=== PATIENT | female | born 1980 | race Caucasian/White ===

== ENCOUNTER 2024-05-25 14:54 | Outpatient (CLI) | payer OTHER, SELFPAY ==
--- NOTE | ~2024-05-25 | MM_ITS ---
EXAMINATION: MM screening kervin BI w batsheva HISTORY: Screening TECHNIQUE: Craniocaudal and mediolateral oblique 3-D tomosynthesis images were obtained and synthetic 2-D images were generated. CAD analysis was submitted and interpreted. COMPARISON: No prior mammogram is available for comparison at this institution. BREAST PARENCHYMAL COMPOSITION: Not dense: There are scattered areas of fibroglandular density. FINDINGS: There are small low-density masses in both breasts which are obscured by fibroglandular tis jay. There are no suspicious calcifications or architectural distortion. IMPRESSION: 1. Small bilateral low-density masses. 2. Additional mammographic views and possible breast ultrasound are recommended. BI-RADS Category 0: Incomplete: Needs additional imaging evaluation. Reviewed, dictated and finalized at location [] IMPRESSION: 1. Small bilateral low-density masses. 2. Additional mammographic views and possible breast ultrasound are recommended . BI-RADS Category 0: Incomplete: Needs additional imaging evaluation.
--- OUTSIDE RECORDS SUMMARY | 2024-05-25 15:01 | XMS_ITS | Encounter Summary ---
Author Organization [facility] Address [address] [place] [address] Care Team Providers Care Local Company Flatbed Truck Driver Name Role Phone Corinna Arroyo MD Primary Care Provider [phone] Reason for Visit * Reason Comments Medication Refill Encounter Details Date Type Department Care Team (Late st Contact Info) Description 11/03/2017 Refill [facility] Endocrinology [address] [place] [address] Leonor Mora MD [address] [place] [address] Social History Tobacco Use Types Packs/Day Years Used Date Smoking Tobacco: Former Cigarettes Q uit: 03/16/2007 Smokeless Tobacco: Never Alcohol Use Standard Drinks/Week Comments No 0 (1 standard drink = 0.6 oz pur e alcohol) Comments No Sex and Gender Information Value Date Recorded Sex Assigned at Not on file Legal Sex Female 5:35 AM INTEGRITY SPECIALIST Gender Identity Not on file Sexual Orientation Not on file documented as of this encounter Miscellaneous Notes * Telephone Encounter - Maral Shah - 11/03/2017 12:58 PM CDT Nov 02/21/18 [place] 08/19/17 documented in this encounter Plan of Treatment Not on file documented as of this encounter Visit Diagnoses Not on filedocumented in this encounter Care Teams Local Company Flatbed Truck Driver Relationship Specialty Start Date End Date Corinna Arroyo MD [address] [place] [address] PCP - General 08/31/07 documented as of this encounter
--- OUTSIDE RECORDS SUMMARY | 2024-05-25 15:02 | XMS_ITS | Encounter Summary ---
Author Organization [facility] Address [address] [place] [address] Care Team Providers Care Helicopter Dispatcher Name Role Phone Corinna Arroyo MD Primary Care Provider [phone] Encounter Details Date Type Department Care Team (Late st Contact Info) Description 06/27/2017 Lab Requisition [facility] Laboratory Services [facility] [address] [place] [phone] [place] [address] [facility] [address] [place] [address] Contact with and (suspected) exposure to potentially hazardous body fluids (CODE) Social History Tobacco Use Types Packs/Day Years Used Date Smoking Tobacco: Former Cigarettes Q uit: 03/16/2007 Smokeless Tobacco: Never Alcohol Use Standard Drinks/Week Comments No 0 (1 standard drink = 0.6 oz pur e alcohol) Comments No Sex and Gender Information Value Date Recorded Sex Assigned at Not on file Legal Sex Female 5:35 AM AIR BRUSH ARTIST Gender Identity Not on file Sexual Orientation Not on file documented as of this encounter Plan of Treatment Not on file documented as of this encounter Procedures Procedure Name Priority Date/Time Associated Diagnosis Comments HEPATITIS C RNA PCR, QUANTITATIVE Routine 06/27/2017 3:50 PM CDT Contact with and (suspected) exposure to potentially hazardous body fluids (CODE) documented in this encounter Results * HEPATITIS C RNA PCR, QUANTITATIVE (06/27/2017 3:50 PM CDT) HEPATITIS C RNA PCR, QUANT Undetected Undetected IU/mL 06/28/2017 8:18 PM CDT [facility] Comment: Result in log IU/mL is Undetected. ADDITIONAL INFORMATION The quantification range of this assay is 15 to 100,000,000 IU/mL (1.18 log to 8.00 log IU/mL). Testing was performed using the chris HCV test ([employer] with the chris HealthyChic0 System. Test Performed by: [facility] [address] [place] [address] Blood Collection / Unknown 06/27/2017 3:50 PM CDT 06/27/2017 3:51 PM CDT Ryan Mccall MD CHEMISTRY ORDERABLES Final R esult [facility] documented in this encounter Visit Diagnoses Diagnosis Contact with and (suspected) exposure to potentially hazardous body fluids (CODE) documented in this encounter Care Teams Helicopter Dispatcher Relationship Specialty Start Date End Date Corinna Arroyo MD [address] [place] [address] PCP - General 08/31/07 documented as of this encounter
--- OUTSIDE RECORDS SUMMARY | 2024-05-25 15:02 | XMS_ITS | Encounter Summary ---
Author Organization [facility] Address [address] [place] [address] Care Team Providers Care Senior Outside Sales Representative Name Role Phone Corinna Arroyo MD Primary Care Provider [phone] Encounter Details Date Type Department Care Team (Late st Contact Info) Description 01/26/2008 Outpatient Historical [facility] [place] [id number] [place] [address] Cholelithiasis NOS Social History Tobacco Use Types Packs/Day Years Used Date Smoking Tobacco: Former Cigarettes Q uit: 03/16/2007 Comments No Sex and Gender Information Value Date Recorded Sex Assigned at Not on file Legal Sex Female 5:35 AM CLIENT DELIVERY MANAGER Gender Identity Not on file Sexual Orientation Not on file documented as of this encounter Plan of Treatment Not on file documented as of this encounter Procedures Procedure Name Priority Date/Time Associated Diagnosis Comments PATHOLOGY Routine 02/02/2008 10:18 AM CLIENT DELIVERY MANAGER documented in this encounter Results * PATHOLOGY (02/02/2008 10:18 AM CLIENT DELIVERY MANAGER) FINAL REPORT [facility] [address] [place], [place] [address] Patient: MARY GREGORIO : 1980 Procedure Date: 02/02/2008 Accession Date: 02/02/2008 Case No: [id number] Ordering Dr: ANABELLA OHARA Case types AW, BW, FW, NW and SH are performed by [facility] [place], [place] SURGICAL PATHOLOGY & NON-GYNECOLOGIC CYTOPATHOLOGY REPORT DIAGNOSIS GALLBLADDER, LAPAROSCOPIC CHOLECYSTECTOMY: - CHRONIC CHOLECYSTITIS, CHOLESTEROLOSIS, AND CHOLELITHIASIS. Specimen Description: Gallbladder. Operative Procedure: Laparoscopic cholecystectomy. Patient Information/Histor y/Diagnosis: Biliary colic. Gross: Received in one container labeled Mary Gregorio., gallbladder is a 7.8 x 2.6 x 1.3-cm intact gallbladder. The serosa is pink-ray and glistening. The mucosa is red with scattered yellow speckling. The cystic duct is patent. Eleven easily crushed yellow, multifaceted stones are identified within the lumen of the gallbladder. The stones range from 0.2 cm to 0.4 cm. The average wall thickness is 0.2 cm. The cystic duct margin and automotive sales representative sections of gallbladder are submitted in block A1. [facility]/SK 02.02.2008 05:11 pm Microscopic: The slide is labeled [id number] and Mary Gregorio. Histologic sections of the gallbladder mucosa reveal chronic inflammation. There are collections of foamy macrophages present in the glandular villi, consistent with cholesterolosis. There is no evidence of malignancy. GL/GDH 02.05.2008 02:45 pm Staging Form: No. ELECTRONIC SIGNATURE FOR ALONZO CAMPOS M.D.- 02/05/08 04:23 pm INTERFACE SYSTEM 02/02/2008 10:1 8 AM CLIENT DELIVERY MANAGER Anabella Ohara MD PATHOLOGY/CYTOLOGY ORDERABLES Final Result INTERFACE SYSTEM Refer to clinic/hospital department documented in this encounter Visit Diagnoses Diagnosis Calculus of gallbladder without mention of cholecystitis or obstruction documented in this encounter Care Teams Senior Outside Sales Representative Relationship Specialty Start Date End Date Corinna Arroyo MD [address] [place] [address] PCP - General 08/31/07 documented as of this encounter
--- OUTSIDE RECORDS SUMMARY | 2024-05-25 15:02 | XMS_ITS | Encounter Summary ---
Author Organization [employer] Address [address] [place] [address] Care Team Providers Care Kosher Dietary Service Manager Name Role Phone Corinna Arroyo MD Primary Care Provider [phone] Encounter Details Date Type Department Care Team (Latest Contact Info) Description 09/02/2008 Outpatient Historical [facility] Tasneem Marshall MD [address] [place] [address] Other Specified Noninflammatory Disorder of Vagina Social History Tobacco Use Types Packs/Day Years Used Date Smoking Tobacco: Former Cigarettes Q uit: 03/16/2007 Comments No Sex and Gender Information Value Date Recorded Sex Assigned at Not on file Legal Sex Female 5:35 AM VIDEO GAME MAKER Gender Identity Not on file Sexual Orientation Not on file documented as of this encounter Plan of Treatment Not on file documented as of this encounter Visit Diagnoses Diagnosis Other specified noninflammatory disorder of vagina documented in this encounter Care Teams Kosher Dietary Service Manager Relationship Specialty Start Date End Date Corinna Arroyo MD [address] [place] [address] PCP - General 08/31/07 documented as of this encounter
--- OUTSIDE RECORDS SUMMARY | 2024-05-25 15:03 | XMS_ITS | Clinical Summary ---
Author Organization [facility] Address [address] [place] [address] Care Team Providers Care Relationship Executive Name Role Phone Corinna Arroyo MD Primary Care Provider [phone] Allergies Active Allergy Reactions Criticality Noted Date Comments Mushroom Combination No.1 Fever Low 09/15/2012 Medications Cholecalciferol , Vitamin D3, 2,000 unit Capsule Take 4,000 Units by mouth daily. 08/04/2015 Active NEXPLANON 68 mg Implant 01/13/2018 Active montelukast (SINGULAIR) 10 mg tablet TAKE 1 TABLET BY MOUTH ONCE DAILY 30 Tablet 06/06/2018 Active LEVOTHYROXINE 150 mcg tablet TAKE 1 TABLET BY MOUTH EVERY MORNING 90 Tablet 03/06/2019 Active Active Problems Problem Noted Date Diagnosed Date Prediabetes 09/04/2018 Morbid obesity with BMI of 50.0-59.9, adult 07/13 PCOS (polycystic ovarian syndrome) 05/20/2016 Primary hypothyroidism 08/01/2015 Hyperandrogenemia 08/01/2015 Female hirsutism 05/03/2014 Vitamin D deficiency 03/05/2010 Asthma, exercise induced 03/05/2010 Resolved Problems Problem Noted Date Diagnosed Date Resolved Date , GDMA2; Girl 06/25/2017 09/04/2018 Normal labor 06/24/2017 06/25/2017 Gestational diabetes mellitus, class A2 06/24/2017 06/25/2017 uterine contractions in third trimester, antepartum 05/23/2017 11/28/2017 Supervision of high risk pre gnancy in third trimester 01/24/2017 11/28/2017 GDM (gestational diabetes mellitus) 12/29/2016 09/04/2018 Insulin resistance 08/01/2015 9 Elevated fasting glucose 07/23/2013 Dyslipidemia (high LDL; low HDL) 04/24/2013 08/01/2015 Irregular menstrual cycle 11/30/2012 Hypothyroidism 09/15/2012 08/01/2015 Hypothyroidism 09/06/2012 09/15/2012 Depressive disorder 01/29/2010 08/19/19 13 Morbid obesity 01/29/2010 08/02/2016 Immunizations Immunization Administration Dates Next Due (ADACEL/BOOSTRIX)(10 YR UP) TDAP VACCINE, 0.5ML, IM 04/05/2017 INFLUENZA VACCINE QUADRIVALENT 3 YR UP PF IM 05/2013 Influenza Seasonal Unspecified Formulation IM ,12/24/2015 Family History Medical History Relation Name Comments Heart Disease Father Hypertension Father Breast Cancer Maternal Grandmother 70s Colon Cancer Maternal Grandmother Hypertension Mother Ovarian Cancer Neg Hx Relation Name Status Comments Father Alive Maternal Grandfather Alive Maternal Grandmother Mother Alive Paternal Grandfather Paternal Grandmother Social History Tobacco Use Types Packs/Day Years Used Date Smoking Tobacco: Former Cigarettes Q uit: 03/16/2007 Smokeless Tobacco: Never Alcohol Use Standard Drinks/Week Comments No 0 (1 standard drink = 0.6 oz pur e alcohol) Comments No Sex and Gender Information Value Date Recorded Sex Assigned at Not on file Legal Sex Female 5:35 AM DENTISTRY PROFESSOR Gender Identity Not on file Sexual Orientation Not on file Last Filed Vital Signs Vital Sign Reading Time Taken Comments Blood Pressure 117/82 03/24/2021 9:25 AM DENTISTRY PROFESSOR Pulse 80 10/02/2018 10:05 AM CDT Temperature 36.7 C (98 F) 06/27/2017 8:30 AM CDT Respiratory Rate 18 06/27/2017 8:30 AM CDT Oxygen Saturation 98% 06/26/2017 9:30 PM CDT Inhaled Oxygen Concentration - - Weight 133.8 kg (295 lb) 03/24/2021 9:25 AM DENTISTRY PROFESSOR Height 162.6 cm (5' 4 ) 03/24/2021 9:25 AM DENTISTRY PROFESSOR Body Mass Index 50.64 03/24/2021 9:25 AM DENTISTRY PROFESSOR Plan of Treatment Health Maintenance Due Date Last Done Comments PNEUMOCOCCAL VACCINE 0-49 YEARS (1 of 2 - PCV) 1988 HEPATITIS B VACCINES (1 of 3 - 19+ 3-dose series) 2001 CERVICAL CANCER SCREENING 05/23/20192018, 05/20/2016, 05/20/2016, Additional history exists Pre-Diabetes and Diabetes Screening 10/07/2021 10/07/2018, 03/11/2018, 12/27/2016, Additional history exists BREAST CANCER SCREENING 2022 INFLUENZA VACCINE (#1) 2023 8, 12/15/2016, 12/24/2015, Additional history exists Preventative Visit- Commercial 03/14/2024 09/04/2018, 05/22/2018, 05/20/2016, Additional history exists DTAP/TDAP/TD VACCINES (2 - Td or Tdap) 04/05/2027 04/05/2017 HPV VACCINES Aged Out No longer eligi ble based on patient's age to complete this topic Procedures Procedure Name Priority Date/Time Associated Diagnosis Comments HEMOGLOBIN A1C Routine 10/07/2018 11:06 AM CDT Preventative health care CERV/VAG CYTO AGE BASED SCREEN PAP Routine 05/22/2018 9:05 AM CDT Cervical smear, as part of routine gynecological examination from Last 3 Months or Most Recently Relevant to Health Maintenance Results * (ABNORMAL) HEMOGLOBIN A1C (10/07/2018 11:06 AM CDT) HEMOGLOBIN A1C 5.7(H) <5.7 % 10/07/2018 4:45 PM CDT [facility] EST. AVG GLUCOSE, A1C 117 mg/dL 10/07/2018 4:45 PM T [facility] Blood Venipuncture / Unknown 10/07/2018 11:06 AM CDT 10/07/2018 11:06 AM CDT Narrative [facility] - 10/07/2018 4:45 PM CDT HGB A1C INTERPRETATION NORMAL: <5.7% PRE-DIABETES: 5.7 - 6.4% DIABETES: 6.5% OR GREATER Corinna Arroyo MD CHEMISTRY ORDERABLES Final R esult [facility]# [id number] [address] [place] [address] * CERV/VAG CYTO AGE BASED SCREEN PAP (05/22/2018 9:05 AM CDT) COMMENT (PAP): SEE COMMENT 9 7:50 AM CDT [facility] Comment: This order for age-based cervical cancer and STI screening follows ACOG guidelines(PB 168, 140, BPC863). See individual assays for performing site location. CLINICAL INFORMATION Information not provided 05/29/2018 7:50 AM CDT [facility] LAST MENSTRUAL PERIOD 05/10/18 05/29/2018 7:50 AM CDT [facility] PREV PAP: 05/20/16 05/29/2018 7:50 AM CDT [facility] PREV BX: INFORMATION NOT PROVIDED 05/29/2018 7:50 AM CDT [facility] SOURCE Endocervix 05/29/2018 7:50 AM CDT [facility] ADEQUACY: SEE COMMENT 05/29/2018 7:50 AM CDT [facility] Comment: Satisfactory for evaluation. Endocervical/transformation zone component present. PAP INTERP Negative for intraepithelial lesion or malignancy. 05/29/2018 7:50 AM CDT [facility] CYTOLOGY INFECTION Shift in vaginal carroll suggestive of bacterial vaginosis. 05/29/2018 7:50 AM CDT [facility] COMMENT This Pap test has been evaluated with computer assisted technology. 05/29/2018 7:50 AM CDT [facility] ROD MACHINE OPERATOR: SEE COMMENT 2018 7:50 AM CDT [facility] Comment: MXL, CT(ASCP) CT screening location: [place] [address] [address] [place] REVIEW ROD MACHINE OPERATOR: SEE COMMENT 05/29/2018 7:50 AM CDT [facility] Comment: AMW, CT(ASCP) CT screening location: [place] [address] [address] Rhodes EXPLANATORY NOTE SEE COMMENT 019 7:50 AM CDT [facility] Comment: EXPLANATORY NOTE: The Pap is a screening test for cervical cancer. It is not a diagnostic test and is subject to false negative and false positive results. It is most reliable when a satisfactory sample, regularly obtained, is submitted with relevant clinical findings and history, and when the Pap result is evaluated along with historic and current clinical information. HPV E6/E7 Not Detected Not Detected 05/29/2018 7:50 AM CDT [facility] Comment: This test was performed using the APTIMA HPV Assay ([employer] This assay detects E6/E7 viral messenger RNA (mRNA) from 14 high-risk HPV types (16,18,31,33,35,39,45,51,52,56,58,59,66,68). The analytical performance characteristics of this assay have been determined by [employer]. The modifications have not been cleared or approved by the FDA. This assay has been validated pursuant to the CLIA regulations and is used for clinical purposes. Genital SWAB OF ENDOCERVIX / Unknown Collection / Unknown 05/22/2018 9:05 AM CDT 05/22/2018 10:49 AM CDT Narrative [facility] - 05/29/2018 7:50 AM CDT Performing Organization Information: Site ID: [id number] [facility]: [facility] Address: [address] [place] [address] Director: Sanchez Koehler D.O., MPH Site ID: [id number] [facility] Address: [address] [facility] [place] [address] Director: Deangelo Valdivia june Vishal DEWEY PATHOLOGY/CYTOLOGY ORDERABLES Final Result [facility] [phone] from Last 3 Months or Most Recently Relevant to Health Maintenance Insurance ADMINISTRATIVE CONCEPTS LBP Advance Directives For more information, please contact: [phone] * Full Code (Latest Code Status on File) Date Activated Date Inactivated Comments 06/25/2017 6:02 AM 06/27/2017 1:36 PM * Full Code Date Activated Date Inactivated Comments 06/24/2017 10:03 AM 06/25/2017 2:21 AM * Full Code Date Activated Date Inactivated Comments 06/24/2017 9:29 AM 06/24/2017 10:03 AM Care Teams Relationship Executive Relationship Specialty Start Date End Date Corinna Arroyo MD [address] [facility] [address] [place] [address] PCP - General 08/31/07
--- OUTSIDE RECORDS SUMMARY | 2024-05-25 15:03 | XMS_ITS | Encounter Summary ---
Author Organization [facility] Address [address] [place] [address] Care Team Providers Care Compliance Spec Name Role Phone Yady Begum MD Primary Care Provider [phone] Encounter Details Date Type Department Care Team (Late st Contact Info) Description 02/01/2008 Outpatient Historical [facility] [place], Authorized [place] [address] [place] [address] Cholecystitis, Unspecified Social History Tobacco Use Types Packs/Day Years Used Date Smoking Tobacco: Former Cigarettes Q uit: 03/16/2007 Comments No Sex and Gender Information Value Date Recorded Sex Assigned at Not on file Legal Sex Female 5:35 AM FRONT EDGER Gender Identity Not on file Sexual Orientation Not on file documented as of this encounter Plan of Treatment Not on file documented as of this encounter Procedures Procedure Name Priority Date/Time Associated Diagnosis Comments XR CHOLANGIOGRAM OPERATIVE Routine 02/02/2008 9:00 AM FRONT EDGER POC , URINE Routine 02/02/2008 8:00 AM FRONT EDGER CBC WITH DIFFERENTIAL Stat 02/01/2008 10:25 PM FRONT EDGER LIPASE Stat 02/01/2008 10:25 PM FRONT EDGER AMYLASE Stat 02/01/2008 10:25 PM FRONT EDGER COMPREHENSIVE METABOLIC PANEL Stat 02/01/2008 10:25 PM FRONT EDGER documented in this encounter Results * XR CHOLANGIOGRAM OPERATIVE (02/02/2008 9:00 AM FRONT EDGER) Anatomical Region Laterality Modality Abdomen Other 02/02/2008 9:00 AM FRONT EDGER Narrative 02/05/2008 10:44 AM FRONT EDGER [facility] [address] [place], [place] [address] Admit Date: 02/02/2008 GABINO GREGORIO Sex: F Admit Prov: RAEGAN OHARA Date: 1980 [facility] CMRN: [id number] Room: [place] [address] SSN: [id number] IMAGING SERVICES Ordering Prov: N/A Accession Number: [id number] Interpretation OPERATIVE CHOLANGIOGRAM 02/02/2008 Clinical history: Cholecystitis, operative cholangiogram Fluoroscopy of the abdominal right upper quadrant was utilized in the OR during performance of an operative cholangiogram. Two fluoroscopic spot radiographs were obtained following contrast instillation of the common duct which appears normal in caliber, smooth in outline and without evidence of retained stone or other filling defect. There is unobstructed drainage into the second portion of the duodenum. Impression: Negative operative cholangiogram. . Dictated by: MANNIE CAMPBELL 02/05/2008 08:43 Electronically signed by: MANNIE CAMPBELL 02/05/2008 10:43 Transcribed: 02/05/2008 10:31 AMK Procedure Note Mannie Campbell MD - 02/05/2008 [facility] [address] [place], [place] [address] Admit Date: 02/02/2008 GABINO GREGORIO Sex: F Admit Prov: RAEGAN OHARA Date: 1980 Primary Care Prov: YADY BEGUM CMRN: [id number] Room: [place] [address] SSN: [id number] IMAGING SERVICES Ordering Prov: N/A Interpretation OPERATIVE CHOLANGIOGRAM 02/02/2008 Clinical history: Cholecystitis, operative cholangiogram Fluoroscopy of the abdominal right upper quadrant was utilized in theOR during performance of an operative cholangiogram. Two fluoroscopicspot radiographs were obtained following contrast instillation of thecommon duct which appears normal in caliber, smooth in outline and without evidence of retained stone or other filling defect. There isunobstructed drainage into the second portion of the duodenum. Impression: Negative operative cholangiogram. . Dictated by: MANNIE CAMPBELL 02/05/2008 08:43 Electronically signed by: MANNIE CAMPBELL 02/05/2008 10:43 Transcribed: 02/05/2008 10:31 AMK us Raegan Ohara MD DIAGNOSTIC IMAGING ORDERABLES Final Result * POC , URINE (02/02/2008 8:00 AM FRONT EDGER) , URINE POC Negative Negative [facility] Urine specimen (specimen) 02/02/2008 8:00 AM FRONT EDGER 02/02/2008 8:00 AM FRONT EDGER us Raegan Ohara MD POINT OF CARE TESTING Final Re sult Performing Organization Address [facility] de Phone Number INTERFACE SYSTEM Refer to clinic/hospital department [facility] CLIA# [id number] [address] [place] [address] * LIPASE (02/01/2008 10:25 PM FRONT EDGER) LIPASE 32 13 - 60 U/L [facility] Blood specimen (specimen) 02/01/2008 10:25 PM FRONT EDGER 02/01/2008 11:35 PM FRONT EDGER Parag Greenberg MD CHEMISTRY ORDERABLES Final Resul t Performing Organization Address City/[facility] de Phone Number INTERFACE SYSTEM Refer to clinic/hospital department [facility] CLIA# [id number] [address] [place] [address] * (ABNORMAL) COMPREHENSIVE METABOLIC PANEL (02/01/2008 10:25 PM FRONT EDGER) CREATININE 0.90 0.51 - 0.95 mg/dL [facility] SODIUM 140 135 - 145 mmol/L [facility] ALT 93(H) 0 - 31 U/L [facility] ALKALINE PHOSPHATASE 52 35 - 104 U/L [facility] BILIRUBIN TOTAL 0.6 0.2 - 1.0 mg/dL [facility] CO2 26 22 - 30 mmol/L [facility] TOTAL PROTEIN 8.0 6.3 - 8.6 g/dL [facility] POTASSIUM 3.8 3.5 - 4.9 mmol/L [facility] GLUCOSE 115(H) 65 - 99 mg/dL [facility] AST 91(H) 12 - 32 U/L [facility] BUN 13 6 - 20 mg/dL [facility] CALCIUM 9.1 8.6 - 10.2 mg/dL [facility] CHLORIDE 102 96 - 108 mmol/L [facility] ALBUMIN 5.0(H) 3.4 - 4.8 g/dL [facility] GFR, >60 >=60 mL/min/1. 7 sq meter [facility] GFR >60 >=60 mL/min/1. 7 sq meter [facility] Comment: Modification of Diet in Renal Disease (MDRD) study formula. Estimated GFR rate interpretative information for both Americans and non- Americans is available on the [facility] Intranet at: [email or web address] Select: Lab Policies and Procedures Select: Reference Ranges - GFR Blood specimen (specimen) 02/01/2008 10:25 PM FRONT EDGER 02/01/2008 11:35 PM FRONT EDGER us Parag Greenberg MD CHEMISTRY ORDERABLES Edited INTERFACE SYSTEM Refer to clinic/hospital department [facility] CLIA# [id number] [address] [place], [place] [address] * CBC WITH DIFFERENTIAL (02/01/2008 10:25 PM FRONT EDGER) HEMATOCRIT 41.2 35.5 - 44.0 % [facility] RDW-STDEV 42.4 37.1 - 48.7 fL [facility] RBC 4.56 3.90 - 4.90 M/uL [facility] MCHC 33.5 31.5 - 35.5 % [facility] MCV 90.4 82.0 - 99.0 fL [facility] PLATELETS 253 140 - 350 K/uL [facility] HEMOGLOBIN 13.8 11.8 - 14.8 g/dL [facility] RDW 13.0 11.5 - 14.5 % [facility] WBC 9.3 4.0 - 9.8 K/uL [facility] MCH 30.3 27.2 - 32.6 pg [facility] MPV 11.4 9.3 - 12.4 fL [facility] BASOPHILS 0 0 - 2 % [facility] BASOPHILS ABSOLUTE 0.02 0.00 - 0.20 K/uL [facility] MONOCYTES 7 3 - 13 % [facility] MONOCYTE ABSOLUTE 0.68 0.10 - 1.30 K/uL [facility] NEUTROPHILS 66 45 - 70 % [facility] NEUTROPHIL ABSOLUTE 6.20 1.90 - 7.00 K/uL [facility] EOSINOPHILS 2 0 - 7 % [facility] EOSINOPHIL ABSOLUTE 0.19 0.00 - 0.70 K/uL [facility] LYMPHOCYTES 24 16 - 45 % [facility] LYMPHOCYTE ABSOLUTE 2.25 0.70 - 4.50 K/uL [facility] Blood specimen (specimen) 02/01/2008 10:25 PM FRONT EDGER 02/01/2008 11:35 PM FRONT EDGER Parag Greenberg MD HEMATOLOGY ORDERABLES Edited Performing Organization Address [facility] de Phone Number INTERFACE SYSTEM Refer to clinic/hospital department [facility] CLIA# [id number] [address] [place] [address] * (ABNORMAL) AMYLASE (02/01/2008 10:25 PM FRONT EDGER) AMYLASE 258(H) 28 - 100 U/L [facility] Blood specimen (specimen) 02/01/2008 10:25 PM FRONT EDGER 02/01/2008 11:35 PM FRONT EDGER Parag Greenberg MD CHEMISTRY ORDERABLES Final Resul t Performing Organization Address [facility] Phone Number INTERFACE SYSTEM Refer to clinic/hospital department [facility] CLIA# [id number] [address] [place] [address] documented in this encounter Visit Diagnoses Diagnosis Cholecystitis, unspecified documented in this encounter Care Teams Compliance Spec Relationship Specialty Start Date End Date Yady Begum MD [address] [place] [address] PCP - General 08/31/07 documented as of this encounter
--- OUTSIDE RECORDS SUMMARY | 2024-05-25 15:03 | XMS_ITS | Encounter Summary ---
Author Organization [employer] Address [address] [place] [address] Care Team Providers Care Quality Technician Fiberglass Name Role Phone Corinna Arroyo MD Primary Care Provider [phone] Encounter Details Date Type Department Care Team (Latest Contact Info) Description 10/03/2007 Outpatient Historical [facility], [address] Tasneem Marshall MD [address] [facility] [address] [place] [id number] Routine Gynecological Examination Social History Tobacco Use Types Packs/Day Years Used Date Smoking Tobacco: Never Assessed Comments No Sex and Gender Information Value Date Recorded Sex Assigned at Not on file Legal 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 Gender Identity Not on file Sexual Orientation Not on file documented as of this encounter Plan of Treatment Not on file documented as of this encounter Procedures Procedure Name Priority Date/Time Associated Diagnosis Comments CERV/VAG CYTOPATH, SUREPATH W/RFLX HPV Routine 10/02/2007 11:34 AM CDT documented in this encounter Results * CERV/VAG CYTOPATH, SUREPATH W/RFLX HPV (10/02/2007 11:34 AM CDT) SOURCE Cervix, Endocervix S [facility] LAST MENSTRUAL PERIOD 07-13-07 [facility] CYTOTECHNOLOGI ST: SEUN CASE(ASCP) [facility] Comment: Lab test performed by: [employer] [facility] [address] [place] [address] BEV SRIVASTAVA MD REPORT STATUS FINAL [facility] ADEQUACY: Satisfactory for evaluation. Endocervical/trans formation zone component present. [facility] CLINICAL INFORMATION Information not provided [facility] PAP INTERP Negative for intraepithelial lesion or malignancy. [facility] PREV BX: Information not provided [facility] Steerer Pap Comment Based on the cytology result, reflex High Risk HPV DNA testing was not performed. [facility] PREV PAP: Information not provided [facility] Specimen from uterine cervix (specimen) 10/02/2007 11:34 AM CDT 10/03/2007 12:09 PM CDT Tasneem Marshall MD PATHOLOGY/CYTOLOGY ORDERA BLES Final Result [facility] CLIA# [id number] [address] [place] [address] documented in this encounter Visit Diagnoses Diagnosis Routine gynecological examination documented in this encounter Care Teams Quality Technician Fiberglass Relationship Specialty Start Date End Date Corinna Arroyo MD [address] [place] [address] PCP - General 08/31/07 documented as of this encounter
--- OUTSIDE RECORDS SUMMARY | 2024-05-25 15:03 | XMS_ITS | Encounter Summary ---
Author Organization [employer] Address [address] [place] [address] Care Team Providers Care Grinding Supervisor Name Role Phone Corinna Arroyo MD Primary Care Provider [phone] Encounter Details Date Type Department Care Team (Latest Contact Info) Description 08/19/2008 Outpatient Historical [facility], [address] Tasneem Marshall MD [address] [facility] [address] [place] [address] Routine Gynecological Examination Social History Tobacco Use Types Packs/Day Years Used Date Smoking Tobacco: Former Cigarettes Q uit: 03/16/2007 Comments No Sex and Gender Information Value Date Recorded Sex Assigned at Not on file Legal 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
--- OUTSIDE RECORDS SUMMARY | 2024-05-25 15:03 | XMS_ITS | Encounter Summary ---
Author Organization [facility] Address [address] [place] [address] Care Team Providers Care Station Installer And Repairer Name Role Phone Yady Begum MD Primary Care Provider [phone] Encounter Details Date Type Department Care Team (Late st Contact Info) Description 01/24/2008 Outpatient Historical [facility] Yady Begum MD [address] [facility] [address] [place] [address] Abdominal Pain, Unspecified Site Social History Tobacco Use Types Packs/Day Years Used Date Smoking Tobacco: Former Cigarettes Q uit: 03/16/2007 Comments No Sex and Gender Information Value Date Recorded Sex Assigned at Not on file 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 Gender Identity Not on file Sexual Orientation Not on file documented as of this encounter Plan of Treatment Not on file documented as of this encounter Procedures Procedure Name Priority Date/Time Associated Diagnosis Comments US ABDOMEN LIMITED Timed Study 01/24/2008 7: 27 AM BEAMING MACHINE OPERATOR documented in this encounter Results * US ABDOMEN LIMITED (01/24/2008 7:27 AM BEAMING MACHINE OPERATOR) Anatomical Region Laterality Modality Abdomen Other 01/24/2008 7:27 AM BEAMING MACHINE OPERATOR Narrative 01/24/2008 9:56 AM BEAMING MACHINE OPERATOR [address] [address] Admit Date: 01/24/2008 MARY GREGORIO Sex: F Admit Prov: YADY BEGUM Date: 1980 Primary Care Prov: MARIOLA AHUMADA CMRN: [id number] [id number] Ordering Prov: N/A Accession Number: [id number] Interpretation ULTRASOUND OF THE ABDOMEN, LIMITED, 01/24/2008 History: Abdominal pain. Findings: Multiple transverse, longitudinal and oblique images of the right upper quadrant were obtained. The patient had been fasting. The gallbladder was contracted and there is shadowing in the fundus of the gallbladder, representing stones. The common bile duct has a normal caliber. Opinion: Gallbladder contracted around shadowing stones. . Dictated by: JANIE BAR 01/24/2008 08:14 Electronically signed by: JANIE BAR 01/24/2008 09:54 Transcribed: 01/24/2008 09:27 DKT Procedure Note Janie Bar MD - 01/24/2008 [facility] [address] [place], [place] [address] Admit Date: 01/24/2008 MARY GREGORIO Sex: F Admit Prov: YADY BEGUM Date: 1980 Primary Care Prov: MARIOLA AHUMADA CMRN: [id number] [id number] [facility] Ordering Prov: N/A Interpretation ULTRASOUND OF THE ABDOMEN, LIMITED, 01/24/2008 History: Abdominal pain. Findings: Multiple transverse, longitudinal and oblique images of theright upper quadrant were obtained. The patient had been fasting. Thegallbladder was contracted and there is shadowing in the fundus of thegallbladder, representing stones. The common bile duct has a normal caliber. Opinion: Gallbladder contracted around shadowing stones. . Dictated by: JANIE BAR 01/24/2008 08:14 Electronically signed by: JANIE BAR 01/24/2008 09:54 Transcribed: 01/24/2008 09:27 DKT Yady Begum MD ORDERABLES Final Result documented in this encounter Visit Diagnoses Diagnosis Abdominal pain, unspecified site documented in this encounter Care Teams Station Installer And Repairer Relationship Specialty Start Date End Date Yady Begum MD [address] [facility] [address] [place] [address] PCP - General 08/31/07 documented as of this encounter
== END 2024-05-25 14:55 | disposition home or self-care (01) ==
PROVIDERS: PCP Family Medicine; Visit Provider Nurse Practitioner Family
DX: Z12.31 Encounter for screening mammogram for malignant neoplasm of breast (principal); R92.8 Other abnormal and inconclusive findings on diagnostic imaging of breast
CPT/HCPCS: 77063; 77067

== ENCOUNTER 2024-07-09 08:21 | Outpatient (CLI) | payer OTHER, SELFPAY ==
--- NOTE | ~2024-07-09 | MMUS_ITS ---
EXAMINATION: MM diagnostic kervin BI w batsheva, US breast BI limited HISTORY: 43-year-old woman with small bilateral low density masses seen on screening baseline mammo graphy presents for diagnostic evaluation. TECHNIQUE: Additional 3-D tomosynthesis images of the bilateral breasts were performed and synthetic 2-D images were generated. CAD analysis was submitted and interpreted. High resolution limited bilateral breast ultrasound was performed. COMPARISON: Baseline mammography dated 05/25/2024 BREAST PARENCHYMAL COMPOSITION: Not Dense. There are scattered areas of fibroglandular density. FINDINGS: MAMMOGRAPHIC FINDINGS: The asymmetry within the upper right breast and at the upper outer left breast faintly persisted with spot compression for which focused ultrasound was then performed ULTRASOUND: At the 2:00 position of the right breast approximately 7 cm from the nipple is a well-circumscribed, avascular, oval focus of decreased echogenicity, corresponding to the abnormality seen on mammography . No posterior shadowing or increased through transmission is present. Sonographic evaluation of the upper outer left breast, and remainder of the right breast demonstrated benign fibroglandular elements without a cystic or solid lesion of concern. 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 Findings within the upper outer left breast for which a summation artifact is suspected (overlapping fibroglandular tissues). Recommend 6 month ultrasound of the right breast, as follow-up in order to obtain 2 years of sonograp hic stability BI-RADS category 3, probably benign findings. Reviewed, dictated and finalized at location A. IMPRESSION: Findings within the upper inner right breast, likely representing a small fibr oadenoma morphologically for which 2 years of stability is recommended. Findings within the upper outer left breast for which a summation artifact is s uspected (overlapping fibroglandular tissues). Recommend 6 month ultrasound of the right breast, as follow-up in order to obta in 2 years of sonographic stability BI-RADS category 3, probably benign findings.
--- OUTSIDE RECORDS SUMMARY | 2024-07-09 08:38 | XMS_ITS | Continuity of Care Document ---
Author Organization [facility] Address [address] [place] [address] Phone Care Team Providers Care Surfacing Technician Name Role Phone Albert Borrego MD Unavailable Unavailable Allergies, Adverse Reactions, Alerts Substance Reaction Status Criticality No Known Allergies Active No Inform ation Medications Medication Instructions Dosage Effective Dates (start - stop) Status Comments levothyroxine 88 mcg tablet - Active SINGULAIR (unknown strength) Not Available - Active Mononessa (28) 0.25 mg-35 mcg tablet - Active FISH OIL (unknown strength) Not Available - Active CINNAMON (unknown strength) Not Available - Active Vitamin D2 50,000 unit capsule - Active VITAMIN B-12 (unknown strength) Not Available - Active MELOXICAM (unknown strength) Not Available - Active Procedures Procedure Date OFFICE/OUTPATIENT VISIT [facility] Advance Directives Directive Yes / No Effective Date File Name No Information Encounters Encounter Description Practice Location Reason(s) For Visit Diagnoses Date Provider Providers Copied on Encounter OFFICE/OUTPA TIENT VISIT [facility], [address] [place], [place] [address], [place], [address], [phone] [facility] Follow Up of l knee pain (chief complaint) Patellar malalignment syndromeChondro malacia of patella [address] Salima Price. [address] [place] [address], [id number] . tel: [phone] Referring Provider: Ciarra Gu[address], [place], [address]. tel:[phone] Family History Family Member Type Diagnosis Age At Onset No Information Payers Payer name Insurance type Covered alliance party ID Authoriza tion(s) No Information Social History Type Description Quantity Date Captured Comments Alcohol Use Details Unknown Caffeine Use Details Unknown Tobacco Use Status Ex-cigarette smoker 014 Smoking Status Former smoker Non-Smoking Tobacco Use Details : No Details Available : No Details Available Sex Female Vital Signs Date / Time: Height Weight BMI Pulse Rate Blood Pressure Temperature Respiratory Rate Body Surface Area Head Circumference Head Circ. Percentile Wt./Feroz. Percentile BMI percentile Pulse Ox Inhaled Ox 9:06 AM 64.00 in 124.738 kg (275.00 lbs) 47.2 0 kg/m eter (2) 118/81 mm[Hg] Chief Complaint And Reason For Visit From encounter dated '01/30/2014 08:40'. Follow Up of l knee pain (chief complaint) Reason For Referral Reason For Referral No Information Plan Of Treatment Date Type Action Status Referral Ordered: RADEX KNE 3 VIEWS LT ordered History Of Present Illness Encounter Date Complaint History Of Prese nt Illness Follow Up of l knee pain Functional Status Date Functional Assessmen t No Information Instructions Date Instruction Additional Infor mation activity as tolerated Related to Chondromalacia of patella apply heating pad or ice as tolerated Related to Chondromalacia of patella Assessments Type Assessment Date assessment Patellar malalignment syndrome N assessment Chondromalacia of patella Patient Care Teams Name Effective Dates (start - stop) Status Members No Information
--- OUTSIDE RECORDS SUMMARY | 2024-07-09 08:38 | XMS_ITS | Encounter Summary ---
Author Organization [facility] Address 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 Gender Identity Not on file Sexual Orientation Not on file documented as of this encounter Plan of Treatment Not on file documented as of this encounter Procedures Procedure Name Priority Date/Time Associated Diagnosis Comments PATHOLOGY Routine 02/02/2008 10:18 AM SCHOOL COUNSELOR documented in this encounter Results * PATHOLOGY (02/02/2008 10:18 AM SCHOOL COUNSELOR) FINAL REPORT [facility] [address] [place], [place] [address] Patient: MARY GREGORIO : 1980 Procedure Date: 02/02/2008 Accession Date: 02/02/2008 Case No: [id number] Ordering Dr: ANABELLA OHARA Case types AW, BW, FW, NW and SH are performed by [facility], [place], [place] SURGICAL PATHOLOGY & NON-GYNECOLOGIC CYTOPATHOLOGY REPORT [...] 0.2 cm. The cystic duct margin and access representative sections of gallbladder are submitted in block A1. [facility]/SK 02.02.2008 05:11 pm Microscopic: The slide is labeled [id number] and Mary Gregorio. Histologic sections of the gallbladder mucosa reveal chronic inflammation. There are collections of foamy macrophages present in the glandular villi, consistent with cholesterolosis. There is no evidence of malignancy. GL/GDH 02.05.2008 02:45 pm Staging Form: No. ELECTRONIC SIGNATURE FOR ALONZO CAMPOS M.D.- 02/05/08 04:23 pm INTERFACE SYSTEM 02/02/2008 10:1 8 AM SCHOOL COUNSELOR Anabella Ohara MD PATHOLOGY/CYTOLOGY ORDERABLES Final Result INTERFACE SYSTEM Refer to clinic/hospital department documented in this encounter Visit Diagnoses Diagnosis Calculus of gallbladder without mention of cholecystitis or obstruction documented in this encounter Care Teams Greaser Operator Relationship Specialty Start Date End Date Corinna Arroyo MD [address] [place] [address] PCP - General 08/31/07 documented as of this encounter
--- OUTSIDE RECORDS SUMMARY | 2024-07-09 08:38 | XMS_ITS | Encounter Summary ---
Author Organization [employer] Address [address] [place] [address] Care Team Providers Care Auto Care Center Manager Name Role Phone Corinna Arroyo MD Primary Care Provider [phone] Encounter Details Date Type Department Care Team (Latest Contact Info) Description 09/02/2008 Outpatient Historical [facility] Tasneem Marshall MD [address] [place] [address] Other Specified Noninflammatory Disorder of Vagina Social History Tobacco Use Types Packs/Day Years Used Date Smoking Tobacco: Former Cigarettes Q uit: 03/16/2007 Comments No Sex and Gender Information Value Date Recorded Sex Assigned at Not on file Legal Sex Female 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
--- OUTSIDE RECORDS SUMMARY | 2024-07-09 08:38 | XMS_ITS | Encounter Summary ---
Author Organization [facility] Address [address] [place] [address] Care Team Providers Care Strategic Solutions Consultant Name Role Phone Corinna Arroyo MD Primary Care Provider [phone] Reason for Visit * Reason Comments Medication Refill Encounter Details Date Type Department Care Team (Late st Contact Info) Description 11/03/2017 Refill [facility] Endocrinology [address] [place] [address] Leonor Mora MD [address] [place] [address] Social History Tobacco Use Types Packs/Day Years Used Date Smoking Tobacco: Former Cigarettes Q uit: 03/16/2007 Smokeless Tobacco: Never Alcohol Use Standard Drinks/Week Comments No 0 (1 standard drink = 0.6 oz pur e alcohol) Comments No Sex and Gender Information Value Date Recorded Sex Assigned at Not on file Legal 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
--- OUTSIDE RECORDS SUMMARY | 2024-07-09 08:38 | XMS_ITS | Encounter Summary ---
Author Organization [employer] Address [address] [place] [address] Care Team Providers Care Freight Conductor Name Role Phone Corinna Arroyo MD Primary Care Provider [phone] Encounter Details Date Type Department Care Team (Latest Contact Info) Description 10/03/2007 Outpatient Historical [facility], [address] Tasneem Marshall MD [address] [facility] [address] [place] [address] Routine Gynecological Examination Social History Tobacco Use Types Packs/Day Years Used Date Smoking Tobacco: Never Assessed Comments No Sex and Gender Information Value Date Recorded Sex Assigned at Not on file Legal Sex Female 5:35 AM MEAT PASSER Gender Identity Not on file Sexual Orientation Not on file documented as of this encounter Plan of Treatment Not on file documented as of this encounter Procedures Procedure Name Priority Date/Time Associated Diagnosis Comments CERV/VAG CYTOPATH, SUREPATH W/RFLX HPV Routine 10/02/2007 11:34 AM CDT documented in this encounter Results * CERV/VAG CYTOPATH, SUREPATH W/RFLX HPV (10/02/2007 11:34 AM CDT) SOURCE Cervix, Endocervix S [facility] LAST MENSTRUAL PERIOD 07-13-07 [facility] CYTOTECHNOLOGI ST: SEUN CASE(ASCP) [facility] Comment: Lab test performed by: [email or web address] [facility] [address] [place] [address] BEV SRIVASTAVA MD REPORT STATUS [facility] ADEQUACY: Satisfactory for evaluation. Endocervical/trans formation zone component present. [facility] CLINICAL INFORMATION Information not provided [facility] PAP INTERP Negative for intraepithelial lesion or malignancy. [facility] PREV BX: Information not provided [facility] Home Care Chaplain Pap Comment Based on the cytology result, reflex High Risk HPV DNA testing was not performed. [facility] PREV PAP: Information not provided [facility] Specimen from uterine cervix (specimen) 10/02/2007 11:34 AM CDT 10/03/2007 12:09 PM CDT Tasneem Marshall MD PATHOLOGY/CYTOLOGY ORDERA BLES Final Result [facility] CLIA# [id number] [address] [place] [address] documented in this encounter Visit Diagnoses Diagnosis Routine gynecological examination documented in this encounter Care Teams Freight Conductor Relationship Specialty Start Date End Date Corinna Arroyo MD [address] [place] [address] PCP - General 08/31/07 documented as of this encounter
--- OUTSIDE RECORDS SUMMARY | 2024-07-09 08:38 | XMS_ITS | Encounter Summary ---
Author Organization [employer] Address [address] [place] [address] Care Team Providers Care Bleach Machine Operator Name Role Phone Corinna Arroyo MD Primary Care Provider [phone] Encounter Details Date Type Department Care Team (Latest Contact Info) Description 08/19/2008 Outpatient Historical [facility], [address] Tasneem Marshall MD [address] [place] [address] Routine Gynecological Examination Social History Tobacco Use Types Packs/Day Years Used Date Smoking Tobacco: Former Cigarettes Q uit: 03/16/2007 Comments No Sex and Gender Information Value Date Recorded Sex Assigned at Not on file Legal Sex Female 5:35 AM SENIOR TAX SPECIALIST Gender Identity Not on file Sexual Orientation Not on file documented as of this encounter Plan of Treatment Not on file documented as of this encounter Visit Diagnoses Diagnosis Routine gynecological examination documented in this encounter Care Teams Bleach Machine Operator Relationship Specialty Start Date End Date Corinna Arroyo MD [address] [place] [address] PCP - General 08/31/07 documented as of this encounter
--- OUTSIDE RECORDS SUMMARY | 2024-07-09 08:38 | XMS_ITS | Clinical Summary ---
Author Organization [facility] Address [address] [place] [address] Care Team Providers Care Residential Child Care Counselor Name Role Phone Corinna Arroyo MD Primary Care Provider [phone] Allergies Active Allergy Reactions Criticality Noted Date [...] on file Legal Sex Female 5:35 AM GLASS ENGRAVER Gender Identity Not on file Sexual Orientation Not on file Last Filed Vital Signs Vital Sign Reading Time Taken Comments Blood Pressure 117/82 03/24/2021 9:25 AM GLASS ENGRAVER Pulse 80 10/02/2018 10:05 AM CDT Temperature 36.7 C (98 F) 06/27/2017 8:30 AM CDT Respiratory Rate 18 06/27/2017 8:30 AM CDT Oxygen Saturation 98% 06/26/2017 9:30 PM CDT Inhaled Oxygen Concentration - - Weight 133.8 kg (295 lb) 03/24/2021 9:25 AM GLASS ENGRAVER Height 162.6 cm (5' 4 ) 03/24/2021 9:25 AM GLASS ENGRAVER Body Mass Index 50.64 03/24/2021 9:25 AM GLASS ENGRAVER Plan of Treatment Health Maintenance Due Date Last Done Comments HEPATITIS B VACCINES (1 of 3 - 19+ 3-dose series) 2001 CERVICAL CANCER SCREENING 05/23/2019 PAP SMEAR 05/23/2019 05/22/2018, 11/2016, 05/20/2016, Additional history exists Pre-Diabetes and Diabetes Screening 10/07/2021 10/07/2018, 03/11/2018, 12/27/2016, Additional history exists BREAST CANCER SCREENING 2022 HPV/Cotest (21-29) 05/23/2023 05/22/2018, 0 05/20/2016, 12/06/2013, Additional history exists HPV/Cotest (30-65) 05/23/2023 05/22/2018, 0 05/20/2016, 12/06/2013, Additional history exists INFLUENZA VACCINE (#1) 2023 8, 12/15/2016, 12/24/2015, [...] 5.7(H) <5.7 % 10/07/2018 4:45 PM CDT [facility] EST. AVG GLUCOSE, A1C 117 mg/dL 10/07/2018 4:45 PM T [facility] Blood Venipuncture / Unknown 10/07/2018 11:06 AM CDT 10/07/2018 11:06 AM CDT Narrative [facility] - 10/07/2018 4:45 PM CDT HGB A1C INTERPRETATION NORMAL: <5.7% PRE-DIABETES: 5.7 - 6.4% DIABETES: 6.5% OR GREATER Corinna Arroyo MD CHEMISTRY ORDERABLES Final R esult [facility] CLIA# [id number] [address] [place] [address] * CERV/VAG CYTO AGE BASED SCREEN PAP (05/22/2018 9:05 AM CDT) COMMENT (PAP): SEE COMMENT 7:50 AM CDT [facility] Comment: This order for age-based cervical cancer and STI screening follows ACOG guidelines(PB 168, 140, ZLZ358). See individual assays for performing site location. [...] 05/29/2018 7:50 AM CDT [facility] SERICULTURIST: SEE COMMENT 2018 7:50 AM CDT [facility] Comment: MXL, CT(ASCP) CT screening location: [employer] [place] [address] [address] [place] [address] REVIEW SERICULTURIST: SEE COMMENT 05/29/2018 7:50 AM CDT [facility] Comment: AMW, CT(ASCP) CT screening location: [place] [address] [address] [address] EXPLANATORY NOTE SEE COMMENT 019 7:50 AM [...] was performed using the APTIMA HPV Assay ([employer] This assay detects E6/E7 viral messenger RNA (mRNA) from 14 high-risk HPV types (16,18,31,33,35,39,45,51,52,56,58,59,66,68). The analytical performance characteristics of this assay have been determined by [facility]. The modifications have not been cleared or approved by the FDA. This assay has been validated pursuant to the CLIA regulations and is used for clinical purposes. Genital SWAB OF ENDOCERVIX / Unknown Collection / Unknown 05/22/2018 9:05 AM CDT 05/22/2018 10:49 AM CDT Narrative [facility] - 05/29/2018 7:50 AM CDT Performing Organization Information: Site ID: [id number] Name: [facility] Address: [address] [place] [address] [place] [address] Director: Sanchez Koehler D.O., MPH Site ID: [id number] [facility]: [facility] Address: [address] [address] [place] [address] Director: Deangelo Valdivia june Vishal DEWEY PATHOLOGY/CYTOLOGY ORDERABLES Final Result [facility] [phone] from Last 3 Months or Most Recently Relevant to Health Maintenance Insurance ADMINISTRATIVE CONCEPTS LBP Advance Directives For more information, please contact: [phone] * Full Code (Latest Code Status on File) Date Activated Date Inactivated Comments 06/25/2017 6:02 AM 06/27/2017 1:36 PM * Full Code Date Activated Date Inactivated Comments 06/24/2017 10:03 AM 06/25/2017 2:21 AM * Full Code Date Activated Date Inactivated Comments 06/24/2017 9:29 AM 06/24/2017 10:03 AM Care Teams Residential Child Care Counselor Relationship Specialty Start Date End Date Corinna Arroyo MD [address] [place] [address] PCP - General 08/31/07
--- OUTSIDE RECORDS SUMMARY | 2024-07-09 08:38 | XMS_ITS | Encounter Summary ---
Author Organization [facility] Address 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 ADDITIONAL INFORMATION The quantification range of this assay is 15 to 100,000,000 IU/mL (1.18 log to 8.00 log IU/mL). Testing was performed using the chris HCV test ([employer] with the chris ClrTouch0 System. Test Performed by: [facility] [address] [place] [address] Blood Collection / Unknown 06/27/2017 3:50 PM CDT 06/27/2017 3:51 PM CDT Ryan Mccall MD CHEMISTRY ORDERABLES Final R esult [facility] documented in this encounter Visit Diagnoses Diagnosis Contact with and (suspected) exposure to potentially hazardous body fluids (CODE) documented in this encounter Care Teams Dedicated Regional Driver Relationship Specialty Start Date End Date Corinna Arroyo MD [address] [place] [address] PCP - General 08/31/07 documented as of this encounter
--- OUTSIDE RECORDS SUMMARY | 2024-07-09 08:38 | XMS_ITS | Encounter Summary ---
Author Organization [facility] Address [address] [place] [address] Care Team Providers Care Heat Regulator Name Role Phone Yady Begum MD Primary Care Provider [phone] Encounter Details Date Type Department Care Team (Late st Contact Info) Description 01/24/2008 Outpatient Historical [facility] Yady Begum MD [address] [facility] [address] [place] [address] Abdominal Pain, Unspecified Site Social History Tobacco Use Types Packs/Day Years Used Date Smoking Tobacco: Former Cigarettes Q uit: 03/16/2007 Comments No Sex and Gender Information Value Date Recorded Sex Assigned at Not on file Legal Sex Female 5:35 AM CORROSION TECHNICIAN Gender Identity Not on file Sexual Orientation Not on file documented as of this encounter Plan of Treatment Not on file documented as of this encounter Procedures Procedure Name Priority Date/Time Associated Diagnosis Comments US ABDOMEN LIMITED Timed Study 01/24/2008 7: 27 AM CORROSION TECHNICIAN documented in this encounter Results * US ABDOMEN LIMITED (01/24/2008 7:27 AM CORROSION TECHNICIAN) Anatomical Region Laterality Modality Abdomen Other 01/24/2008 7:27 AM CORROSION TECHNICIAN Narrative 01/24/2008 9:56 AM CORROSION TECHNICIAN [address] [address] Admit Date: 01/24/2008 MARY GREGORIO Sex: F Admit Prov: YADY BEGUM Date: 1980 Primary Care Prov: MARIOLA AHUMADA CMRN: [id number] [id number] Ordering Prov: N/A Accession Number: [id number] Interpretation ULTRASOUND OF THE ABDOMEN, LIMITED, 01/24/2008 [...] Procedure Note Janie Bar MD - 01/24/2008 [facility] [address] [place], [place] [address] Admit Date: 01/24/2008 MARY GREGORIO Sex: F Admit Prov: YADY BEGUM Date: 1980 Primary Care Prov: MARIOLA AHUMADA CMRN: [id number] [id number] IM[facility]ING SERVICES Ordering Prov: N/A Interpretation ULTRASOUND [...] site documented in this encounter Care Teams Heat Regulator Relationship Specialty Start Date End Date Yady Begum MD [address] [facility] [address] [place] [address] PCP - General 08/31/07 documented as of this encounter
--- OUTSIDE RECORDS SUMMARY | 2024-07-09 08:38 | XMS_ITS | Encounter Summary ---
Author Organization [employer] Address [address] [place] [address] Care Team Providers Care Tire And Lube Technician Name Role Phone Yady Begum MD Primary Care Provider [phone] Encounter Details Date Type Department Care Team (Late st Contact Info) Description 02/01/2008 Outpatient Historical [facility]Y [facility] Er, Authorized [place] [address] [place] [address] Cholecystitis, Unspecified Social History Tobacco Use Types Packs/Day Years Used Date Smoking Tobacco: Former Cigarettes Q uit: 03/16/2007 Comments No Sex and Gender Information Value Date Recorded Sex Assigned at Not on file Legal Sex Female 5:35 AM UNDERCOAT SPRAYER Gender Identity Not on file Sexual Orientation Not on file documented as of this encounter Plan of Treatment Not on file documented as of this encounter Procedures Procedure Name Priority Date/Time Associated Diagnosis Comments XR CHOLANGIOGRAM OPERATIVE Routine 02/02/2008 9:00 AM UNDERCOAT SPRAYER POC , URINE Routine 02/02/2008 8:00 AM UNDERCOAT SPRAYER CBC WITH DIFFERENTIAL Stat 02/01/2008 10:25 PM UNDERCOAT SPRAYER LIPASE Stat 02/01/2008 10:25 PM UNDERCOAT SPRAYER AMYLASE Stat 02/01/2008 10:25 PM UNDERCOAT SPRAYER COMPREHENSIVE METABOLIC PANEL Stat 02/01/2008 10:25 PM UNDERCOAT SPRAYER documented in this encounter Results * XR CHOLANGIOGRAM OPERATIVE (02/02/2008 9:00 AM UNDERCOAT SPRAYER) Anatomical Region Laterality Modality Abdomen Other 02/02/2008 9:00 AM UNDERCOAT SPRAYER Narrative 02/05/2008 10:44 AM UNDERCOAT SPRAYER [facility] [address] [place], [place] [address] Admit Date: 02/02/2008 GABINO GREGORIO Sex: F Admit Prov: RAEGAN OHARA Date: 1980 [facility] CMRN: [id number] Room: [place] [address] SSN: [id number] IMAGING SERVICES Ordering Prov: N/A Accession Number: [id number] Interpretation OPERATIVE CHOLANGIOGRAM 02/02/2008 Clinical history: Cholecystitis, [...] Procedure Note Mannie Campbell MD - 02/05/2008 [facility] [address] [place], [place] [address] Admit Date: 02/02/2008 GABINO GREGORIO Sex: F Admit Prov: RAEGAN OHARA Date: 1980 Primary Care Prov: YADY BEGUM CMRN: [id number] Room: [place] [address] SSN: [id number] IMAGING SERVICES Ordering Prov: N/A Interpretation OPERATIVE [...] * POC , URINE (02/02/2008 8:00 AM UNDERCOAT SPRAYER) , URINE POC Negative Negative [facility] Urine specimen (specimen) 02/02/2008 8:00 AM UNDERCOAT SPRAYER 02/02/2008 8:00 AM UNDERCOAT SPRAYER us Raegan Ohara MD POINT OF CARE TESTING Final Re sult Performing Organization Address [facility] de Phone Number INTERFACE SYSTEM Refer to clinic/hospital department [facility] CLIA# [id number] [address] [place] [address] * LIPASE (02/01/2008 10:25 PM UNDERCOAT SPRAYER) LIPASE 32 13 - 60 U/L [facility] Blood specimen (specimen) 02/01/2008 10:25 PM UNDERCOAT SPRAYER 02/01/2008 11:35 PM UNDERCOAT SPRAYER Parag Greenberg MD CHEMISTRY ORDERABLES Final Resul t Performing Organization Address City/[facility] de Phone Number INTERFACE SYSTEM Refer to clinic/hospital department [facility] CLIA# [id number] [address] [place] [address] * (ABNORMAL) COMPREHENSIVE METABOLIC PANEL (02/01/2008 10:25 PM UNDERCOAT SPRAYER) CREATININE 0.90 0.51 - 0.95 mg/dL [facility] SODIUM 140 135 - 145 mmol/L [facility] ALT 93(H) 0 - 31 U/L [facility] ALKALINE PHOSPHATASE 52 35 - 104 U/L [facility] BILIRUBIN TOTAL 0.6 0.2 - 1.0 mg/dL [facility] CO2 26 22 - 30 mmol/L [facility] TOTAL PROTEIN 8.0 6.3 - 8.6 g/dL [facility] POTASSIUM 3.8 3.5 - 4.9 mmol/L [facility] GLUCOSE 115(H) 65 - 99 mg/dL [facility] AST 91(H) 12 - 32 U/L [facility] BUN 13 6 - 20 mg/dL [facility] CALCIUM 9.1 8.6 - 10.2 mg/dL [facility] CHLORIDE 102 96 - 108 mmol/L [facility] ALBUMIN 5.0(H) 3.4 - 4.8 g/dL [facility] GFR, >60 >=60 mL/min/1. 7 sq meter [facility] GFR >60 >=60 mL/min/1. 7 sq meter [facility] Comment: Modification of Diet in Renal Disease (MDRD) study formula. Estimated GFR rate interpretative information for both Americans and non- Americans is available on the [facility] Intranet at: [email or web address] Select: Lab Policies and Procedures Select: Reference Ranges - GFR Blood specimen (specimen) 02/01/2008 10:25 PM UNDERCOAT SPRAYER 02/01/2008 11:35 PM UNDERCOAT SPRAYER us Parag Greenberg MD CHEMISTRY ORDERABLES Edited INTERFACE SYSTEM Refer to clinic/hospital department [facility] CLIA# [id number] [address] [place], [place] [address] * CBC WITH DIFFERENTIAL (02/01/2008 10:25 PM UNDERCOAT SPRAYER) HEMATOCRIT 41.2 35.5 - 44.0 % [facility] RDW-STDEV 42.4 37.1 - 48.7 fL [facility] RBC 4.56 3.90 - 4.90 M/uL [facility] MCHC 33.5 31.5 - 35.5 % [facility] MCV 90.4 82.0 - 99.0 fL [facility] PLATELETS 253 140 - 350 K/uL [facility] HEMOGLOBIN 13.8 11.8 - 14.8 g/dL [facility] RDW 13.0 11.5 - 14.5 % [facility] WBC 9.3 4.0 - 9.8 K/uL [facility] MCH 30.3 27.2 - 32.6 pg [facility] MPV 11.4 9.3 - 12.4 fL [facility] BASOPHILS 0 0 - 2 % [facility] BASOPHILS ABSOLUTE 0.02 0.00 - 0.20 K/uL [facility] MONOCYTES 7 3 - 13 % [facility] MONOCYTE ABSOLUTE 0.68 0.10 - 1.30 K/uL [facility] NEUTROPHILS 66 45 - 70 % [facility] NEUTROPHIL ABSOLUTE 6.20 1.90 - 7.00 K/uL [facility] EOSINOPHILS 2 0 - 7 % [facility] EOSINOPHIL ABSOLUTE 0.19 0.00 - 0.70 K/uL [facility] LYMPHOCYTES 24 16 - 45 % [facility] LYMPHOCYTE ABSOLUTE 2.25 0.70 - 4.50 K/uL [facility] Blood specimen (specimen) 02/01/2008 10:25 PM UNDERCOAT SPRAYER 02/01/2008 11:35 PM UNDERCOAT SPRAYER Parag Greenberg MD HEMATOLOGY ORDERABLES Edited Performing Organization Address [facility] de Phone Number INTERFACE SYSTEM Refer to clinic/hospital department [facility] CLIA# [id number] [address] [place] [address] * (ABNORMAL) AMYLASE (02/01/2008 10:25 PM UNDERCOAT SPRAYER) AMYLASE 258(H) 28 - 100 U/L [facility] Blood specimen (specimen) 02/01/2008 10:25 PM UNDERCOAT SPRAYER 02/01/2008 11:35 PM UNDERCOAT SPRAYER Parag Greenberg MD CHEMISTRY ORDERABLES Final Resul t Performing Organization Address [facility] Phone Number INTERFACE SYSTEM Refer to clinic/hospital department [facility] CLIA# [id number] [address] [place] [address] documented in this encounter Visit Diagnoses Diagnosis Cholecystitis, unspecified documented in this encounter Care Teams Tire And Lube Technician Relationship Specialty Start Date End Date Yady Begum MD [address] [place] [address] PCP - General 08/31/07 documented as of this encounter
== END 2024-07-09 08:22 | disposition home or self-care (01) ==
LOC: CHSIMG 08:24
PROVIDERS: PCP Nurse Practitioner Family; Visit Provider Nurse Practitioner Family
DX: R92.8 Other abnormal and inconclusive findings on diagnostic imaging of breast (principal)
CPT/HCPCS: 76642; 77062; 77066; G0279

== ENCOUNTER 2024-07-27 08:35 | Outpatient (CLI) | payer OTHER, SELFPAY ==
--- OUTSIDE RECORDS SUMMARY | 2024-07-27 08:43 | XMS_ITS | Encounter Summary ---
Author Organization [facility] Address [address] [place] [address] Care Team Providers [facility] Owner Name Role Phone Corinna Arroyo MD Primary Care Provider [phone] Encounter Details Date Type Department Care Team (Latest Contact Info) Description 09/02/2008 Outpatient Historical [id number] Tasneem Marshall MD [address] [place] [id number] Other Specified Noninflammatory Disorder of Vagina Social History Tobacco Use Types Packs/Day Years Used Date Smoking Tobacco: Former Cigarettes Q uit: 03/16/2007 Comments No Sex and Gender Information Value Date Recorded Sex Assigned at Not on file Legal Sex Female 5:35 AM [employer]PER[employer] Gender Identity Not on file Sexual Orientation Not on file documented as of this encounter Plan of Treatment Not on file documented as of this encounter Visit Diagnoses Diagnosis Other specified noninflammatory disorder of vagina documented in this encounter Care Teams [facility] Owner Relationship Specialty Start Date End Date Corinna Arroyo MD [address] [place] [address] PCP - General 08/31/07 documented as of this encounter
--- OUTSIDE RECORDS SUMMARY | 2024-07-27 08:43 | XMS_ITS | Encounter Summary ---
Author Organization [facility] Address [address] [place] [address] Care Team Providers Care Core Java Engineer Name Role Phone Corinna Arroyo MD Primary Care Provider [phone] Encounter Details Date Type Department Care Team (Latest Contact Info) Description 08/19/2008 Outpatient Historical [facility], [address] Tasneem Marshall MD [address] [place] [address] Routine Gynecological Examination Social History Tobacco Use Types Packs/Day Years Used Date Smoking Tobacco: Former Cigarettes Q uit: 03/16/2007 Comments No Sex and Gender Information Value Date Recorded Sex Assigned at Not on file Legal Sex Female 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
--- OUTSIDE RECORDS SUMMARY | 2024-07-27 08:43 | XMS_ITS | Data Portability ---
Author Organization [facility] Address [address] [place] [address] Care Team Providers Care Instrumental Teacher Name Role Phone YOVANY BECERRA Primary Care Provider Assessment No assessment recorded. Plan of Treatment Reminders Order Date Submit Date Provider Last Modified By Organization Details Last Modified Time Details Appointments ANY 15 2024 09:00A Radha Becerra NP-Shad Not available Not available Not available Lab lipid panel, serum 2024 025 [facility], [address], [address], [place], [address], 05/10/2024 21:40:04 CBC w/ auto diff 2024 025 [facility], [address], [address], [place], [address], 05/10/2024 20:47:58 HbA1c (hemogl obin A1c), blood 2024 025 [facility], [address] [facility] [address], [place], [address], 05/17/2024 00:31:28 CMP, serum or plasma 2024 025 [facility], [address] [facility] [address], [place], [address], 05/10/2024 21:40:02 TSH + free T4, serum 2024 025 [facility], [address], [address], [place], [address], 05/24/2024 09:34:34 Referral sleep medicin e referra l - snoring , daytime fatigue - please eval and treat for NAGA [address] [facility], [address] [place], [address], 07/24/2024 14:38:[address] referra l - chronic otitis right ear, please eval and treat 2024 025 [facility], [place], operated by [facility] Otolaryngology (Ent), [address] [place] [address], [place] [address], [place], [address], 07/26/2024 12:11:15 Procedures None recorde d. Surgeries None recorde d. Imaging MAMMO, screeni ng, digital , bilater al 2024 025 [facility], [address] [place], [address], 06/19/2024 14:44:30 Medication Orders amlodip ine 5 mg tablet [address] [facility]/Pharmacy #[id number], [address], [place], [address], 07/09/2024 16:55:25 lisinop ril 10 mg tablet [address] [facility]/Pharmacy #[id number], [address], [place], [address], 07/09/2024 16:55:26 lisinop ril 10 mg tablet 2024 025 [email or web address] [facility]/Pharmacy #[id number], [address], [place], [address], 06/29/2024 13:50:28 amlodip ine 5 mg tablet 2024 025 [id number], [address], [place], [address], 06/07/2024 12:08:51 levothy roxine 150 mcg tablet 2024 025 [id number], [address] [place], [address], 06/07/2024 12:02:06 amlodip ine 5 mg tablet 2024 025 [id number], [address] [place], [address], 06/01/2024 11:38:57 levothy roxine 150 mcg tablet 2024 025 [id number], [address] [place], [address], 06/01/2024 10:37:07 Patient TargetsNo targets recorded. Patient Instructions Encounter Date Encounter Id Patient Instructions Last Modified By Organization Details Last Modified Time 05/10/2024 [id number] A healthy lifestyle: care instructions [facility] Not available 05/10/2024 13:49:25 Reason for Referral Patient Services Coordinator Referral fo r Chronic otitis media chronic otitis right ear, please eval and treat Referring Physician: Yovany Becerra, Director Education, Encounter Date: 06/07/2024 Sleep Medicine Referral for Snoring snoring, daytime fatigue- please eval and treat for NAGA Referring Physician: Yovany Becerra Director Education, Encounter Date: 06/07/2024 Results Created Date Observation Date Name Description Value Unit Range Abnormal Flag Note LastModifiedBy Organization Detail LastModifiedTime 05/10/1905/10/2024 COMPL ETE BLOOD COUNT AUTO DIFF white blood count 6.0 x10e3 /uL 3.4-10 .8 normal Not Available [facility] (Lab) [address] [facility], [place], [address], 05/10/2024 20:47:58 05/10/19 25 05/10/2024 COMPL ETE BLOOD COUNT AUTO DIFF red blood count 4.42 x10e6 /uL 3.77-5 .28 normal Not Available [facility] (Lab) [address], [place], [address], 05/10/2024 20:47:58 05/10/19 25 05/10/2024 COMPL ETE BLOOD COUNT AUTO DIFF hemoglobin 13.8 g/dL 11.1-1 5.9 normal Not Available [facility] (Lab) [address], [place], [address], 05/10/2024 20:47:58 05/10/19 25 05/10/2024 COMPL ETE BLOOD COUNT AUTO DIFF hematocrit 41.1 % 34.0-4 6.6 normal Not Available [facility] (Lab) [address], [place], [address], 05/10/2024 20:47:58 05/10/19 25 05/10/2024 COMPL ETE BLOOD COUNT AUTO DIFF mean corpuscular volume 93 fL 79-97 normal Not Available [facility] ([facility]) [address], [place], [address], 05/10/2024 20:47:58 05/10/19 25 05/10/2024 COMPL ETE BLOOD COUNT AUTO DIFF mean corpuscular hemoglobin 31.2 pg 26.6-3 3.0 normal Not Available [facility] (Lab) [address] [place], [address], 05/10/2024 20:47:58 05/10/19 25 05/10/2024 COMPL ETE BLOOD COUNT AUTO DIFF mean corpuscular HGB conc 33.6 g/dL 31.5-3 5.7 normal Not Available [facility] (Lab) [address] [place], [address], 05/10/2024 20:47:58 02/27/20 25 05/10/2024 COMPL ETE BLOOD COUNT AUTO DIFF red cell distribution width 12.4 % 11.5-1 4.5 normal Not Available [facility] (Lab) [address] [facility], [place], [address], 05/10/2024 20:47:58 05/10/19 25 05/10/2024 COMPL ETE BLOOD COUNT AUTO DIFF platelet count 255 x10e3 /uL 150-45 0 normal Not Available [facility] (Lab) [address] [facility], [place], [address], 05/10/2024 20:47:58 05/10/19 25 05/10/2024 COMPL ETE BLOOD COUNT AUTO DIFF mean platelet volume 10.6 fL 8.9-12 .7 normal Not Available [facility] (Lab) [address] [facility], [place], [address], 05/10/2024 20:47:58 05/10/19 25 05/10/2024 COMPL ETE BLOOD COUNT AUTO DIFF immature granulocytes pct auto 0.2 % not estb. Not Available [facility] (Lab) [address] [place], [address], 05/10/2024 20:47:58 05/10/19 25 05/10/2024 COMPL ETE BLOOD COUNT AUTO DIFF neutrophils percent auto 62 % not estb. Not Available [facility] (Lab) [address] [facility], [place], [address], 05/10/2024 20:47:58 05/10/19 25 05/10/2024 COMPL ETE BLOOD COUNT AUTO DIFF lymphocytes percent auto 29 % not estb. Not Available [facility] (Lab) [address] [facility], [place], [address], 05/10/2024 20:47:58 05/10/19 25 05/10/2024 COMPL ETE BLOOD COUNT AUTO DIFF monocytes percent auto 7 % not estb. Not Available [facility] (Lab) [address] [place], [address], 05/10/2024 20:47:58 05/10/19 25 05/10/2024 COMPL ETE BLOOD COUNT AUTO DIFF eosinophils percent auto 2 % not estb. Not Available [facility] (Lab) [address] [place], [address], 05/10/2024 20:47:58 05/10/19 25 05/10/2024 COMPL ETE BLOOD COUNT AUTO DIFF basophils percent auto 1 % not estb. Not Available [facility] (Lab) [address] [place], [address], 05/10/2024 20:47:58 05/10/19 25 05/10/2024 COMPL ETE BLOOD COUNT AUTO DIFF neutrophils absolute auto 3.8 x10e3 /uL 1.4-7. 0 normal Not Available [facility] (Lab) [address] [facility], [place], [address], 05/10/2024 20:47:58 05/10/19 25 05/10/2024 COMPL ETE BLOOD COUNT AUTO DIFF immature granulocytes abs auto 0.0 x10e3 /uL 0.0-0. 1 normal Not Available [facility] (Lab) [address] [place], [address], 05/10/2024 20:47:58 05/10/19 25 05/10/2024 COMPL ETE BLOOD COUNT AUTO DIFF lymphocytes absolute auto 1.8 x10e3 /uL 0.7-3. 1 normal Not Available [facility] (Lab) [address] [place], [address], 05/10/2024 20:47:58 05/10/19 25 05/10/2024 COMPL ETE BLOOD COUNT AUTO DIFF monocytes absolute auto 0.4 x10e3 /uL 0.1-0. 9 normal Not Available [facility] (Lab) [address] [place], [address], 05/10/2024 20:47:58 05/10/19 25 05/10/2024 COMPL ETE BLOOD COUNT AUTO DIFF eosinophils absolute auto 0.1 x10e3 /uL 0.0-0. 4 normal Not Available [facility] (Lab) [address] [place], [address], 05/10/2024 20:47:58 05/10/19 25 05/10/2024 COMPL ETE BLOOD COUNT AUTO DIFF basophils absolute auto 0.0 x10e3 /uL 0.0-0. 2 normal Not Available [facility] (Lab) [address] [place], [address], 05/10/2024 20:47:58 05/10/19 25 05/10/2024 COMPL ETE BLOOD COUNT AUTO DIFF nucleated red blood cells auto 0 % 0-0 normal Not Available [facility] (Lab) [address] [place], [address], 05/10/2024 20:47:58 05/10/19 25 05/10/2024 THYRO ID STIMU LATIN G HORMO NE thyroid stimulating hormone 8.880 uIU/m L 0.450- 4.500 high Not Available [facility] (Lab) [address] [place], [address], 05/10/2024 21:08:58 05/10/19 25 05/10/2024 COMPR EHENS VALENCIA METAB OLIC PANEL sodium 141 mmol/ L 134-14 4 normal Not Available [facility] (Lab) [address] [place], [address], 05/10/2024 21:40:02 05/10/19 25 05/10/2024 COMPR EHENS VALENCIA METAB OLIC PANEL potassium 4.2 mmol/ L 3.5-5. 2 normal Not Available [facility] (Lab) [address] [place], [address], 05/10/2024 21:40:02 05/10/19 25 05/10/2024 COMPR EHENS VALENCIA METAB OLIC PANEL chloride 105 mmol/ L 96-106 normal Not Available [facility] (Lab) [address] [place], [address], 05/10/2024 21:40:02 05/10/19 25 05/10/2024 COMPR EHENS VALENCIA METAB OLIC PANEL carbon dioxide 26 mmol/ L 20-29 normal Not Available [facility] (Lab) [address] [place], [address], 05/10/2024 21:40:02 05/10/19 25 05/10/2024 COMPR EHENS VALENCIA METAB OLIC PANEL anion gap 14.0 mmol/ L Not Available [facility] (Lab) [address] [place], [address], 05/10/2024 21:40:02 05/10/19 25 05/10/2024 COMPR EHENS VALENCIA METAB OLIC PANEL blood urea nitrogen 11 mg/dL 6-24 normal Not Available [facility] ([facility]) [address] [place], [address], 05/10/2024 21:40:02 05/10/19 25 05/10/2024 COMPR EHENS VALENCIA METAB OLIC PANEL creatinine 0.98 mg/dL 0.76-1 .27 normal Not Available [facility] (Lab) [address] [place], [address], 05/10/2024 21:40:02 05/10/19 25 05/10/2024 COMPR EHENS VALENCIA METAB OLIC PANEL glomerular filtration rate 74 mL/mi n/1 Not Available [facility] (Lab) [address] [place], [address], 05/10/2024 21:40:02 05/10/19 25 05/10/2024 COMPR EHENS VALENCIA METAB OLIC PANEL BUN creatinine ratio 12 9-23 normal Not Available [facility] (Lab) [address] [place], [address], 05/10/2024 21:40:02 05/10/19 25 05/10/2024 COMPR EHENS VALENCIA METAB OLIC PANEL glucose 98 mg/dL 70-99 normal Not Available [facility] (Lab) [address] [place], [address], 05/10/2024 21:40:02 05/10/19 25 05/10/2024 COMPR EHENS VALENCIA METAB OLIC PANEL osmolality calculated 281 275-29 5 normal Not Available [facility] (Lab) [address] [place], [address], 05/10/2024 21:40:02 05/10/19 25 05/10/2024 COMPR EHENS VALENCIA METAB OLIC PANEL calcium 9.0 mg/dL 8.7-10 .2 normal Not Available [facility] (Lab) [address] [place], [address], 05/10/2024 21:40:02 05/10/19 25 05/10/2024 COMPR EHENS VALENCIA METAB OLIC PANEL bilirubin total 0.4 mg/dL 0.0-1. 2 normal Not Available [facility] (Lab) [address] [place], [address], 05/10/2024 21:40:02 05/10/19 25 05/10/2024 COMPR EHENS VALENCIA METAB OLIC PANEL AST aspartate aminotransfe rase 17 IU/L 0-40 normal Not Available [facility] (Lab) [address], [place], [address], 05/10/2024 21:40:02 05/10/19 25 05/10/2024 COMPR EHENS VALENCIA METAB OLIC PANEL ALT (alanine aminotransfe rase) 25 IU/L 0-32 normal Not Available [facility] (Lab) [address] [place], [address], 05/10/2024 21:40:02 05/10/19 25 05/10/2024 COMPR EHENS VALENCIA METAB OLIC PANEL total protein 7.0 g/dL 6.0-8. 5 normal Not Available [facility] (Lab) [address] [place], [address], 05/10/2024 21:40:02 05/10/19 25 05/10/2024 COMPR EHENS VALENCIA METAB OLIC PANEL albumin level 4.6 g/dL 3.9-4. 9 normal Not Available [facility] (Lab) [address] [place], [address], 05/10/2024 21:40:02 05/10/19 25 05/10/2024 COMPR EHENS VALENCIA METAB OLIC PANEL globulin 2.4 g/dL 1.5-4. 5 normal Not Available [facility] (Lab) [address], [place], [address], 05/10/2024 21:40:02 05/10/19 25 05/10/2024 COMPR EHENS VALENCIA METAB OLIC PANEL albumin globulin ratio 2.0 1.2-2. 2 normal Not Available [facility] (Lab) [address], [place], [address], 05/10/2024 21:40:02 05/10/19 25 05/10/2024 COMPR EHENS VALENCIA METAB OLIC PANEL alkaline phosphatase 59 IU/L 44-121 normal Not Available [facility] (Lab) [address] [place], [address], 05/10/2024 21:40:02 05/10/19 25 05/10/2024 LIPID PANEL triglyceride s 123 mg/dL 0-149 normal Not Available [facility] ([facility]) [address] [place], [address], 05/10/2024 21:40:04 05/10/19 25 05/10/2024 LIPID PANEL cholesterol 158 mg/dL 100-19 9 normal Not Available [facility] (Lab) [address] [place], [address], 05/10/2024 21:40:04 05/10/19 25 05/10/2024 LIPID PANEL LDL cholesterol 100 mg/dL 0-99 high Not Available [facility]Lab[facility] [address] [place], [address], 05/10/2024 21:40:04 05/10/19 25 05/10/2024 LIPID PANEL VLDL cholesterol (calc) 25 mg/dL 5-40 normal Not Available [facility] (Lab) [address] [place], [address], 05/10/2024 21:40:04 05/10/19 25 05/10/2024 LIPID PANEL HDL cholesterol 39 mg/dL 40-999 low Not Available [facility] (Lab) [address] [place], [address], 05/10/2024 21:40:04 05/10/19 25 05/10/2024 LIPID PANEL LDL HDL ratio 2.6 0-3.2 normal Not Available [facility] (Lab) [address] [place], [address], 05/10/2024 21:40:04 05/10/19 25 05/10/2024 LIPID PANEL chol HDL ratio 4.0 mg/dL 0-4.4 normal Not Available [facility] (Lab) [address] [place], [address], 05/10/2024 21:40:04 05/10/19 25 05/12/2024 HEMOG LOBIN A1C hemoglobin A1C 5.9 % 4.8-5. 6 abnormal Predi abete s: 5.7 - 6.4 Diabe adrianna: >6.4 Glyce josefina contr ol for adult s with diabe adrianna: <7.0 Perfo rmed at: 01 - [facility] [address] [place] [address] Lab Direc tor: Taz boland PhD, Phone : [phone] Not Available [facility] (Lab) [address] [place], [address], 05/12/2024 05:13:03 05/10/19 25 05/12/2024 T4,FR EE(DI RECT) T4,free(dire ct) 0.92 NG/dL 0.82-1 .77 Perfo rmed at: 01 - [facility] [address] [facility], [place] [id number] Lab Direc tor: Taz boland PhD, Phone : [phone] Not Available [facility] (Lab) [address], [place], [address], 05/12/2024 08:12:23 06/20/19 25 05/25/2024 MAMMO , scree azeb, digit al, bilat eral No observ ation record ed. [facility] [address] [place], [address], 06/21/2024 12:23:03 07/11/1907/09/2024 MAMMO , diagn ostic , digit al, bilat eral No observ ation record ed. [facility] [address] [place], [address], 07/17/2024 09:59:18 Result Notes None recorded. Problems Name Problem SNOMED Code Status Onset Date Resolution Date Notes Provider Name and Address Organization Details Recorded Time Polycystic ovary syndrome 547775524 Active 2024 SHY Almonte Attn: Rubens parisi,[address] [place], [address], [facility] 11:30:37 Hypothyroidism 70966756 Active 2024 SHY Almonte Attn: Rubens parisi,[address] [place], [address], [facility] 11:30:52 Asthma 634997725 Active 2024 SHY Almonte Attn: Rubens parisi,[address] [place], [address], [facility] 13:47:42 Migraine 52610263 Active 2024 SHY Almonte Attn: Rubens parisi,[address] [place], [address], [place] [facility] 13:47:49 Essential hypertension 35353433 Active 2024 SHY Almonte Attn: Accountin g,[address] [facility], [place], [address], [place] [facility] 12:08:26 Problem Notes None recorded. Procedures Surgical History Date Name Laterality Status Provider Name and Address Organization Details Recorded Time 03/14/19 08 Cholecystectomy completed SHY Almonte Attn: Accounting, [address] [facility], [place], [address], [place] [facility] 05/10/2024 13:48:07 03/14/19 08 Tonsillectomy completed SHY Almonte Attn: Accounting, [address] [facility], [place], [address], [place] [facility] 05/10/2024 13:48:16 03/14/18 98 Arthroscopic Surgery completed SHY Almonte Attn: Accounting, [address] [facility], [place], [address], [place] [facility] 05/10/2024 13:48:26 Imaging Results Imaging Date Name Status LastModified by Organiz ation Details LastModified Time 05/25/2024 MAMMO, screening, digital, bilateral completed [facility] [address] [place], [address], 06/21/2024 12:23:03 07/09/2024 MAMMO, diagnostic, digital, bilateral completed [facility] [address] [place], [address], 07/17/2024 09:59:18 Procedure Notes None recorded. Medical Equipment None Reported. Allergies No known drug allergies Medications Name Sig Start Date Stop Date Status Note LastModified by Organization Details LastModified Time prednisone 10 mg tablet 10 MG ORALLY EVERY MORNING active Not Available Not Available No t Available amlodipine 5 mg tablet Take 1 tablet every day by oral route. 04/28/ 2025 active Not Available Not Available Not Avai lable amoxicillin 875 mg tablet 875 MG ORALLY EVERY 12 HOURS active Not Available Not Available No t Available lisinopril 10 mg tablet Take 1 tablet every day by oral route. 2024 active Not Available Not Available Not Avai lable levothyroxi ne 150 mcg tablet TAKE 1 TABLET BY MOUTH EVERY DAY active Not Available Not Available No t Available ondansetron 4 mg disintegrat ing tablet DISSOLVE 1 TABLET ON TONGUE EVERY 6 TO 8 HOURS NEEDED active Not Available Not Available No t Available amoxicillin 875 mg-potassiu m clavulanate 125 mg tablet TAKE 1 TABLET BY MOUTH TWICE A DAY FOR 7 DAYS 06/07 completed Not Available Not Available Not Available neomycin-po lymyxin-hyd rocort 3.5 mg-10,000 unit/mL-1 % ear drops,susp INSTILL 2 DROPS INTO AFFECTED EAR 4 TIMES A DAY 06/07 completed Not Available Not Available Not Available Nexplanon 68 mg subdermal implant Inject by subcutane ous route. active Not Available Not Available No t Available Vitals Date Recorded Body height Body mass index (BMI) Body weight Body temperature Heart rate Systolic blood pressure Diastolic blood pressure Provider Name and Address Organization Details Last Updated DateTime 5 162.56 cm 53.7 kg/m2 662406. 41 g 97.4 [degF] 72 /min 158 mm[Hg] 113 mm[Hg] Neha Leavitt MA [facility] 5 11:25:46 Date Recorded Body height Body mass index (BMI) Body weight Body temperature Heart rate Systolic blood pressure Diastolic blood pressure Provider Name and Address Organization Details Last Updated DateTime 5 162.56 cm 54.8 kg/m2 383984. 97 g 97.6 [degF] 77 /min 159 mm[Hg] 98 mm[Hg] Neha Leavitt [place] - [facility] 5 11:34:01 Date Recorded Body height Body mass index (BMI) Body weight Body temperature Heart rate Oxygen saturation Oxygen saturation in Arterial blood by Pulse oximetry Systolic blood pressure Diastolic blood pressure Provider Name and Address Organization Details Last Updated DateTime 5 162.56 cm 54.1 kg/m2 275149. 6 g 97.8 [degF] 85 /min 96 % 96 % 125 mm[Hg] 88 mm[Hg] Cherie Fernandez [place] [facility] [place] 16:38:03 Social History Question Answer Notes LastModified by Organizat ion Details LastModified Time Tobacco Smoking Status Former Smoker Neha MOOSE Leavitt null, [place] [facility] [place] 05/10/2024 11:23:49 What Was The Date Of Your Most Recent Tobacco Screening? 05/10/2024 Information not available 05/10/2024 Sex: Unknown Functional Status Question Answer Note LastModified by Organization D etails LastModified Time Do you or have you ever used any other forms of tobacco or nicotine? No Information not available 05/10/2024 Mental Status None recorded. Family History Relationship Description Onset Age of this Age Resolved Age Notes LastModified by Organization Details LastModified Time Maternal Grandmother Family history of breast cancer [email or web address] Not available 05/10 13:47:03 Maternal Aunt [email or web address] Not available 05/10 13:47:03 Mother Asthma [email or web address] Not available 05/10/2024 13:48:37 Mother Hypertensive disorder [email or web address] Not available 05/10 13:48:57 Father Hypertensive disorder [email or web address] Not available 05/10 13:48:57 Father Hypercholest erolemia [email or web address] Not available 05/10 13:49:05 Father Kidney disease [email or web address] Not available 05/10 13:49:15 Medical History No medical history recorded. Gynecological HistoryNo gynecological history recorded. Obstetrics History GPAL:G 0 P 0 0 0 0 Immunizations Vaccine Type Date Status Note Provider Nam e and Address Organization Details Recorded Time Influenza, split virus, trivalent, PF 01/05/2015 completed SHY Almonte Attn: Accounting,[address] [facility], [place], [address], [facility] 06/07/2024 12:01:09 Past Encounters Encounter ID Performer Location Encounter Start Date Encounter Closed Date Diagnosis/Indication Diagnosis SNOMED-CT Code Diagnosis ICD10 Code Diagnosis Note [id number] MD Jose Madera (S[facility] 104) [address] [place] [address] 05/10/2024 11:15:44 05/11/2024 12:30:16 Hypothyroidism 69073115 E03.9 -restart levothyrox ine at previous dose-take med on empty stomach in AM, wait 30 min before any other food/drink Diabetes m ellitus screening 409253837 Z13.1 -elevated BMI-hx of gest DM Hyperlipid emia screening 214242790 Z13.220 Essential hypertension 75522821 I10 BP Goal: {{Less than 140/90* Le ss than 150/90}}BP Controlled : {{yes no*} } initiate amlodipine , check labsHealth y Weight: {{4'10= 91-118 lbs 4'11= 94-123 lbs 5'= 97-127 lbs 5'1= 100-131 lbs 5'2= 104-135 5' 3= 107-140 lbs 5'4= 110-144 lbs* 5'5= 115-149 lbs 5'6= 118-154 lbs 5'7= 121-158 lbs 5'8= 125-163 lbs 5'9= 128-168 lbs 5'10= 132-173 lbs 5'11= 136-178 lbs 6'= 140-183 lbs 6'1= 144-188 lbs 6'2= 148-193 lbs 6'3= 152-199 lbs 6'4= 156-204 lbs}}Discu ssed: Low sodium balanced diet, moderate exercise at least 3-4 times per week for an average of 40 minutes, limiting alcohol to 1 drink per day (F) or 2 drinks per day (M), and smoking cessation if currently smoking.Ne xt Visit: {{1* 2 3 4 5 6 7 8 9 10 11 12} }{{week(s) month(s)* }} Screening mammography 24 675050 Z12.31 + family hxover 40, highly recommend starting screening Morbid obesity 307689160 E66.01 BMI 53.7 Acute righ t otitis media 649999627 H66.91 -if not getting better can refer to ENT-will consider omnicef if no relief with augmentin [id number] MD Jose Madera ([facility] 104) [address] [place] [address] 06/07/2024 11:27:16 06/22/2024 12:23:06 Hypothyroidism 83520183 E03.9 -restart levothyrox ine at previous dose-take med on empty stomach in AM, wait 30 min before any other food/drink Chronic otitis media 211 49192 H65.21 -refer to ENT with perforated TM Snoring 49918257 R06.83 -needs sleep med referral for sleep study to r/o NAGA Essential hypertension 37600285 I10 BP Goal: {{Less than 140/90* Le ss than 150/90}}BP Controlled : {{yes no*} } start lisinopril Healthy Weight: {{4'10= 91-118 lbs 4'11= 94-123 lbs 5'= 97-127 lbs 5'1= 100-131 lbs 5'2= 104-135 5' 3= 107-140 lbs 5'4= 110-144 lbs* 5'5= 115-149 lbs 5'6= 118-154 lbs 5'7= 121-158 lbs 5'8= 125-163 lbs 5'9= 128-168 lbs 5'10= 132-173 lbs 5'11= 136-178 lbs 6'= 140-183 lbs 6'1= 144-188 lbs 6'2= 148-193 lbs 6'3= 152-199 lbs 6'4= 156-204 lbs}}Discu ssed: Low sodium balanced diet, moderate exercise at least 3-4 times per week for an average of 40 minutes, limiting alcohol to 1 drink per day (F) or 2 drinks per day (M), and smoking cessation if currently smoking.Ne Visit: {{1* 2 3 4 5 6 7 8 9 10 11 12} }{{week(s) month(s)* }} [id number] MD Inocencia Madera FP (SER[address]) [address] [place] [address] 07/09/2024 16:25:40 07/20/2024 11:05:11 Essential hypertension [id number] BP Goal: {{Less than 140/90* Le ss than 150/90}}BP Controlled : {{yes* no} }on contracept ionHealthy Weight: {{4'10= 91-118 lbs 4'11= 94-123 lbs 5'= 97-127 lbs 5'1= 100-131 lbs 5'2= 104-135 5' 3= 107-140 lbs 5'4= 110-144 lbs* 5'5= 115-149 lbs 5'6= 118-154 lbs 5'7= 121-158 lbs 5'8= 125-163 lbs 5'9= 128-168 lbs 5'10= 132-173 lbs 5'11= 136-178 lbs 6'= 140-183 lbs 6'1= 144-188 lbs 6'2= 148-193 lbs 6'3= 152-199 lbs 6'4= 156-204 lbs}}Discu ssed: Low sodium balanced diet, moderate exercise at least 3-4 times per week for an average of 40 minutes, limiting alcohol to 1 drink per day (F) or 2 drinks per day (M), and smoking cessation if currently smoking.Ne xt Visit: {{1 2 3* 4 5 6 7 8 9 10 11 12} }{{week(s) month(s)* }} Health Concerns Section Related Observation LastModified by Organization Detai ls LastModified Time None Recorded Concern Status LastModified by Organization Details LastModified Time None Recorded Advance Directives Directive None Recorded Payers Encounter Date Sequence Insurance Name Policy Number Policy Ortega Covered Member ID Ortega Member ID Guarantor Name 05/10/2024 1 [facility] [id number] Mary Solitario [id number] Mary Solitario 06/07/2024 1 [facility] [id number] Mary Solitario [id number] Mary Solitario 07/09/2024 1 [facility] [id number] Mary Solitario [id number] Mary Solitario Notes Date Note Type Note Provider Name and Address Organization Details Recorded Time 05/10/2024 text/html Mary is here t [place] to [facility] care She was recently seen in for right ear pain. She is taking Augmentin and using drops. She feels like the ear is clogged. Has intermittent dizziness. Does feel like it drains when she blows her nose but then clogs again. She has a hx of PCOS. She was treated in the past with metformin but did not see much change. 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 Current has a nexplanon but plans to convert to oral contraception. She had gestational diabetes but sugars returned to normal . Reports elevated blood pressure recently, as high as 180 systolic. She denies any headaches, chest pain or shortness of breath. Also has a hx of hypothyroidism but has been off meds due to loss of insurance. Yovany Becerra, ALFONSO-C [id number]|2024-07-27 08:43:00|2024-07-27 08:42:00|XMS_ITS|BKG DAEMON|External Medical Summaries|[id number]|" Encounter Summary Created on: July 27, 2024 Mary Solitario : 1980 Sex: Female Author Organization [facility] Address [address] [place] [address] Care Team Providers Care Instrumental Teacher Name Role Phone Corinna Arroyo MD Primary Care Provider [phone] Reason for Visit * Reason Comments Medication Refill Encounter Details Date Type Department Care Team (Late st Contact Info) Description 11/03/2017 Refill [facility] Endocrinology [address] [place] [address] Leonor Mora MD [address] [place] [address] Social History Tobacco Use Types Packs/Day Years Used Date Smoking Tobacco: Former Cigarettes Q uit: 03/16/2007 Smokeless Tobacco: Never Alcohol Use Standard Drinks/Week Comments No 0 (1 standard drink = 0.6 oz pur e alcohol) Comments No Sex and Gender Information Value Date Recorded Sex Assigned at Not on file 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 [address] [place] [address] PCP - General 08/31/07 documented as of this encounter "
--- OUTSIDE RECORDS SUMMARY | 2024-07-27 08:43 | XMS_ITS | Encounter Summary ---
Author Organization [facility] Address 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 ADDITIONAL INFORMATION The quantification range of this assay is 15 to 100,000,000 IU/mL (1.18 log to 8.00 log IU/mL). Testing was performed using the chris HCV test ([employer] with the chris [employer] System. Test Performed by: [facility] [address] [place] [address] Blood Collection / Unknown 06/27/2017 3:50 PM CDT 06/27/2017 3:51 PM CDT Ryan Mccall MD CHEMISTRY ORDERABLES Final R esult [facility] documented in this encounter Visit Diagnoses Diagnosis Contact with and (suspected) exposure to potentially hazardous body fluids (CODE) documented in this encounter Care Teams Sales & Service Associate Relationship Specialty Start Date End Date Corinna Arroyo MD [address] [place] [address] PCP - General 08/31/07 documented as of this encounter
--- OUTSIDE RECORDS SUMMARY | 2024-07-27 08:43 | XMS_ITS | Encounter Summary ---
Author Organization [facility] Address [address] [place] [address] Care Team Providers Care Program Clinician Name Role Phone Corinna Arroyo MD Primary Care Provider [phone] Encounter Details Date Type Department Care Team (Latest Contact Info) Description 10/03/2007 Outpatient Historical [facility], [address] Tasneem Marshall MD [address] [facility] [address] [place] [address] Routine Gynecological Examination Social History Tobacco Use Types Packs/Day Years Used Date Smoking Tobacco: Never Assessed Comments No Sex and Gender Information Value Date Recorded Sex Assigned at Not on file Legal 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 Gender Identity Not on file Sexual Orientation Not on file documented as of this encounter Plan of Treatment Not on file documented as of this encounter Procedures Procedure Name Priority Date/Time Associated Diagnosis Comments CERV/VAG CYTOPATH, SUREPATH W/RFLX HPV Routine 10/02/2007 11:34 AM CDT documented in this encounter Results * CERV/VAG CYTOPATH, SUREPATH W/RFLX HPV (10/02/2007 11:34 AM CDT) SOURCE Cervix, Endocervix S [facility] LAST MENSTRUAL PERIOD 07-13-07 [facility] CYTOTECHNOLOGI ST: SEUN CASE(ASCP) [facility] Comment: Lab test performed by: [facility] [address] [place] [address] BEV SRIVASTAVA MD REPORT STATUS FINAL [facility] ADEQUACY: Satisfactory for evaluation. Endocervical/trans formation zone component present. [facility] CLINICAL INFORMATION Information not provided [facility] PAP INTERP Negative for intraepithelial lesion or malignancy. [facility] PREV BX: Information not provided [facility] Senior Policy Advisor Pap Comment Based on the cytology result, reflex High Risk HPV DNA testing was not performed. [facility] PREV PAP: Information not provided [facility] Specimen from uterine cervix (specimen) 10/02/2007 11:34 AM CDT 10/03/2007 12:09 PM CDT Tasneem Marshall MD PATHOLOGY/CYTOLOGY ORDERA BLES Final Result [facility] CLIA# [id number] [address] [place] [address] documented in this encounter Visit Diagnoses Diagnosis Routine gynecological examination documented in this encounter Care Teams Program Clinician Relationship Specialty Start Date End Date Corinna Arroyo MD [address] [place] [address] PCP - General 08/31/07 documented as of this encounter
--- OUTSIDE RECORDS SUMMARY | 2024-07-27 08:43 | XMS_ITS | Encounter Summary ---
Author Organization [facility] Address [address] [place] [address] Care Team Providers Care Senior Investigator Name Role Phone Yady Begum MD Primary Care Provider [phone] Encounter Details Date Type Department Care Team (Late st Contact Info) Description 01/24/2008 Outpatient Historical [facility] Yady Begum MD [address] [address] [place] [address] Abdominal Pain, Unspecified Site Social History Tobacco Use Types Packs/Day Years Used Date Smoking Tobacco: Former Cigarettes Q uit: 03/16/2007 Comments No Sex and Gender Information Value Date Recorded Sex Assigned at Not on file Legal Sex Female 5:35 AM HAND SPINNER Gender Identity Not on file Sexual Orientation Not on file documented as of this encounter Plan of Treatment Not on file documented as of this encounter Procedures Procedure Name Priority Date/Time Associated Diagnosis Comments US ABDOMEN LIMITED Timed Study 01/24/2008 7: 27 AM HAND SPINNER documented in this encounter Results * US ABDOMEN LIMITED (01/24/2008 7:27 AM HAND SPINNER) Anatomical Region Laterality Modality Abdomen Other 01/24/2008 7:27 AM HAND SPINNER Narrative 01/24/2008 9:56 AM HAND SPINNER [address] [address] Admit Date: 01/24/2008 MARY GREGORIO Sex: F Admit Prov: YADY BEGUM Date: 1980 Primary Care Prov: MRAIOLA AHUMADA CMRN: [id number] [id number] [facility] Ordering Prov: N/A Accession Number: [id number] Interpretation ULTRASOUND OF THE ABDOMEN, LIMITED, 01/24/2008 [...] Procedure Note Janie Bar MD - 01/24/2008 [facility] [address] [place], [place] [address] Admit Date: 01/24/2008 MARY GREGORIO Sex: F Admit Prov: YADY BEGUM Date: 1980 Primary Care Prov: MARIOLA AHUMADA CMRN: [id number] [id number] IMAGING SERVICES Ordering Prov: N/A Interpretation ULTRASOUND [...] site documented in this encounter Care Teams Senior Investigator Relationship Specialty Start Date End Date Yady Begum MD [address] [address] [place] [address] PCP - General 08/31/07 documented as of this encounter
--- OUTSIDE RECORDS SUMMARY | 2024-07-27 08:43 | XMS_ITS | Encounter Summary ---
Author Organization [email or web address] Address [address] [place] [address] Care Team Providers Care Outside Parts Sales Name Role Phone Yady Begum MD Primary Care Provider [phone] Encounter Details Date Type Department Care Team (Late st Contact Info) Description 02/01/2008 Outpatient Historical [facility] [place], Authorized [place] [id number] [place] [address] Cholecystitis, Unspecified Social History Tobacco Use Types Packs/Day Years Used Date Smoking Tobacco: Former Cigarettes Q uit: 03/16/2007 Comments No Sex and Gender Information Value Date Recorded Sex Assigned at Not on file Legal Sex Female 5:35 AM JAVASCRIPT DEVELOPER Gender Identity Not on file Sexual Orientation Not on file documented as of this encounter Plan of Treatment Not on file documented as of this encounter Procedures Procedure Name Priority Date/Time Associated Diagnosis Comments XR CHOLANGIOGRAM OPERATIVE Routine 02/02/2008 9:00 AM JAVASCRIPT DEVELOPER POC , URINE Routine 02/02/2008 8:00 AM JAVASCRIPT DEVELOPER CBC WITH DIFFERENTIAL Stat 02/01/2008 10:25 PM JAVASCRIPT DEVELOPER LIPASE Stat 02/01/2008 10:25 PM JAVASCRIPT DEVELOPER AMYLASE Stat 02/01/2008 10:25 PM JAVASCRIPT DEVELOPER COMPREHENSIVE METABOLIC PANEL Stat 02/01/2008 10:25 PM JAVASCRIPT DEVELOPER documented in this encounter Results * XR CHOLANGIOGRAM OPERATIVE (02/02/2008 9:00 AM JAVASCRIPT DEVELOPER) Anatomical Region Laterality Modality Abdomen Other 02/02/2008 9:00 AM JAVASCRIPT DEVELOPER Narrative 02/05/2008 10:44 AM JAVASCRIPT DEVELOPER [facility] [address] [place], [place] [address] Admit Date: 02/02/2008 GABINO GREGORIO Sex: F Admit Prov: RAEGAN OHARA Date: 1980 Primary [facility] CMRN: [id number] Room: [place] [address] SSN: [id number] IMAGING SERVICES Ordering Prov: N/A Accession Number: [id number] Interpretation OPERATIVE CHOLANGIOGRAM 02/02/2008 Clinical history: Cholecystitis, [...] Procedure Note Mannie Campbell MD - 02/05/2008 [facility] [address] [place], [place] [address] Admit Date: 02/02/2008 GABINO GREGORIO Sex: F Admit Prov: RAEGAN OHARA Date: 1980 Primary Care Prov: YADY BEGUM CMRN: [id number] Room: [place] [address] SSN: [id number] IMAGING SERVICES Ordering Prov: N/A Interpretation OPERATIVE [...] * POC , URINE (02/02/2008 8:00 AM JAVASCRIPT DEVELOPER) , URINE POC Negative Negative [facility] Urine specimen (specimen) 02/02/2008 8:00 AM JAVASCRIPT DEVELOPER 02/02/2008 8:00 AM JAVASCRIPT DEVELOPER us Raegan Ohara MD POINT OF CARE TESTING Final Re sult Performing Organization Address [facility] de Phone Number INTERFACE SYSTEM Refer to clinic/hospital department [facility] CLIA# [id number] [address] [place] [address] * LIPASE (02/01/2008 10:25 PM JAVASCRIPT DEVELOPER) LIPASE 32 13 - 60 U/L [facility] Blood specimen (specimen) 02/01/2008 10:25 PM JAVASCRIPT DEVELOPER 02/01/2008 11:35 PM JAVASCRIPT DEVELOPER Parag Greenberg MD CHEMISTRY ORDERABLES Final Resul t Performing Organization Address [facility] de Phone Number INTERFACE SYSTEM Refer to clinic/hospital department [facility] CLIA# [id number] [address] [place] [address] * (ABNORMAL) COMPREHENSIVE METABOLIC PANEL (02/01/2008 10:25 PM JAVASCRIPT DEVELOPER) CREATININE 0.90 0.51 - 0.95 mg/dL [facility] SODIUM 140 135 - 145 mmol/L [facility] ALT 93(H) 0 - 31 U/L [facility] ALKALINE PHOSPHATASE 52 35 - 104 U/L [facility] BILIRUBIN TOTAL 0.6 0.2 - 1.0 mg/dL [facility] CO2 26 22 - 30 mmol/L [facility] TOTAL PROTEIN 8.0 6.3 - 8.6 g/dL [facility] POTASSIUM 3.8 3.5 - 4.9 mmol/L [facility] GLUCOSE 115(H) 65 - 99 mg/dL [facility] AST 91(H) 12 - 32 U/L [facility] BUN 13 6 - 20 mg/dL [facility] CALCIUM 9.1 8.6 - 10.2 mg/dL [facility] CHLORIDE 102 96 - 108 mmol/L [facility] ALBUMIN 5.0(H) 3.4 - 4.8 g/dL [facility] GFR, >60 >=60 mL/min/1. 7 sq meter [facility] GFR >60 >=60 mL/min/1. 7 sq meter [facility] Comment: Modification of Diet in Renal Disease (MDRD) study formula. Estimated GFR rate interpretative information for both Americans and non- Americans is available on the [facility] Intranet at: [email or web address] Select: Lab Policies and Procedures Select: Reference Ranges - GFR Blood specimen (specimen) 02/01/2008 10:25 PM JAVASCRIPT DEVELOPER 02/01/2008 11:35 PM JAVASCRIPT DEVELOPER us Parag Greenberg MD CHEMISTRY ORDERABLES Edited INTERFACE SYSTEM Refer to clinic/hospital department [facility] CLIA# [id number] [address] [place], [place] [address] * CBC WITH DIFFERENTIAL (02/01/2008 10:25 PM JAVASCRIPT DEVELOPER) HEMATOCRIT 41.2 35.5 - 44.0 % [facility] RDW-STDEV 42.4 37.1 - 48.7 fL [facility] RBC 4.56 3.90 - 4.90 M/uL [facility] MCHC 33.5 31.5 - 35.5 % [facility] MCV 90.4 82.0 - 99.0 fL [facility] PLATELETS 253 140 - 350 K/uL [facility] HEMOGLOBIN 13.8 11.8 - 14.8 g/dL [facility] RDW 13.0 11.5 - 14.5 % [facility] WBC 9.3 4.0 - 9.8 K/uL [facility] MCH 30.3 27.2 - 32.6 pg [facility] MPV 11.4 9.3 - 12.4 fL [facility] BASOPHILS 0 0 - 2 % [facility] BASOPHILS ABSOLUTE 0.02 0.00 - 0.20 K/uL [facility] MONOCYTES 7 3 - 13 % [facility] MONOCYTE ABSOLUTE 0.68 0.10 - 1.30 K/uL [facility] NEUTROPHILS 66 45 - 70 % [facility] NEUTROPHIL ABSOLUTE 6.20 1.90 - 7.00 K/uL [facility] EOSINOPHILS 2 0 - 7 % [facility] EOSINOPHIL ABSOLUTE 0.19 0.00 - 0.70 K/uL [facility] LYMPHOCYTES 24 16 - 45 % [facility] LYMPHOCYTE ABSOLUTE 2.25 0.70 - 4.50 K/uL [facility] Blood specimen (specimen) 02/01/2008 10:25 PM JAVASCRIPT DEVELOPER 02/01/2008 11:35 PM JAVASCRIPT DEVELOPER Parag Greenberg MD HEMATOLOGY ORDERABLES Edited Performing Organization Address [facility] de Phone Number INTERFACE SYSTEM Refer to clinic/hospital department [facility] CLIA# [id number] [address] [place] [address] * (ABNORMAL) AMYLASE (02/01/2008 10:25 PM JAVASCRIPT DEVELOPER) AMYLASE 258(H) 28 - 100 U/L [facility] Blood specimen (specimen) 02/01/2008 10:25 PM JAVASCRIPT DEVELOPER 02/01/2008 11:35 PM JAVASCRIPT DEVELOPER Parag Greenberg MD CHEMISTRY ORDERABLES Final Resul t Performing Organization Address [facility] Phone Number INTERFACE SYSTEM Refer to clinic/hospital department [facility] CLIA# [id number] [address] [place] [address] documented in this encounter Visit Diagnoses Diagnosis Cholecystitis, unspecified documented in this encounter Care Teams Outside Parts Sales Relationship Specialty Start Date End Date Yady Begum MD [address] [place] [address] PCP - General 08/31/07 documented as of this encounter
--- OUTSIDE RECORDS SUMMARY | 2024-07-27 08:43 | XMS_ITS | Continuity of Care Document ---
Author Organization [facility] Address [address] [place] [address] Phone Care Team Providers Care Costume Draper Name Role Phone Albert Borrego MD Unavailable Unavailable Allergies, Adverse Reactions, Alerts Substance Reaction Status Criticality No Known Allergies Active No Inform ation Medications Medication Instructions Dosage Effective Dates (start - stop) Status Comments MELOXICAM (unknown strength) Not Available - Active VITAMIN B-12 (unknown strength) Not Available - Active Mononessa (28) 0.25 mg-35 mcg tablet - Active SINGULAIR (unknown strength) Not Available - Active levothyroxine 88 mcg tablet - Active Vitamin D2 50,000 unit capsule - Active CINNAMON (unknown strength) Not Available - Active FISH OIL (unknown strength) Not Available - Active Procedures Procedure Date OFFICE/OUTPATIENT VISIT [facility] Advance Directives Directive Yes / No Effective Date File Name No Information Encounters Encounter Description Practice Location Reason(s) For Visit Diagnoses Date Provider Providers Copied on Encounter OFFICE/OUTPA TIENT VISIT [facility], [address] [place], [place] [address], [place], [address], [phone] [facility] Follow Up of l knee pain (chief complaint) Patellar malalignment syndromeChondro malacia of patella 4 Salima Price. [address] [place] [address], [id number] . tel: [phone] Referring Provider: Ciar[address] Gu[address], [place], [address]. tel:[phone] Family History Family Member Type Diagnosis Age At Onset No Information Payers Payer name Insurance type Covered green party ID Authoriza tion(s) No Information Social [...]
--- OUTSIDE RECORDS SUMMARY | 2024-07-27 08:43 | XMS_ITS | Clinical Summary ---
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 Gender Identity Not on file Sexual Orientation Not on file Last Filed Vital Signs Vital Sign Reading Time Taken Comments Blood Pressure 117/82 03/24/2021 9:25 AM ICE CREAM SERVER Pulse 80 10/02/2018 10:05 AM CDT Temperature 36.7 C (98 F) 06/27/2017 8:30 AM CDT Respiratory Rate 18 06/27/2017 8:30 AM CDT Oxygen Saturation 98% 06/26/2017 9:30 PM CDT Inhaled Oxygen Concentration - - Weight 133.8 kg (295 lb) 03/24/2021 9:25 AM ICE CREAM SERVER Height 162.6 cm (5' 4 ) 03/24/2021 9:25 AM ICE CREAM SERVER Body Mass Index 50.64 03/24/2021 9:25 AM ICE CREAM SERVER Plan of Treatment Health Maintenance Due Date [...] 5.7(H) <5.7 % 10/07/2018 4:[address] [facility] EST. AVG GLUCOSE, A1C 117 mg/dL 10/07/2018 4:[address] [facility] Blood Venipuncture / Unknown 10/07/2018 11:06 AM CDT 10/07/2018 11:[address] [facility] [employer] [facility] - 10/07/2018 4:45 PM CDT HGB A1C INTERPRETATION NORMAL: <5.7% PRE-DIABETES: 5.7 - 6.4% DIABETES: 6.5% OR GREATER Corinna Arroyo MD CHEMISTRY ORDERABLES Final R esult [facility] [employer] [facility] CLIA# [id number] [address] [place] [address] * CERV/VAG CYTO AGE BASED SCREEN PAP (05/22/2018 9:05 AM CDT) COMMENT (PAP): SEE COMMENT 7:50 AM CDT [facility] Comment: This order for age-based cervical cancer and STI screening follows ACOG guidelines(PB 168, 140, YFD552). See individual assays for performing site location. [...] 05/29/2018 7:50 AM CDT [facility] DIRECTOR WEIGHTS AND MEASURES: SEE COMMENT 2018 7:50 AM CDT [facility] Comment: MXL, CT(ASCP) CT screening location: [place] [address] [address] [place] [place] [address] REVIEW DIRECTOR WEIGHTS AND MEASURES: SEE COMMENT 05/29/2018 7:50 AM CDT [facility] Comment: AMW, CT(ASCP) CT screening location: [place] [address] [address] [place] [address] EXPLANATORY NOTE SEE COMMENT 019 7:50 AM [...] was performed using the APTIMA HPV Assay ([employer] This assay detects E6/E7 viral messenger RNA (mRNA) from 14 high-risk HPV types (16,18,31,33,35,39,45,51,52,56,58,59,66,68). The analytical performance characteristics of this assay have been determined by [employer]. The modifications have not been cleared or approved by the FDA. This assay has been validated pursuant to the CLIA regulations and is used for clinical purposes. Genital SWAB OF ENDOCERVIX / Unknown Collection / Unknown 05/22/2018 9:05 AM CDT 05/22/2018 10:49 AM CDT Narrative [facility] - 05/29/2018 7:50 AM CDT Performing Organization Information: Site ID: [place] Name: [facility] Address: [address] [place] [address] [place] [address] Director: Sanchez Koehler D.O., MPH Site ID: [place] [facility] Address: [address] [address] [place] [address] Director: Deangelo Valdivia june Vishal DEWEY PATHOLOGY/CYTOLOGY ORDERABLES Final Result [facility] [phone] from Last 3 Months or Most Recently Relevant to Health Maintenance Insurance ADMINISTRATIVE CONCEPTS LBP Advance Directives For more information, please contact: [phone] * Full Code (Latest Code Status on File) Date Activated Date Inactivated Comments 06/25/2017 6:02 AM 06/27/2017 1:36 PM * Full Code Date Activated Date Inactivated Comments 06/24/2017 10:03 AM 06/25/2017 2:21 AM * Full Code Date Activated Date Inactivated Comments 06/24/2017 9:29 AM 06/24/2017 10:03 AM Care Teams Prefitter Doors Relationship Specialty Start Date End Date Corinna Arroyo MD [address] [place] [address] PCP - General 08/31/07
--- OUTSIDE RECORDS SUMMARY | 2024-07-27 08:43 | XMS_ITS | Encounter Summary ---
Author Organization [facility] Address [address] [place] [address] Care Team Providers Care Chimney Builder Brick Name Role Phone Corinna Arroyo MD Primary Care Provider [phone] Encounter Details Date Type Department Care Team (Late st Contact Info) Description 01/26/2008 Outpatient Historical [facility] [place] [address] [place] [address] Cholelithiasis NOS Social History Tobacco Use Types Packs/Day Years Used Date Smoking Tobacco: Former Cigarettes Q uit: 03/16/2007 Comments No Sex and Gender Information Value Date Recorded Sex Assigned at Not on file Legal Sex Female 5:35 AM HOLDER PILE DRIVING Gender Identity Not on file Sexual Orientation Not on file documented as of this encounter Plan of Treatment Not on file documented as of this encounter Procedures Procedure Name Priority Date/Time Associated Diagnosis Comments PATHOLOGY Routine 02/02/2008 10:18 AM HOLDER PILE DRIVING documented in this encounter Results * PATHOLOGY (02/02/2008 10:18 AM HOLDER PILE DRIVING) FINAL REPORT [facility] [address] [place], [place] [address] Patient: MARY GREGORIO : 1980 Procedure Date: 02/02/2008 Accession Date: 02/02/2008 Case No: [id number] Ordering Dr: ANABELLA OHARA Case types AW, BW, FW, NW and SH are performed by [facility], [place], [place] SURGICAL PATHOLOGY & NON-GYNECOLOGIC CYTOPATHOLOGY REPORT [...] 0.2 cm. The cystic duct margin and member services representative sections of gallbladder are submitted in block A1. [facility]/SK 02.02.2008 05:11 pm Microscopic: The slide is labeled [id number] and Mary Gregorio. Histologic sections of the gallbladder mucosa reveal chronic inflammation. There are collections of foamy macrophages present in the glandular villi, consistent with cholesterolosis. There is no evidence of malignancy. GL/GDH 02.05.2008 02:45 pm Staging Form: No. ELECTRONIC SIGNATURE FOR ALONZO CAMPOS M.D.- 02/05/08 04:23 pm INTERFACE SYSTEM 02/02/2008 10:1 8 AM HOLDER PILE DRIVING Anabella Ohara MD PATHOLOGY/CYTOLOGY ORDERABLES Final Result INTERFACE SYSTEM Refer to clinic/hospital department documented in this encounter Visit Diagnoses Diagnosis Calculus of gallbladder without mention of cholecystitis or obstruction documented in this encounter Care Teams Chimney Builder Brick Relationship Specialty Start Date End Date Corinna Arroyo MD [address] [place] [address] PCP - General 08/31/07 documented as of this encounter
== END 2024-07-27 08:36 | disposition home or self-care (01) ==
LOC: ANHAUDIO 08:35
PROVIDERS: PCP Nurse Practitioner Family; Visit Provider Otolaryngology
DX: H90.3 Sensorineural hearing loss, bilateral (principal)
CPT/HCPCS: 92557; 92567

== ENCOUNTER 2024-08-11 07:41 | Outpatient (CLI) | payer OTHER, SELFPAY ==
--- NOTE | ~2024-08-11 | MR_ITS ---
MRI of the brain Clinical History: Ear infection, hearing loss Technique: Axial and sagittal T1-weighted images were acquired. These were followed by axial T2-weigh yasmin, diffusion weighted, gradient, and FLAIR images. Coronal and axial thin cut T1-weighted and T2-we ighted images were acquired through the internal auditory canals. Following intravenous administratio n of 20 cc MultiHance gadolinium, T1-weighted fat-sat imaging was performed through the brain in the axial and coronal planes. Thin cut T1-weighted postcontrast imaging was also performed through the in ternal auditory canals and the axial and coronal planes. Findings: There is no abnormal signal in the brain parenchyma. No acute infarct, intracranial hemorrh age or mass lesion seen. Ventricles and subarachnoid spaces are unremarkable. Orbits are unremarkable. Paranasal sinuses are c lear. There are bilateral mastoid effusions. Major intracranial flow voids appear intact. Sagittal midline structures are intact. No abnormal mass lesion appreciated at the internal auditory canals or cerebellopontine angle regions . No abnormal postcontrast enhancement identified. IMPRESSION: Bilateral mastoid effusions, otherwise unremarkable exam. Reviewed, dictated and finalized at location .
--- OUTSIDE RECORDS SUMMARY | 2024-08-11 07:50 | XMS_ITS | Encounter Summary ---
Author Organization [employer] Address [address] [place] [address] Care Team Providers Care Director Hr Communications Name Role Phone Corinna Arroyo MD Primary Care Provider [phone] Encounter Details Date Type Department Care Team (Latest Contact Info) Description 10/03/2007 Outpatient Historical [facility], [address] Tasneem Marshall MD [address] [facility] [address] [place] [address] Routine Gynecological Examination Social History Tobacco Use Types Packs/Day Years Used Date Smoking Tobacco: Never Assessed Comments No Sex and Gender Information Value Date Recorded Sex Assigned at Not on file Legal 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 [address] [place] [address] BEV SRIVASTAVA MD REPORT STATUS FINAL [facility] ADEQUACY: Satisfactory for evaluation. Endocervical/trans formation zone component present. [facility] CLINICAL INFORMATION Information not provided [facility] PAP INTERP Negative for intraepithelial lesion or malignancy. [facility] PREV BX: Information not provided [facility] Lead Portfolio Manager Pap Comment Based on the cytology result, reflex High Risk HPV DNA testing was not performed. [facility] PREV PAP: Information not provided [facility] Specimen from uterine cervix (specimen) 10/02/2007 11:34 AM CDT 10/03/2007 12:09 PM CDT Tasneem Marshall MD PATHOLOGY/CYTOLOGY ORDERA BLES Final Result [facility] CLIA# [id number] [address] [place] [address] documented in this encounter Visit Diagnoses Diagnosis Routine gynecological examination documented in this encounter Care Teams Director Hr Communications Relationship Specialty Start Date End Date Corinna Arroyo MD [address] [place] [address] PCP - General 08/31/07 documented as of this encounter
--- OUTSIDE RECORDS SUMMARY | 2024-08-11 07:50 | XMS_ITS | Encounter Summary ---
Author Organization [employer] Address [address] [place] [address] Care Team Providers Care Social Media Strategist Name Role Phone Yady Begum MD Primary Care Provider [phone] Encounter Details Date Type Department Care Team (Late st Contact Info) Description 02/01/2008 Outpatient Historical [facility] [place], Authorized [place] [address] [address] [place] [address] Cholecystitis, Unspecified Social History Tobacco Use Types Packs/Day Years Used Date Smoking Tobacco: Former Cigarettes Q uit: 03/16/2007 Comments No Sex and Gender Information Value Date Recorded Sex Assigned at Not on file Legal Sex Female 5:35 AM DIABETES NURSE Gender Identity Not on file Sexual Orientation Not on file documented as of this encounter Plan of Treatment Not on file documented as of this encounter Procedures Procedure Name Priority Date/Time Associated Diagnosis Comments XR CHOLANGIOGRAM OPERATIVE Routine 02/02/2008 9:00 AM DIABETES NURSE POC , URINE Routine 02/02/2008 8:00 AM DIABETES NURSE CBC WITH DIFFERENTIAL Stat 02/01/2008 10:25 PM DIABETES NURSE LIPASE Stat 02/01/2008 10:25 PM DIABETES NURSE AMYLASE Stat 02/01/2008 10:25 PM DIABETES NURSE COMPREHENSIVE METABOLIC PANEL Stat 02/01/2008 10:25 PM DIABETES NURSE documented in this encounter Results * XR CHOLANGIOGRAM OPERATIVE (02/02/2008 9:00 AM DIABETES NURSE) Anatomical Region Laterality Modality Abdomen Other 02/02/2008 9:00 AM DIABETES NURSE Narrative 02/05/2008 10:44 AM DIABETES NURSE [facility] [address] [place], [place] [address] Admit Date: 02/02/2008 GABINO GREGORIO Sex: F Admit Prov: RAEGAN OHARA Date: 1980 Primary Care [facility] CMRN: [id number] Room: [place] [address] SSN: [id number] IMAGING SERVICES Ordering Prov: N/A Accession Number: [id number] Interpretation OPERATIVE CHOLANGIOGRAM 02/02/2008 Clinical history: Cholecystitis, [...] Procedure Note Mannie Campbell MD - 02/05/2008 [facility] [address] [place], [place] [address] Admit Date: 02/02/2008 GABINO GREGORIO Sex: F Admit Prov: RAEGAN OHARA Date: 1980 Primary Care Prov: YADY BEGUM CMRN: [id number] Room: [place] [address] SSN: [id number] IMAGING SERVICES Ordering Prov: N/A Interpretation OPERATIVE [...] * POC , URINE (02/02/2008 8:00 AM DIABETES NURSE) , URINE POC Negative Negative [facility] Urine specimen (specimen) 02/02/2008 8:00 AM DIABETES NURSE 02/02/2008 8:00 AM DIABETES NURSE us Raegan Ohara MD POINT OF CARE TESTING Final Re sult Performing Organization Address [facility] de Phone Number INTERFACE SYSTEM Refer to clinic/hospital department [facility] CLIA# [id number] [address] [place] [address] * LIPASE (02/01/2008 10:25 PM DIABETES NURSE) LIPASE 32 13 - 60 U/L [facility] Blood specimen (specimen) 02/01/2008 10:25 PM DIABETES NURSE 02/01/2008 11:35 PM DIABETES NURSE Parag Greenberg MD CHEMISTRY ORDERABLES Final Resul t Performing Organization Address City/[facility] de Phone Number INTERFACE SYSTEM Refer to clinic/hospital department [facility] CLIA# [id number] [address] [place] [address] * (ABNORMAL) COMPREHENSIVE METABOLIC PANEL (02/01/2008 10:25 PM DIABETES NURSE) CREATININE 0.90 0.51 - 0.95 mg/dL [facility] SODIUM 140 135 - 145 mmol/L [facility] ALT 93(H) 0 - 31 U/L [facility] ALKALINE PHOSPHATASE 52 35 - 104 U/L [facility] BILIRUBIN TOTAL 0.6 0.2 - 1.0 mg/dL [facility] CO2 26 22 - 30 mmol/L [facility] TOTAL PROTEIN 8.0 6.3 - 8.6 g/dL [facility] POTASSIUM 3.8 3.5 - 4.9 mmol/L [facility] GLUCOSE 115(H) 65 - 99 mg/dL [facility] AST 91(H) 12 - 32 U/L [facility] BUN 13 6 - 20 mg/dL [facility] CALCIUM 9.1 8.6 - 10.2 mg/dL [facility] CHLORIDE 102 96 - 108 mmol/L [facility] ALBUMIN 5.0(H) 3.4 - 4.8 g/dL [facility] GFR, >60 >=60 mL/min/1. 7 sq meter [facility] GFR >60 >=60 mL/min/1. 7 sq meter [facility] Comment: Modification of Diet in Renal Disease (MDRD) study formula. Estimated GFR rate interpretative information for both Americans and non- Americans is available on the [facility] Intranet at: [email or web address] Select: Lab Policies and Procedures Select: Reference Ranges - GFR Blood specimen (specimen) 02/01/2008 10:25 PM DIABETES NURSE 02/01/2008 11:35 PM DIABETES NURSE us Parag Greenberg MD CHEMISTRY ORDERABLES Edited INTERFACE SYSTEM Refer to clinic/hospital department [facility] CLIA# [id number] [address] [place], [place] [address] * CBC WITH DIFFERENTIAL (02/01/2008 10:25 PM DIABETES NURSE) HEMATOCRIT 41.2 35.5 - 44.0 % [facility] RDW-STDEV 42.4 37.1 - 48.7 fL [facility] RBC 4.56 3.90 - 4.90 M/uL [facility] MCHC 33.5 31.5 - 35.5 % [facility] MCV 90.4 82.0 - 99.0 fL [facility] PLATELETS 253 140 - 350 K/uL [facility] HEMOGLOBIN 13.8 11.8 - 14.8 g/dL [facility] RDW 13.0 11.5 - 14.5 % [facility] WBC 9.3 4.0 - 9.8 K/uL [facility] MCH 30.3 27.2 - 32.6 pg [facility] MPV 11.4 9.3 - 12.4 fL [facility] BASOPHILS 0 0 - 2 % [facility] BASOPHILS ABSOLUTE 0.02 0.00 - 0.20 K/uL [facility] MONOCYTES 7 3 - 13 % [facility] MONOCYTE ABSOLUTE 0.68 0.10 - 1.30 K/uL [facility] NEUTROPHILS 66 45 - 70 % [facility] NEUTROPHIL ABSOLUTE 6.20 1.90 - 7.00 K/uL [facility] EOSINOPHILS 2 0 - 7 % [facility] EOSINOPHIL ABSOLUTE 0.19 0.00 - 0.70 K/uL [facility] LYMPHOCYTES 24 16 - 45 % [facility] LYMPHOCYTE ABSOLUTE 2.25 0.70 - 4.50 K/uL [facility] Blood specimen (specimen) 02/01/2008 10:25 PM DIABETES NURSE 02/01/2008 11:35 PM DIABETES NURSE Parag Greenberg MD HEMATOLOGY ORDERABLES Edited Performing Organization Address [facility] de Phone Number INTERFACE SYSTEM Refer to clinic/hospital department [facility] CLIA# [id number] [address] [place] [address] * (ABNORMAL) AMYLASE (02/01/2008 10:25 PM DIABETES NURSE) AMYLASE 258(H) 28 - 100 U/L [facility] Blood specimen (specimen) 02/01/2008 10:25 PM DIABETES NURSE 02/01/2008 11:35 PM DIABETES NURSE Parag Greenberg MD CHEMISTRY ORDERABLES Final Resul t Performing Organization Address [facility] Phone Number INTERFACE SYSTEM Refer to clinic/hospital department [facility] CLIA# [id number] [address] [place] [address] documented in this encounter Visit Diagnoses Diagnosis Cholecystitis, unspecified documented in this encounter Care Teams Social Media Strategist Relationship Specialty Start Date End Date Yady Begum MD [address] [place] [address] PCP - General 08/31/07 documented as of this encounter
--- OUTSIDE RECORDS SUMMARY | 2024-08-11 07:50 | XMS_ITS | Encounter Summary ---
Author Organization [facility] Address [address] [place] [address] Care Team Providers Care Ice Scraper Name Role Phone Yady Begum MD Primary Care Provider [phone] Encounter Details Date Type Department Care Team (Late st Contact Info) Description 01/24/2008 Outpatient Historical [facility] Yady Begum MD [address] [facility] [address] [place] [address] Abdominal Pain, Unspecified Site Social History Tobacco Use Types Packs/Day Years Used Date Smoking Tobacco: Former Cigarettes Q uit: 03/16/2007 Comments No Sex and Gender Information Value Date Recorded Sex Assigned at Not on file Legal Sex Female 5:35 AM 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 SYSTEMS DEVELOPER Gender Identity Not on file Sexual Orientation Not on file documented as of this encounter Plan of Treatment Not on file documented as of this encounter Procedures Procedure Name Priority Date/Time Associated Diagnosis Comments US ABDOMEN LIMITED Timed Study 01/24/2008 7: 27 AM EMBEDDED SYSTEMS DEVELOPER documented in this encounter Results * US ABDOMEN LIMITED (01/24/2008 7:27 AM EMBEDDED SYSTEMS DEVELOPER) Anatomical Region Laterality Modality Abdomen Other 01/24/2008 7:27 AM EMBEDDED SYSTEMS DEVELOPER Narrative 01/24/2008 9:56 AM EMBEDDED SYSTEMS DEVELOPER [address] [address] Admit Date: 01/24/2008 MARY GREGORIO Sex: F Admit Prov: YADY BEGUM Date: 1980 Primary Care Prov: MARIOLA AHUMADA CMRN: [id number] [id number] Ordering Prov: N/A Accession Number: [id number] Interpretation ULTRASOUND OF THE ABDOMEN, LIMITED, 01/24/2008 [...] Procedure Note Janie Bar MD - 01/24/2008 [facility] [address] [place], [place] [address] Admit Date: 01/24/2008 MARY GREGORIO Sex: F Admit Prov: YADY BEGUM Date: 1980 Primary Care Prov: MARIOLA AHUMADA CMRN: [id number] [facility] [id number] IM[facility]ING SERVICES Ordering Prov: N/A Interpretation ULTRASOUND [...] site documented in this encounter Care Teams Ice Scraper Relationship Specialty Start Date End Date Yady Begum MD [address] [facility] [address] [place] [address] PCP - General 08/31/07 documented as of this encounter
--- OUTSIDE RECORDS SUMMARY | 2024-08-11 07:50 | XMS_ITS | Data Portability ---
Author Organization JUAN Ochoa LOPEZ Address [address] [place] [address] Care Team Providers Care Hall Porter Name Role Phone YOVANY PAIGE Primary Care Provider Assessment No assessment recorded. Plan of Treatment Reminders Order Date Submit Date Provider Last Modified By Organization Details Last Modified Time Details Appointments ANY 15 2024 09:00A Radha Paige NP-Shad Not available Not available Not available Lab lipid panel, serum 2024 025 [facility], [facility], [place], [address], 05/10/2024 21:40:04 CBC w/ auto diff 2024 025 [facility], [address], [place], [address], 05/10/2024 20:47:58 HbA1c (hemogl obin A1c), blood 2024 025 [facility], [address], [place], [address], 05/17/2024 00:31:28 CMP, serum or plasma 2024 025 [facility], [address] [facility], [address], [place], [address], 05/10/2024 21:40:02 TSH + free T4, serum 2024 025 [facility], [address], [address], [place], [address], 05/24/2024 09:34:34 Referral sleep medicin e referra l - snoring , daytime fatigue - please eval and treat for NAGA 2024 025 [facility], [address] [place], [address], 07/24/2024 14:38:[address] referra l - chronic otitis right ear, please eval and treat 2024 025 [facility] (Ent), [address] [place] [address], [place] [address], [place], [address], 07/26/2024 12:11:15 Procedures None recorde d. Surgeries None recorde d. Imaging MAMMO, screeni ng, digital , bilater al 2024 025 [facility], [address] [place], [address], 06/19/2024 14:44:30 Medication Orders amlodip ine 5 mg tablet 2024 025 [facility] #[id number], [address], [place], [address], 07/09/2024 16:55:25 lisinop ril 10 mg tablet 2024 025 [facility]/Ph[facility]acy #[id number], [address], [place], [address], 07/09/2024 16:55:26 lisinop ril 10 mg tablet 2024 025 [id number], [address], [place], [address], 06/29/2024 13:50:28 amlodip ine 5 mg tablet 2024 025 [id number], [address], [place], [address], 06/07/2024 12:08:51 levothy roxine 150 mcg tablet 2024 025 [id number], [address] [place], [address], 06/07/2024 12:02:06 amlodip ine 5 mg tablet 2024 025 [id number], [address] [place], [address], 06/01/2024 11:38:57 levothy roxine 150 mcg tablet 2024 025 [id number], [address] [place], [address], 06/01/2024 10:37:07 Patient TargetsNo targets recorded. Patient Instructions Encounter Date Encounter Id Patient Instructions Last Modified By Organization Details Last Modified Time 05/10/2024 [id number] A healthy lifestyle: care instructions [email or web address] Not available 05/10/2024 13:49:25 Reason for Referral Director Of Product Marketing Referral fo r Chronic otitis media chronic otitis right ear, please eval and treat Referring Physician: Yovany Paige, Director Corporate Communications, Encounter Date: 06/07/2024 Sleep Medicine Referral for Snoring snoring, daytime fatigue- please eval and treat for NAGA Referring Physician: Yovany Paige Director Corporate Communications, Encounter Date: 06/07/2024 Results Created Date Observation Date Name Description Value Unit Range Abnormal Flag Note LastModifiedBy Organization Detail LastModifiedTime 05/10/1905/10/2024 COMPL ETE BLOOD COUNT AUTO DIFF white blood count 6.0 x10e3 /uL 3.4-10 .8 normal Not Available [facility] (Lab) [address] [place], [address], 05/10/2024 20:47:58 05/10/19 25 05/10/2024 COMPL ETE BLOOD COUNT AUTO DIFF red blood count 4.42 x10e6 /uL 3.77-5 .28 normal Not Available [facility] (Lab) [address], [place], [address], 05/10/2024 20:47:58 05/10/19 25 05/10/2024 COMPL ETE BLOOD COUNT AUTO DIFF hemoglobin 13.8 g/dL 11.1-1 5.9 normal Not Available [facility] (Lab) [address], [place], [address], 05/10/2024 20:47:58 05/10/19 25 05/10/2024 COMPL ETE BLOOD COUNT AUTO DIFF hematocrit 41.1 % 34.0-4 6.6 normal Not Available [facility] (Lab) [address], [place], [address], 05/10/2024 20:47:58 05/10/19 25 05/10/2024 COMPL ETE BLOOD COUNT AUTO DIFF mean corpuscular volume 93 fL 79-97 normal Not Available [facility] (Lab) [address], [place], [address], 05/10/2024 20:47:58 05/10/19 25 05/10/2024 COMPL ETE BLOOD COUNT AUTO DIFF mean corpuscular hemoglobin 31.2 pg 26.6-3 3.0 normal Not Available [facility] (Lab) [address] [place], [address], 05/10/2024 20:47:58 05/10/19 25 05/10/2024 COMPL ETE BLOOD COUNT AUTO DIFF mean corpuscular HGB conc 33.6 g/dL 31.5-3 5.7 normal Not Available [facility] (Lab) [address] [place], [address], 05/10/2024 20:47:58 05/10/19 25 05/10/2024 COMPL ETE BLOOD COUNT AUTO DIFF red cell distribution width 12.4 % 11.5-1 4.5 normal Not Available [facility] (Lab) [address] [facility], [place], [address], 05/10/2024 20:47:58 05/10/19 25 05/10/2024 COMPL ETE BLOOD COUNT AUTO DIFF platelet count 255 x10e3 /uL 150-45 0 normal Not Available [facility] (Lab) [address] [facility], [place], [address], 05/10/2024 20:47:58 05/10/19 25 05/10/2024 COMPL ETE BLOOD COUNT AUTO DIFF mean platelet volume 10.6 fL 8.9-12 .7 normal Not Available [facility] (Lab) [address] [facility], [place], [address], 05/10/2024 20:47:58 05/10/19 25 05/10/2024 COMPL ETE BLOOD COUNT AUTO DIFF immature granulocytes pct auto 0.2 % not estb. Not Available [facility] (Lab) [address] [place], [address], 05/10/2024 20:47:58 05/10/19 25 05/10/2024 COMPL ETE BLOOD COUNT AUTO DIFF neutrophils percent auto 62 % not estb. Not Available [facility] (Lab) [address] [facility], [place], [address], 05/10/2024 20:47:58 05/10/19 25 05/10/2024 COMPL ETE BLOOD COUNT AUTO DIFF lymphocytes percent auto 29 % not estb. Not Available [facility] (Lab) [address] [facility], [place], [address], 05/10/2024 20:47:58 05/10/19 25 05/10/2024 COMPL ETE BLOOD COUNT AUTO DIFF monocytes percent auto 7 % not estb. Not Available [facility] (Lab) [address] [facility], [place], [address], 05/10/2024 20:47:58 05/10/19 25 05/10/2024 COMPL ETE BLOOD COUNT AUTO DIFF eosinophils percent auto 2 % not estb. Not Available [facility] (Lab) [address] [place], [address], 05/10/2024 20:47:58 05/10/19 25 05/10/2024 COMPL ETE BLOOD COUNT AUTO DIFF basophils percent auto 1 % not estb. Not Available [facility] (Lab) [address] [place], [address], 05/10/2024 20:47:58 05/10/19 25 05/10/2024 COMPL ETE BLOOD COUNT AUTO DIFF neutrophils absolute auto 3.8 x10e3 /uL 1.4-7. 0 normal Not Available [facility] (Lab) [address] [facility], [place], [address], 05/10/2024 20:47:58 05/10/19 25 05/10/2024 COMPL ETE BLOOD COUNT AUTO DIFF immature granulocytes abs auto 0.0 x10e3 /uL 0.0-0. 1 normal Not Available [facility] (Lab) [address] [place], [address], 05/10/2024 20:47:58 05/10/19 25 05/10/2024 COMPL ETE BLOOD COUNT AUTO DIFF lymphocytes absolute auto 1.8 x10e3 /uL 0.7-3. 1 normal Not Available [facility] (Lab) [address] [place], [address], 05/10/2024 20:47:58 05/10/19 25 05/10/2024 COMPL ETE BLOOD COUNT AUTO DIFF monocytes absolute auto 0.4 x10e3 /uL 0.1-0. 9 normal Not Available [facility] (Lab) [address] [place], [address], 05/10/2024 20:47:58 05/10/19 25 05/10/2024 COMPL ETE BLOOD COUNT AUTO DIFF eosinophils absolute auto 0.1 x10e3 /uL 0.0-0. 4 normal Not Available [facility] (Lab) [address] [place], [address], 05/10/2024 20:47:58 05/10/19 25 05/10/2024 COMPL ETE BLOOD COUNT AUTO DIFF basophils absolute auto 0.0 x10e3 /uL 0.0-0. 2 normal Not Available [facility] (Lab) [address] [place], [address], 05/10/2024 20:47:58 05/10/19 25 05/10/2024 COMPL ETE BLOOD COUNT AUTO DIFF nucleated red blood cells auto 0 % 0-0 normal Not Available [facility] (Lab) [address] [place], [address], 05/10/2024 20:47:58 05/10/19 25 05/10/2024 THYRO ID STIMU LATIN G HORMO NE thyroid stimulating hormone 8.880 uIU/m L 0.450- 4.500 high Not Available [facility] (Lab) [address] [place], [address], 05/10/2024 21:08:58 05/10/19 25 05/10/2024 COMPR EHENS VALENCIA METAB OLIC PANEL sodium 141 mmol/ L 134-14 4 normal Not Available [facility] (Lab) [address] [place], [address], 05/10/2024 21:40:02 05/10/19 25 05/10/2024 COMPR EHENS VALENCIA METAB OLIC PANEL potassium 4.2 mmol/ L 3.5-5. 2 normal Not Available [facility] (Lab) [address] [place], [address], 05/10/2024 21:40:02 05/10/19 25 05/10/2024 COMPR EHENS VALENCIA METAB OLIC PANEL chloride 105 mmol/ L 96-106 normal Not Available [facility] (Lab) [address] [place], [address], 05/10/2024 21:40:02 05/10/19 25 05/10/2024 COMPR EHENS VALENCIA METAB OLIC PANEL carbon dioxide 26 mmol/ L 20-29 normal Not Available [facility] (Lab) [address] [place], [address], 05/10/2024 21:40:02 05/10/19 25 05/10/2024 COMPR EHENS VALENCIA METAB OLIC PANEL anion gap 14.0 mmol/ L Not Available [facility] (Lab) [address] [place], [address], 05/10/2024 21:40:02 05/10/19 25 05/10/2024 COMPR EHENS VALENCIA METAB OLIC PANEL blood urea nitrogen 11 mg/dL 6-24 normal Not Available [facility] [address] [place], [address], 05/10/2024 21:40:02 05/10/19 25 05/10/2024 COMPR EHENS VALENCIA METAB OLIC PANEL creatinine 0.98 mg/dL 0.76-1 .27 normal Not Available [facility] (Lab) [address] [place], [address], 05/10/2024 21:40:02 05/10/19 25 05/10/2024 COMPR EHENS VALENCIA METAB OLIC PANEL glomerular filtration rate 74 mL/mi n/1 Not Available [facility] (Lab) [address] [place], [address], 05/10/2024 21:40:02 05/10/19 25 05/10/2024 COMPR EHENS VALENCIA METAB OLIC PANEL BUN creatinine ratio 12 9-23 normal Not Available [facility] (Lab) [address] [place], [address], 05/10/2024 21:40:02 05/10/19 25 05/10/2024 COMPR EHENS VALENCIA METAB OLIC PANEL glucose 98 mg/dL 70-99 normal Not Available [facility] (Lab) [address] [place], [address], 05/10/2024 21:40:02 05/10/19 25 05/10/2024 COMPR EHENS VALENCIA METAB OLIC PANEL osmolality calculated 281 275-29 5 normal Not Available [facility] (Lab) [address] [place], [address], 05/10/2024 21:40:02 05/10/19 25 05/10/2024 COMPR EHENS VALENCIA METAB OLIC PANEL calcium 9.0 mg/dL 8.7-10 .2 normal Not Available [facility] (Lab) [address] [place], [address], 05/10/2024 21:40:02 05/10/19 25 05/10/2024 COMPR EHENS VALENCIA METAB OLIC PANEL bilirubin total 0.4 mg/dL 0.0-1. 2 normal Not Available [facility] (Lab) [address] [place], [address], 05/10/2024 21:40:02 05/10/19 25 05/10/2024 COMPR EHENS VALENCIA METAB OLIC PANEL AST aspartate aminotransfe rase 17 IU/L 0-40 normal Not Available [facility]) [address], [place], [address], 05/10/2024 21:40:02 05/10/19 25 05/10/2024 COMPR EHENS VALENCIA METAB OLIC PANEL ALT (alanine aminotransfe rase) 25 IU/L 0-32 normal Not Available [facility] ([facility]) [address] [place], [address], 05/10/2024 21:40:02 05/10/19 25 05/10/2024 COMPR EHENS VALENCIA METAB OLIC PANEL total protein 7.0 g/dL 6.0-8. 5 normal Not Available [facility] (Lab) [address] [place], [address], 05/10/2024 21:40:02 05/10/19 25 05/10/2024 COMPR EHENS VALENCIA METAB OLIC PANEL albumin level 4.6 g/dL 3.9-4. 9 normal Not Available [facility] (Lab) [address] [place], [address], 05/10/2024 21:40:02 05/10/19 25 05/10/2024 COMPR EHENS VALENCIA METAB OLIC PANEL globulin 2.4 g/dL 1.5-4. 5 normal Not Available [facility] (Lab) [address], [place], [address], 05/10/2024 21:40:02 05/10/19 25 05/10/2024 COMPR EHENS VALENCIA METAB OLIC PANEL albumin globulin ratio 2.0 1.2-2. 2 normal Not Available [facility] (Lab) [address], [place], [address], 05/10/2024 21:40:02 05/10/19 25 05/10/2024 COMPR EHENS VALENCIA METAB OLIC PANEL alkaline phosphatase 59 IU/L 44-121 normal Not Available [facility] (Lab) [address], [place], [address], 05/10/2024 21:40:02 05/10/19 25 05/10/2024 LIPID PANEL triglyceride s 123 mg/dL 0-149 normal Not Available [facility] ([facility]) [address], [place], [address], 05/10/2024 21:40:04 05/10/19 25 05/10/2024 LIPID PANEL cholesterol 158 mg/dL 100-19 9 normal Not Available [facility] (Lab) [address] [place], [address], 05/10/2024 21:40:04 05/10/19 25 05/10/2024 LIPID PANEL LDL cholesterol 100 mg/dL 0-99 high Not Available [facility] (Lab) [address] [place], [address], 05/10/2024 21:40:04 05/10/19 25 05/10/2024 LIPID PANEL VLDL cholesterol (calc) 25 mg/dL 5-40 normal Not Available [facility] (Lab) [address] [place], [address], 05/10/2024 21:40:04 05/10/19 25 05/10/2024 LIPID PANEL HDL cholesterol 39 mg/dL 40-999 low Not Available [facility] (Lab) [address] [place], [address], 05/10/2024 21:40:04 05/10/19 25 05/10/2024 LIPID PANEL LDL HDL ratio 2.6 0-3.2 normal Not Available [facility] (Lab) [address] [place], [address], 05/10/2024 21:40:04 05/10/19 25 05/10/2024 LIPID PANEL chol HDL ratio 4.0 mg/dL 0-4.4 normal Not Available [facility] (Lab) [address] [place], [address], 05/10/2024 21:40:04 05/10/19 25 05/12/2024 HEMOG LOBIN A1C hemoglobin A1C 5.9 % 4.8-5. 6 abnormal Predi abete s: 5.7 - 6.4 Diabe adrianna: >6.4 Glyce josefina contr ol for adult s with diabe adrianna: <7.0 Perfo rmed at: 01 - [facility] [address] [place] [address] Lab Direc tor: Taz boland PhD, Phone : [phone] Not Available [facility] (Lab) [address] [place], [address], 05/12/2024 05:13:03 05/10/19 25 05/12/2024 T4,FR EE(DI RECT) T4,free(dire ct) 0.92 NG/dL 0.82-1 .77 Perfo rmed at: 01 - [facility] [address] [facility], [place] [address] Lab Direc tor: Taz boland PhD, Phone : [phone] Not Available [facility] (Lab) [address], [place], [address], 05/12/2024 08:12:23 06/20/19 25 05/25/2024 MAMMO , scree azeb, digit al, bilat eral No observ ation record ed. [facility] [address] [place], [address], 06/21/2024 12:23:03 07/11/19 25 07/09/2024 MAMMO , diagn ostic , digit al, bilat eral No observ ation record ed. [facility] [address] [place], [address], 07/17/2024 09:59:18 Result Notes None recorded. Problems Name Problem SNOMED Code Status Onset Date Resolution Date Notes Provider Name and Address Organization Details Recorded Time Polycystic ovary syndrome 983892962 Active 2024 SHY Almonte Attn: Rubens parisi,[address] [place], [address], [facility] 11:30:37 Hypothyroidism 96886320 Active 2024 SHY Almonte Attn: Rubens parisi,[address] [place], [address], [facility] - [facility] 5 11:30:52 Asthma 492397766 Active 2024 SHY Almonte Attn: Rubens pariis,[address] [place], [address], [facility] - [facility] 13:47:42 Migraine 94270073 Active 2024 SHY Almonte Attn: Rubens parisi,[address] [place], [address], [facility] - [facility] 13:47:49 Essential hypertension 39623878 Active 2024 SHY Almonte Attn: Rubens g,[address] [facility], [place], [address], [place] [facility] 12:08:26 Problem Notes None recorded. Procedures Surgical History Date Name Laterality Status Provider Name and Address Organization Details Recorded Time 03/14/19 08 Cholecystectomy completed SHY Almonte Attn: Accounting, [address] [facility], [place], [address], [facility] - [facility] 05/10/2024 13:48:07 03/14/19 08 Tonsillectomy completed SHY Almonte Attn: Accounting, [address] [facility], [place], [address], [facility] - [facility] 05/10/2024 13:48:16 03/14/18 98 Arthroscopic Surgery completed SHY Almonte Attn: Accounting, [address] [facility], [place], [address], [facility] - [facility] 05/10/2024 13:48:26 Imaging Results None recorded. Procedure Notes None recorded. Medical Equipment None [...] Not Available No t Available amoxicillin 875 mg-potbarbarau m clavulanate 125 mg tablet TAKE 1 TABLET BY MOUTH TWICE A DAY FOR 7 DAYS 03/27 /2025 completed Not Available Not Available Not Available [...] Updated DateTime 5 162.56 cm 53.7 kg/m2 246169. 41 g 97.4 [degF] 72 /min 158 mm[Hg] 113 mm[Hg] Neha Leavitt MA [facility] 5 11:25:46 Date Recorded Body height Body mass index (BMI) Body weight Body temperature Heart rate Systolic blood pressure Diastolic blood pressure Provider Name and Address Organization Details Last Updated DateTime 5 162.56 cm 54.8 kg/m2 325949. 97 g 97.6 [degF] 77 /min 159 mm[Hg] 98 mm[Hg] Neha Leavitt MA [facility] 5 11:34:01 Date Recorded Body height Body mass index (BMI) Body weight Body temperature Heart rate Oxygen saturation Oxygen saturation in Arterial blood by Pulse oximetry Systolic blood pressure Diastolic blood pressure Provider Name and Address Organization Details Last Updated DateTime 5 162.56 cm 54.1 kg/m2 166276. 6 g 97.8 [degF] 85 /min 96 % 96 % 125 mm[Hg] 88 mm[Hg] Cherie Fernandez MA [facility] 5 16:38:03 Social History Question Answer Notes LastModified by Organizat ion Details LastModified Time Tobacco Smoking Status Former Smoker Neha Leavitt MA null, [facility] 05/10/2024 11:23:49 What Was The Date Of [...] Maternal Grandmother Family history of breast cancer [place] [address] Not available 05/10 13:47:03 Maternal Aunt Family history of breast cancer [place] [address] Not available 05/10 13:47:03 Mother Asthma [email or web address] Not available 05/10/2024 13:48:37 Mother Hypertensive disorder [email or web address] Not available 05/10 13:48:57 Father Hypertensive disorder [email or web address] Not available 05/10 13:48:57 Father Hypercholest erolemia [email or web address] Not available 05/10 13:49:05 Father Kidney disease [place] [address] Not available 05/10 13:49:15 Medical History No medical history recorded. Gynecological HistoryNo gynecological history recorded. Obstetrics History GPAL:G 0 P 0 0 0 0 Immunizations Vaccine Type Date Status Note Provider Nam e and Address Organization Details Recorded Time Influenza, split virus, trivalent, PF 01/05/2015 completed SHY Almonte Attn: Accounting,[address] [place], [address], [facility] 06/07/2024 12:01:09 Past Encounters Encounter ID Performer Location Encounter Start Date Encounter Closed Date Diagnosis/Indication Diagnosis SNOMED-CT Code Diagnosis ICD10 Code Diagnosis Note [id number] Renetta Guo MD [facility] FP ([facility] [address]) [address] [place] [address] 05/10/2024 11:15:44 05/11/2024 12:30:16 Hypothyroidism 37859096 E03.9 -restart levothyrox ine at previous dose-take med on empty stomach in AM, wait 30 min before any other food/drink Diabetes m ellitus screening 431994709 Z13.1 -elevated BMI-hx of gest DM Hyperlipid emia screening 998275395 Z13.220 Essential hypertension 10888959 I10 BP Goal: Less than 140/90BP Controlled : no initiate amlodipine , check labsHealth y Weight: 5'4= 110-144 lbsDiscuss ed: Low sodium balanced diet, moderate exercise at least 3-4 times per week for an average of 40 minutes, limiting alcohol to 1 drink per day (F) or 2 drinks per day (M), and smoking cessation if currently smoking.Ne xt Visit: 1month(s) Screening mammography 24 964899 Z12.31 + family hxover 40, highly recommend starting screening Morbid obesity 716042274 E66.01 BMI 53.7 Acute righ t otitis media 083454993 H66.91 -if not getting better can refer to ENT-will consider omnicef if no relief with augmentin [id number] Renetta Guo MD [facility] FP ([facility]) [address] [place] [address] 06/07/2024 11:27:16 06/22/2024 12:23:06 Hypothyroidism 78989593 E03.9 -restart levothyrox ine at previous dose-take med on empty stomach in AM, wait 30 min before any other food/drink Chronic otitis media 211 [address] H65.21 -refer to ENT with perforated TM Snoring 56890167 R06.83 -needs sleep med referral for sleep study to r/o NAGA Essential hypertension 25997569 I10 BP Goal: Less than 140/90BP Controlled : no start lisinopril Healthy Weight: 5'4= 110-144 lbsDiscuss ed: Low sodium balanced diet, moderate exercise at least 3-4 times per week for an average of 40 minutes, limiting alcohol to 1 drink per day (F) or 2 drinks per day (M), and smoking cessation if currently smoking.Ne xt Visit: 1month(s) [id number] MD [facility] ([facility] [address]) [address] [place] [address] 07/09/2024 16:25:40 07/20/2024 11:05:11 Essential hypertension 21217217 I10 BP Goal: Less than 140/90BP Controlled : yeson contracept ionHealthy Weight: 5'4= 110-144 lbsDiscuss ed: Low sodium balanced diet, moderate exercise at least 3-4 times per week for an average of 40 minutes, limiting alcohol to 1 drink per day (F) or 2 drinks per day (M), and smoking cessation if currently smoking.Ne xt Visit: 3month(s) Health Concerns Section Related Observation LastModified by Organization Hi ls LastModified Time None Recorded Concern Status LastModified by Organization Details LastModified Time None Recorded Advance Directives Directive None Recorded Payers Encounter Date Sequence Insurance Name Policy Number Policy Ortega Covered Member ID Ortega Member ID Guarantor Name 05/10/2024 1 [facility] [id number] Mary Solitario [id number] Mary Lonalicja 06/07/2024 1 [facility] [id number] Mary Loness [id number] Mary Solitario 07/09/2024 1 [facility] [id number] Mary Solitario [id number] Mary Solitario Notes Date Note Type Note Provider Name and Address Organization Details Recorded Time 05/10/2024 text/html Mary is here t nataliia to est care She was recently seen in for [...] see much change. She will est with [employer] soon and plans for a hysterectomy later [...] off meds due to loss of insurance. SHY Almonte Attn: Accounting[address] [place], [address], [facility] 05/10/2024 13:50:46 06/07/2024 text/html Hypertension F/UReported bypatient.Associated Symptoms:no dizziness; no lightheadedness; no chest pain; no shortness of breath; no palpitations; no edema; no calf pain with exertion Lifestyle:regular exercise; limiting/avoiding salt Medications:taking medications as directed; no side effects from medication Mary is here today for BP f/u. She feels like her ear is somewhat better but still has trouble with her hearing. SHY Almonte Attn: Accounting,[address] [facility], [place], [address], [facility] 06/21/2024 23:32:33 07/09/2024 text/html Hypertension F/UReported bypatient.Associated Symptoms:no dizziness; no lightheadedness; no chest pain; no shortness of breath; no palpitations; no edema; no calf pain with exertion Lifestyle:regular exercise; limiting/avoiding salt Medications:taking medications as directed; no side effects from medication SHY Almonte Attn: Accounting,[address] [facility], [place], [address], [facility] [place] 07/19/2024 21:29:57 OBGyn Episode No OBEpisode recorded.
--- OUTSIDE RECORDS SUMMARY | 2024-08-11 07:50 | XMS_ITS | Encounter Summary ---
Author Organization [facility] Address 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 Gender Identity Not on file Sexual Orientation Not on file documented as of this encounter Plan of Treatment Not on file documented as of this encounter Procedures Procedure Name Priority Date/Time Associated Diagnosis Comments PATHOLOGY Routine 02/02/2008 10:18 AM FORENSIC SOCIAL WORKER documented in this encounter Results * PATHOLOGY (02/02/2008 10:18 AM FORENSIC SOCIAL WORKER) FINAL REPORT [facility] [address] [place], [place] [address] Patient: MARY GREGORIO : 1980 Procedure Date: 02/02/2008 Accession Date: 02/02/2008 Case No: [id number] Ordering Dr: ANABELLA OHARA Case types AW, BW, FW, NW and SH are performed by [facility], [place], [place] SURGICAL PATHOLOGY & NON-GYNECOLOGIC CYTOPATHOLOGY REPORT [...] 0.2 cm. The cystic duct margin and customer contact representative sections of gallbladder are submitted in block A1. [facility]/SK 02.02.2008 05:11 pm Microscopic: The slide is labeled [id number] and Mary Gregorio. Histologic sections of the gallbladder mucosa reveal chronic inflammation. There are collections of foamy macrophages present in the glandular villi, consistent with cholesterolosis. There is no evidence of malignancy. GL/GDH 02.05.2008 02:45 pm Staging Form: No. ELECTRONIC SIGNATURE FOR ALONZO CAMPOS M.D.- 02/05/08 04:23 pm INTERFACE SYSTEM 02/02/2008 10:1 8 AM FORENSIC SOCIAL WORKER Anabella Ohara MD PATHOLOGY/CYTOLOGY ORDERABLES Final Result INTERFACE SYSTEM Refer to clinic/hospital department documented in this encounter Visit Diagnoses Diagnosis Calculus of gallbladder without mention of cholecystitis or obstruction documented in this encounter Care Teams Shirt Ironer Relationship Specialty Start Date End Date Corinna Arroyo MD [address] [place] [address] PCP - General 08/31/07 documented as of this encounter
--- OUTSIDE RECORDS SUMMARY | 2024-08-11 07:50 | XMS_ITS | Encounter Summary ---
Author Organization [facility] Address [address] [place] [address] Care Team Providers Care Grain Sacker Name Role Phone Corinna Arroyo MD Primary Care Provider [phone] Encounter Details Date Type Department Care Team (Latest Contact Info) Description 08/19/2008 Outpatient Historical [facility], [address] Tasneem Marshall MD [address] [place] [address] Routine Gynecological Examination Social History Tobacco Use Types Packs/Day Years Used Date Smoking Tobacco: Former Cigarettes Q uit: 03/16/2007 Comments No Sex and Gender Information Value Date Recorded Sex Assigned at Not on file 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
--- OUTSIDE RECORDS SUMMARY | 2024-08-11 07:50 | XMS_ITS | Encounter Summary ---
Author Organization [facility] Address [address] [place] [address] Care Team Providers Care Huc Name Role Phone Corinna Arroyo MD Primary Care Provider [phone] Reason for Visit * Reason Comments Medication Refill Encounter Details Date Type Department Care Team (Late st Contact Info) Description 11/03/2017 Refill [facility] Endocrinology [address] [place] [address] Leonor Mora MD [address] [place] [address] Social History Tobacco Use Types Packs/Day Years Used Date Smoking Tobacco: Former Cigarettes Q uit: 03/16/2007 Smokeless Tobacco: Never Alcohol Use Standard Drinks/Week Comments No 0 (1 standard drink = 0.6 oz pur e alcohol) Comments No Sex and Gender Information Value Date Recorded Sex Assigned at Not on file 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
--- OUTSIDE RECORDS SUMMARY | 2024-08-11 07:50 | XMS_ITS | Clinical Summary ---
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 Gender Identity Not on file Sexual Orientation Not on file Last Filed Vital Signs Vital Sign Reading Time Taken Comments Blood Pressure 117/82 03/24/2021 9:25 AM PARTICLE BOARD SUPERVISOR Pulse 80 10/02/2018 10:05 AM CDT Temperature 36.7 C (98 F) 06/27/2017 8:30 AM CDT Respiratory Rate 18 06/27/2017 8:30 AM CDT Oxygen Saturation 98% 06/26/2017 9:30 PM CDT Inhaled Oxygen Concentration - - Weight 133.8 kg (295 lb) 03/24/2021 9:25 AM PARTICLE BOARD SUPERVISOR Height 162.6 cm (5' 4) 03/24/2021 9:25 AM PARTICLE BOARD SUPERVISOR Body Mass Index 50.64 03/24/2021 9:25 AM PARTICLE BOARD SUPERVISOR Plan of Treatment Health Maintenance Due Date [...] 5.7(H) <5.7 % 10/07/2018 4:45 PM CDT [facility] LABORATORY SERVICES [facility] EST. AVG GLUCOSE, A1C 117 mg/dL 10/07/2018 4:45 PM T [facility] LABORATORY [facility] Blood Venipuncture / Unknown 10/07/2018 11:06 AM CDT 10/07/2018 11:06 AM CDT Narrative [facility] DB3 Mobile [facility] - 10/07/2018 4:45 PM CDT HGB A1C INTERPRETATION NORMAL: <5.7% PRE-DIABETES: 5.7 - 6.4% DIABETES: 6.5% OR GREATER Corinna Arroyo MD CHEMISTRY ORDERABLES Final R esult [facility] DB[facility] Mobile [facility] CLIA# [id number] [address] [place] [address] * CERV/VAG CYTO AGE BASED SCREEN PAP (05/22/2018 9:05 AM CDT) COMMENT (PAP): SEE COMMENT 7:50 AM CDT [facility] Comment: This order for age-based cervical cancer and STI screening follows ACOG guidelines(PB 168, 140, RAJ736). See individual assays for performing site location. [...] 05/29/2018 7:50 AM CDT [facility] CONTRACTOR GENERAL BUILDING: SEE COMMENT 2018 7:50 AM CDT [facility] Comment: MXL, CT(ASCP) CT screening location: [facility] [place] [address] [address] [place] [id number] REVIEW CONTRACTOR GENERAL BUILDING: SEE COMMENT 05/29/2018 7:50 AM CDT [facility] Comment: AMW, CT(ASCP) CT screening location: [place] [address] [address] [place] [address] EXPLANATORY NOTE SEE COMMENT 019 7:50 AM [...] was performed using the APTIMA HPV Assay ([employer] This assay detects E6/E7 viral messenger RNA (mRNA) from 14 high-risk HPV types (16,18,31,33,35,39,45,51,52,56,58,59,66,68). The analytical performance characteristics of this assay have been determined by [facility]. The modifications have not been cleared or approved by the FDA. This assay has been validated pursuant to the CLIA regulations and is used for clinical purposes. Genital SWAB OF ENDOCERVIX / Unknown Collection / Unknown 05/22/2018 9:05 AM CDT 05/22/2018 10:49 AM CDT Narrative [facility] - 05/29/2018 7:50 AM CDT Performing Organization Information: Site ID: [id number] Name: [facility] Address: [address] [place] [address] [place] [address] Director: Sanchez Koehler D.O., MPH Site ID: [id number] [facility] Address: [address] [address] [place] [phone] Director: Deangelo Valdivia june Vishal DEWEY PATHOLOGY/CYTOLOGY ORDERABLES Final Result [facility] [phone] from Last 3 Months or Most Recently Relevant to Health Maintenance Insurance ADMINISTRATIVE CONCEPTS LBP Advance Directives For more information, please contact: [phone] * Full Code (Latest Code Status on File) Date Activated Date Inactivated Comments 06/25/2017 6:02 AM 06/27/2017 1:36 PM * Full Code Date Activated Date Inactivated Comments 06/24/2017 10:03 AM 06/25/2017 2:21 AM * Full Code Date Activated Date Inactivated Comments 06/24/2017 9:29 AM 06/24/2017 10:03 AM Care Teams Nut Dehydrator Operator Relationship Specialty Start Date End Date Corinna Arroyo MD [address] [place] [address] PCP - General 08/31/07
--- OUTSIDE RECORDS SUMMARY | 2024-08-11 07:50 | XMS_ITS | Encounter Summary ---
Author Organization [facility] Address 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 ADDITIONAL INFORMATION The quantification range of this assay is 15 to 100,000,000 IU/mL (1.18 log to 8.00 log IU/mL). Testing was performed using the chris HCV test ([employer] with the chris LikeIt.com0 System. Test Performed by: [facility] [address] [place] [address] Blood Collection / Unknown 06/27/2017 3:50 PM CDT 06/27/2017 3:51 PM CDT Ryan Mccall MD CHEMISTRY ORDERABLES Final R esult [facility] documented in this encounter Visit Diagnoses Diagnosis Contact with and (suspected) exposure to potentially hazardous body fluids (CODE) documented in this encounter Care Teams Experimental Technician Relationship Specialty Start Date End Date Corinna Arroyo MD [address] [place] [address] PCP - General 08/31/07 documented as of this encounter
--- OUTSIDE RECORDS SUMMARY | 2024-08-11 07:50 | XMS_ITS | Encounter Summary ---
Author Organization [facility] Address [address] [place] [address] Care Team Providers Care Bus Company Manager Name Role Phone Corinna Arroyo MD Primary Care Provider [phone] Encounter Details Date Type Department Care Team (Latest Contact Info) Description 09/02/2008 Outpatient Historical [facility] Tasneme Marshall MD [address] [place] [address] Other Specified Noninflammatory Disorder of Vagina Social History Tobacco Use Types Packs/Day Years Used Date Smoking Tobacco: Former Cigarettes Q uit: 03/16/2007 Comments No Sex and Gender Information Value Date Recorded Sex Assigned at Not on file Legal 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
--- OUTSIDE RECORDS SUMMARY | 2024-08-11 07:50 | XMS_ITS | Continuity of Care Document ---
Author Organization [facility] Address [address] [place] [address] Phone Care Team Providers Care Cake Winder Name Role Phone Albert Borrego MD Unavailable [...] - Active Procedures Procedure Date OFFICE/OUTPATIENT VISIT [facility] Advance Directives Directive Yes / No Effective Date File Name No Information Encounters Encounter Description Practice Location Reason(s) For Visit Diagnoses Date Provider Providers Copied on Encounter OFFICE/OUTPA TIENT VISIT [facility], [address] [place], [place] [address], [place], [address], [phone] [facility] Follow Up of l knee pain (chief complaint) Patellar malalignment syndromeChondro malacia of patella [address] Salima Price. [address] [place] [address], [id number] . tel: [phone] Referring Provider: Ciar[address] Gu[address], [place], [address]. tel:[phone] Family History Family Member Type Diagnosis Age At Onset No Information Payers Payer name Insurance type Covered constitution party ID Authoriza tion(s) No Information Social [...]
== END 2024-08-11 07:42 | disposition home or self-care (01) ==
LOC: CHSIMG 07:47
PROVIDERS: PCP Nurse Practitioner Family; Visit Provider Otolaryngology
DX: H91.20 Sudden idiopathic hearing loss, unspecified ear (principal); H91.91 Unspecified hearing loss, right ear; H74.8X3 Other specified disorders of middle ear and mastoid, bilateral
CPT/HCPCS: 70553; A9577

== ENCOUNTER 2024-08-28 11:55 | Outpatient (CLI) | payer OTHER, SELFPAY ==
--- OUTSIDE RECORDS SUMMARY | 2024-08-28 12:43 | XMS_ITS | Encounter Summary ---
Author Organization [employer] Address [address] [place] [address] Care Team Providers Care Thread Cutter Tender Name Role Phone Corinna Arroyo MD Primary Care Provider [phone] Encounter Details Date Type Department Care Team (Latest Contact Info) Description 08/19/2008 Outpatient Historical [facility], [address] Tasneem Marshall MD [address] [place] [address] Routine Gynecological Examination Social History Tobacco Use Types Packs/Day Years Used Date Smoking Tobacco: Former Cigarettes Q uit: 03/16/2007 Comments No Sex and Gender Information Value Date Recorded Sex Assigned at Not on file 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
--- OUTSIDE RECORDS SUMMARY | 2024-08-28 12:43 | XMS_ITS | Encounter Summary ---
Author Organization [facility] Address [address] [place] [address] Care Team Providers Care Drilling Field Professional Name Role Phone Corinna Arroyo MD Primary Care Provider [phone] Encounter Details Date Type Department Care Team (Late st Contact Info) Description 06/27/2017 Lab Requisition [facility] Laboratory Services S [facility] [address] [place] [address] [place] [address] 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 ADDITIONAL INFORMATION The quantification range of this assay is 15 to 100,000,000 IU/mL (1.18 log to 8.00 log IU/mL). Testing was performed using the chris HCV test ([employer] with the chris [employer] Systems0 System. Test Performed by: [facility] [address] [place] [address] Blood Collection / Unknown 06/27/2017 3:50 PM CDT 06/27/2017 3:51 PM CDT Ryan Mccall MD CHEMISTRY ORDERABLES Final R esult [facility] documented in this encounter Visit Diagnoses Diagnosis Contact with and (suspected) exposure to potentially hazardous body fluids (CODE) documented in this encounter Care Teams Drilling Field Professional Relationship Specialty Start Date End Date Corinna Arroyo MD [address] [place] [address] PCP - General 08/31/07 documented as of this encounter
--- OUTSIDE RECORDS SUMMARY | 2024-08-28 12:43 | XMS_ITS | Clinical Summary ---
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 Gender Identity Not on file Sexual Orientation Not on file Last Filed Vital Signs Vital Sign Reading Time Taken Comments Blood Pressure 117/82 03/24/2021 9:25 AM TURNER SPLITTER MACHINE OPERATOR Pulse 80 10/02/2018 10:05 AM CDT Temperature 36.7 C (98 F) 06/27/2017 8:30 AM CDT Respiratory Rate 18 06/27/2017 8:30 AM CDT Oxygen Saturation 98% 06/26/2017 9:30 PM CDT Inhaled Oxygen Concentration - - Weight 133.8 kg (295 lb) 03/24/2021 9:25 AM TURNER SPLITTER MACHINE OPERATOR Height 162.6 cm (5' 4) 03/24/2021 9:25 AM TURNER SPLITTER MACHINE OPERATOR Body Mass Index 50.64 03/24/2021 9:25 AM TURNER SPLITTER MACHINE OPERATOR Plan of Treatment Health Maintenance Due Date [...] 5.7(H) <5.7 % 10/07/2018 4:45 PM CDT [facility]AT[facility] SERVICES [facility] EST. AVG GLUCOSE, A1C 117 mg/dL 10/07/2018 4:45 PM T [facility] Blood Venipuncture / Unknown 10/07/2018 11:06 AM CDT 10/07/2018 11:06 AM CDT Narrative [facility] - 10/07/2018 4:45 PM CDT HGB A1C INTERPRETATION NORMAL: <5.7% PRE-DIABETES: 5.7 - 6.4% DIABETES: 6.5% OR GREATER Corinna Arroyo MD CHEMISTRY ORDERABLES Final R esult [facility] CLIA# [id number] [address] [place] [address] * CERV/VAG CYTO AGE BASED SCREEN PAP (05/22/2018 9:05 AM CDT) COMMENT (PAP): SEE COMMENT 7:50 AM CDT [facility] Comment: This order for age-based cervical cancer and STI screening follows ACOG guidelines(PB 168, 140, HAU130). See individual assays for performing site location. [...] 05/29/2018 7:50 AM CDT [facility] SHRIMP TRAWLER: SEE COMMENT 2018 7:50 AM CDT [facility] Comment: MXL, CT(ASCP) CT screening location: [facility] [place] [address] [address] [id number] REVIEW SHRIMP TRAWLER: SEE COMMENT 05/29/2018 7:50 AM CDT [facility] Comment: AMW, CT(ASCP) CT screening location: [place] [address] [address] [place] [id number] EXPLANATORY NOTE SEE COMMENT 019 7:50 AM [...] was performed using the APTIMA HPV Assay ([employer] This assay detects E6/E7 viral messenger RNA (mRNA) from 14 high-risk HPV types (16,18,31,33,35,39,45,51,52,56,58,59,66,68). The analytical performance characteristics of this assay have been determined by [employer]. The modifications have not been cleared or approved by the FDA. This assay has been validated pursuant to the CLIA regulations and is used for clinical purposes. Genital SWAB OF ENDOCERVIX / Unknown Collection / Unknown 05/22/2018 9:05 AM CDT 05/22/2018 10:49 AM CDT Narrative [facility] - 05/29/2018 7:50 AM CDT Performing Organization Information: Site ID: [id number] [facility] Address: [address] [place] [address] [place] [address] Director: Sanchez Koehler D.O., MPH Site ID: [id number] Name[facility] Address: [address] [address] [place] [address] Director: Deangelo Valdivia june Vishal DEWEY PATHOLOGY/CYTOLOGY ORDERABLES Final Result [facility] [phone] from Last 3 Months or Most Recently Relevant to Health Maintenance Insurance ADMINISTRATIVE CONCEPTS LBP Advance Directives For more information, please contact: [phone] * Full Code (Latest Code Status on File) Date Activated Date Inactivated Comments 06/25/2017 6:02 AM 06/27/2017 1:36 PM * Full Code Date Activated Date Inactivated Comments 06/24/2017 10:03 AM 06/25/2017 2:21 AM * Full Code Date Activated Date Inactivated Comments 06/24/2017 9:29 AM 06/24/2017 10:03 AM Care Teams Kit Planner Relationship Specialty Start Date End Date Corinna Arroyo MD [address] [place] [address] PCP - General 08/31/07
--- OUTSIDE RECORDS SUMMARY | 2024-08-28 12:43 | XMS_ITS | Encounter Summary ---
Author Organization [facility] Address [address] [place] [address] Care Team Providers Care Key Ringer Name Role Phone Corinna Arroyo MD Primary Care Provider [phone] Reason for Visit * Reason Comments Medication Refill Encounter Details Date Type Department Care Team (Late st Contact Info) Description 11/03/2017 Refill [facility] [place] [facility] [address] [place] [address] Leonor Mora MD [address] [place] [address] Social History Tobacco Use Types Packs/Day Years Used Date Smoking Tobacco: Former Cigarettes Q uit: 03/16/2007 Smokeless Tobacco: Never Alcohol Use Standard Drinks/Week Comments No 0 (1 standard drink = 0.6 oz pur e alcohol) Comments No Sex and Gender Information Value Date Recorded Sex Assigned at Not on file Legal Sex Female 5:35 AM HAND TUFTER Gender Identity Not on file Sexual Orientation Not on file documented as of this encounter Miscellaneous Notes * Telephone Encounter - Maral Shah - 11/03/2017 12:58 PM CDT Nov 02/21/18 [place] 08/19/17 documented in this encounter Plan of Treatment Not on file documented as of this encounter Visit Diagnoses Not on filedocumented in this encounter Care Teams Key Ringer Relationship Specialty Start Date End Date Corinna Arroyo MD [address] [place] [address] PCP - General 08/31/07 documented as of this encounter
--- OUTSIDE RECORDS SUMMARY | 2024-08-28 12:43 | XMS_ITS | Encounter Summary ---
Author Organization [facility] Address [address] [place] [address] Care Team Providers Care Home Assessment Nurse Name Role Phone Corinna Arroyo MD Primary Care Provider [phone] Encounter Details Date Type Department Care Team (Late st Contact Info) Description 01/26/2008 Outpatient Historical [facility] [place] [address] [place] [address] Cholelithiasis NOS Social History Tobacco Use Types Packs/Day Years Used Date Smoking Tobacco: Former Cigarettes Q uit: 03/16/2007 Comments No Sex and Gender Information Value Date Recorded Sex Assigned at Not on file Legal Sex Female 5:35 AM PUMPMAN Gender Identity Not on file Sexual Orientation Not on file documented as of this encounter Plan of Treatment Not on file documented as of this encounter Procedures Procedure Name Priority Date/Time Associated Diagnosis Comments PATHOLOGY Routine 02/02/2008 10:18 AM PUMPMAN documented in this encounter Results * PATHOLOGY (02/02/2008 10:18 AM PUMPMAN) FINAL REPORT [facility] [address] [place], [place] [address] Patient: MARY GREGORIO : 1980 Procedure Date: 02/02/2008 Accession Date: 02/02/2008 Case No: [id number] Ordering Dr: ANABELLA OHARA Case types AW, BW, FW, NW and SH are performed by [facility], [place], [place] SURGICAL PATHOLOGY & NON-GYNECOLOGIC CYTOPATHOLOGY REPORT [...] 0.2 cm. The cystic duct margin and home office representative sections of gallbladder are submitted in block A1. [facility]/SK 02.02.2008 05:11 pm Microscopic: The slide is labeled [id number] and Mary Gregorio. Histologic sections of the gallbladder mucosa reveal chronic inflammation. There are collections of foamy macrophages present in the glandular villi, consistent with cholesterolosis. There is no evidence of malignancy. GL/GDH 02.05.2008 02:45 pm Staging Form: No. ELECTRONIC SIGNATURE FOR ALONZO CAMPOS M.D.- 02/05/08 04:23 pm INTERFACE SYSTEM 02/02/2008 10:1 8 AM PUMPMAN Anabella Ohara MD PATHOLOGY/CYTOLOGY ORDERABLES Final Result INTERFACE SYSTEM Refer to clinic/hospital department documented in this encounter Visit Diagnoses Diagnosis Calculus of gallbladder without mention of cholecystitis or obstruction documented in this encounter Care Teams Home Assessment Nurse Relationship Specialty Start Date End Date Corinna Arroyo MD [address] [place] [address] PCP - General 08/31/07 documented as of this encounter
--- OUTSIDE RECORDS SUMMARY | 2024-08-28 12:43 | XMS_ITS | Encounter Summary ---
Author Organization [employer] Address [address] [place] [address] Care Team Providers Care Boat Loader Name Role Phone Yady Begum MD Primary Care Provider [phone] Encounter Details Date Type Department Care Team (Late st Contact Info) Description 02/01/2008 Outpatient Historical [facility], Authorized [place] [address] [place] [address] Cholecystitis, Unspecified Social History Tobacco Use Types Packs/Day Years Used Date Smoking Tobacco: Former Cigarettes Q uit: 03/16/2007 Comments No Sex and Gender Information Value Date Recorded Sex Assigned at Not on file Legal Sex Female 5:35 AM BASKET GRADER Gender Identity Not on file Sexual Orientation Not on file documented as of this encounter Plan of Treatment Not on file documented as of this encounter Procedures Procedure Name Priority Date/Time Associated Diagnosis Comments XR CHOLANGIOGRAM OPERATIVE Routine 02/02/2008 9:00 AM BASKET GRADER POC , URINE Routine 02/02/2008 8:00 AM BASKET GRADER CBC WITH DIFFERENTIAL Stat 02/01/2008 10:25 PM BASKET GRADER LIPASE Stat 02/01/2008 10:25 PM BASKET GRADER AMYLASE Stat 02/01/2008 10:25 PM BASKET GRADER COMPREHENSIVE METABOLIC PANEL Stat 02/01/2008 10:25 PM BASKET GRADER documented in this encounter Results * XR CHOLANGIOGRAM OPERATIVE (02/02/2008 9:00 AM BASKET GRADER) Anatomical Region Laterality Modality Abdomen Other 02/02/2008 9:00 AM BASKET GRADER Narrative 02/05/2008 10:44 AM BASKET GRADER [facility] [address] [place], [place] [address] Admit Date: 02/02/2008 GABINO GREGORIO Sex: F Admit Prov: RAEGAN OHARA Date: 1980 [facility] CMRN: [id number] Room: [place] [address] SSN: [id number] IMAGING SERVICES Ordering Prov: N/A Accession Number: [id number] Interpretation OPERATIVE CHOLANGIOGRAM 02/02/2008 Clinical history: Cholecystitis, [...] Procedure Note Mannie Campbell MD - 02/05/2008 [facility] [address] [place], [place] [address] Admit Date: 02/02/2008 GABINO GREGORIO Sex: F Admit Prov: RAEGAN OHARA Date: 1980 Primary Care Prov: YADY BEGUM CMRN: [id number] Room: [place] [address] SSN: [id number] IMAGING SERVICES Ordering Prov: N/A Interpretation OPERATIVE [...] * POC , URINE (02/02/2008 8:00 AM BASKET GRADER) , URINE POC Negative Negative [facility] Urine specimen (specimen) 02/02/2008 8:00 AM BASKET GRADER 02/02/2008 8:00 AM BASKET GRADER us Raegan Ohara MD POINT OF CARE TESTING Final Re sult Performing Organization Address [facility] de Phone Number INTERFACE SYSTEM Refer to clinic/hospital department [facility] CLIA# [id number] [address] [place] [address] * LIPASE (02/01/2008 10:25 PM BASKET GRADER) LIPASE 32 13 - 60 U/L [facility] Blood specimen (specimen) 02/01/2008 10:25 PM BASKET GRADER 02/01/2008 11:35 PM BASKET GRADER Parag Greenberg MD CHEMISTRY ORDERABLES Final Resul t Performing Organization Address City/[facility] de Phone Number INTERFACE SYSTEM Refer to clinic/hospital department [facility] CLIA# [id number] [address] [place] [address] * (ABNORMAL) COMPREHENSIVE METABOLIC PANEL (02/01/2008 10:25 PM BASKET GRADER) CREATININE 0.90 0.51 - 0.95 mg/dL [facility] SODIUM 140 135 - 145 mmol/L [facility] ALT 93(H) 0 - 31 U/L [facility] ALKALINE PHOSPHATASE 52 35 - 104 U/L [facility] BILIRUBIN TOTAL 0.6 0.2 - 1.0 mg/dL [facility] CO2 26 22 - 30 mmol/L [facility] TOTAL PROTEIN 8.0 6.3 - 8.6 g/dL [facility] POTASSIUM 3.8 3.5 - 4.9 mmol/L [facility] GLUCOSE 115(H) 65 - 99 mg/dL [facility] AST 91(H) 12 - 32 U/L [facility] BUN 13 6 - 20 mg/dL [facility] CALCIUM 9.1 8.6 - 10.2 mg/dL [facility] CHLORIDE 102 96 - 108 mmol/L [facility] ALBUMIN 5.0(H) 3.4 - 4.8 g/dL [facility] GFR, >60 >=60 mL/min/1. 7 sq meter [facility] GFR >60 >=60 mL/min/1. 7 sq meter [facility] Comment: Modification of Diet in Renal Disease (MDRD) study formula. Estimated GFR rate interpretative information for both Americans and non- Americans is available on the [facility] Intranet at: [email or web address] Select: Lab Policies and Procedures Select: Reference Ranges - GFR Blood specimen (specimen) 02/01/2008 10:25 PM BASKET GRADER 02/01/2008 11:35 PM BASKET GRADER us Parag Greenberg MD CHEMISTRY ORDERABLES Edited INTERFACE SYSTEM Refer to clinic/hospital department [facility] CLIA# [id number] [address] [place] [address] * CBC WITH DIFFERENTIAL (02/01/2008 10:25 PM BASKET GRADER) HEMATOCRIT 41.2 35.5 - 44.0 % [facility] RDW-STDEV 42.4 37.1 - 48.7 fL [facility] RBC 4.56 3.90 - 4.90 M/uL [facility] MCHC 33.5 31.5 - 35.5 % [facility] MCV 90.4 82.0 - 99.0 fL [facility] PLATELETS 253 140 - 350 K/uL [facility] HEMOGLOBIN 13.8 11.8 - 14.8 g/dL [facility] RDW 13.0 11.5 - 14.5 % [facility] WBC 9.3 4.0 - 9.8 K/uL [facility] MCH 30.3 27.2 - 32.6 pg [facility] MPV 11.4 9.3 - 12.4 fL [facility] BASOPHILS 0 0 - 2 % [facility] BASOPHILS ABSOLUTE 0.02 0.00 - 0.20 K/uL [facility] MONOCYTES 7 3 - 13 % [facility] MONOCYTE ABSOLUTE 0.68 0.10 - 1.30 K/uL [facility] NEUTROPHILS 66 45 - 70 % [facility] NEUTROPHIL ABSOLUTE 6.20 1.90 - 7.00 K/uL [facility] EOSINOPHILS 2 0 - 7 % [facility] EOSINOPHIL ABSOLUTE 0.19 0.00 - 0.70 K/uL [facility] LYMPHOCYTES 24 16 - 45 % [facility] LYMPHOCYTE ABSOLUTE 2.25 0.70 - 4.50 K/uL [facility] Blood specimen (specimen) 02/01/2008 10:25 PM BASKET GRADER 02/01/2008 11:35 PM BASKET GRADER Parag Greenberg MD HEMATOLOGY ORDERABLES Edited Performing Organization Address [facility] de Phone Number INTERFACE SYSTEM Refer to clinic/hospital department [facility] CLIA# [id number] [address] [place] [address] * (ABNORMAL) AMYLASE (02/01/2008 10:25 PM BASKET GRADER) AMYLASE 258(H) 28 - 100 U/L [facility] Blood specimen (specimen) 02/01/2008 10:25 PM BASKET GRADER 02/01/2008 11:35 PM BASKET GRADER Parag Greenberg MD CHEMISTRY ORDERABLES Final Resul t Performing Organization Address [facility] Phone Number INTERFACE SYSTEM Refer to clinic/hospital department [facility] CLIA# [id number] [address] [place] [address] documented in this encounter Visit Diagnoses Diagnosis Cholecystitis, unspecified documented in this encounter Care Teams Boat Loader Relationship Specialty Start Date End Date Yady Begum MD [address] [place] [address] PCP - General 08/31/07 documented as of this encounter
--- OUTSIDE RECORDS SUMMARY | 2024-08-28 12:43 | XMS_ITS | Encounter Summary ---
Author Organization [facility] Address [address] [place] [address] Care Team Providers Care Ambulatory Analyst Name Role Phone Yady Begum MD Primary Care Provider [phone] Encounter Details Date Type Department Care Team (Late st Contact Info) Description 01/24/2008 Outpatient Historical [facility] Yady Begum MD [address] [facility] [address] [place] [address] Abdominal Pain, Unspecified Site Social History Tobacco Use Types Packs/Day Years Used Date Smoking Tobacco: Former Cigarettes Q uit: 03/16/2007 Comments No Sex and Gender Information Value Date Recorded Sex Assigned at Not on file Legal Sex Female 5:35 AM HAM ROLLING MACHINE OPERATOR Gender Identity Not on file Sexual Orientation Not on file documented as of this encounter Plan of Treatment Not on file documented as of this encounter Procedures Procedure Name Priority Date/Time Associated Diagnosis Comments US ABDOMEN LIMITED Timed Study 01/24/2008 7: 27 AM HAM ROLLING MACHINE OPERATOR documented in this encounter Results * US ABDOMEN LIMITED (01/24/2008 7:27 AM HAM ROLLING MACHINE OPERATOR) Anatomical Region Laterality Modality Abdomen Other 01/24/2008 7:27 AM HAM ROLLING MACHINE OPERATOR Narrative 01/24/2008 9:56 AM HAM ROLLING MACHINE OPERATOR [address] [address] Admit Date: 01/24/2008 MARY GREGORIO Sex: F Admit Prov: YADY BEGUM Date: 1980 Primary Care Prov: MARIOLA AHUMADA CMRN: [id number] [id number] [facility] Ordering Prov: N/A Accession Number: [id number] Interpretation ULTRASOUND OF THE ABDOMEN, LIMITED, 01/24/2008 [...] Procedure Note Janie Bar MD - 01/24/2008 [facility] [address], [place] [address] Admit Date: 01/24/2008 MARY GREGORIO Sex: F Admit Prov: YADY BEGUM Date: 1980 Primary Care Prov: MARIOLA AHUMADA CMRN: [id number] [facility] [id number] IMAGING SERVICES Ordering Prov: N/A Interpretation ULTRASOUND [...] site documented in this encounter Care Teams Ambulatory Analyst Relationship Specialty Start Date End Date Yady Begum MD [address] [facility] [address] [place] [address] PCP - General 08/31/07 documented as of this encounter
--- OUTSIDE RECORDS SUMMARY | 2024-08-28 12:43 | XMS_ITS | Encounter Summary ---
Author Organization [employer] Address [address] [place] [address] Care Team Providers Care Underwater Roboticist Name Role Phone Corinna Arroyo MD Primary Care Provider [phone] Encounter Details Date Type Department Care Team (Latest Contact Info) Description 10/03/2007 Outpatient Historical [facility], [address] Tasneem Marshall MD [address] [facility] [address] [place] [address] Routine Gynecological Examination Social History Tobacco Use Types Packs/Day Years Used Date Smoking Tobacco: Never Assessed Comments No Sex and Gender Information Value Date Recorded Sex Assigned at Not on file Legal Sex Female 5:35 AM SEXTON HELPER Gender Identity Not on file Sexual Orientation Not on file documented as of this encounter Plan of Treatment Not on file documented as of this encounter Procedures Procedure Name Priority Date/Time Associated Diagnosis Comments CERV/VAG CYTOPATH, SUREPATH W/RFLX HPV Routine 10/02/2007 11:34 AM CDT documented in this encounter Results * CERV/VAG CYTOPATH, SUREPATH W/RFLX HPV (10/02/2007 11:34 AM CDT) SOURCE Cervix, Endocervix S [facility] LAST MENSTRUAL PERIOD 07-13-07 [facility] CYTOTECHNOLOGI ST: SEUN CASE(ASCP) [facility] Comment: Lab test performed by: [place] [facility] [address] [place] [address] BEV SRIVASTAVA MD REPORT STATUS FINAL [facility] ADEQUACY: Satisfactory for evaluation. Endocervical/trans formation zone component present. [facility] CLINICAL INFORMATION Information not provided [facility] PAP INTERP Negative for intraepithelial lesion or malignancy. [facility] PREV BX: Information not provided [facility] Ground Support Equipment Assembler Pap Comment Based on the cytology result, reflex High Risk HPV DNA testing was not performed. [facility] PREV PAP: Information not provided [facility] Specimen from uterine cervix (specimen) 10/02/2007 11:34 AM CDT 10/03/2007 12:09 PM CDT Tasneem Marshall MD PATHOLOGY/CYTOLOGY ORDERA BLES Final Result [facility] CLIA# [id number] [address] [place] [address] documented in this encounter Visit Diagnoses Diagnosis Routine gynecological examination documented in this encounter Care Teams Underwater Roboticist Relationship Specialty Start Date End Date Corinna Arroyo MD [address] [place] [address] PCP - General 08/31/07 documented as of this encounter
--- OUTSIDE RECORDS SUMMARY | 2024-08-28 12:43 | XMS_ITS | Encounter Summary ---
Author Organization [employer] Address [address] [place] [address] Care Team Providers Care Thread Grinder Name Role Phone Corinna Arroyo MD Primary Care Provider [phone] Encounter Details Date Type Department Care Team (Latest Contact Info) Description 09/02/2008 Outpatient Historical [facility] Tasneem Marshall MD [address] [facility] [address] [place] [address] Other Specified Noninflammatory Disorder of Vagina Social History Tobacco Use Types Packs/Day Years Used Date Smoking Tobacco: Former Cigarettes Q uit: 03/16/2007 Comments No Sex and Gender Information Value Date Recorded Sex Assigned at Not on file Legal Sex Female 5:35 AM DECORATOR CONSULTANT Gender Identity Not on file Sexual Orientation Not on file documented as of this encounter Plan of Treatment Not on file documented as of this encounter Visit Diagnoses Diagnosis Other specified noninflammatory disorder of vagina documented in this encounter Care Teams Thread Grinder Relationship Specialty Start Date End Date Corinna Arroyo MD [address] [facility] [address] [place] [address] PCP - General 08/31/07 documented as of this encounter
== END 2024-08-28 11:56 | disposition home or self-care (01) ==
LOC: ANHBWCAUD 11:56
PROVIDERS: PCP Nurse Practitioner Family; Visit Provider Otolaryngology
DX: H90.3 Sensorineural hearing loss, bilateral (principal)
CPT/HCPCS: 92557; 92567

== ENCOUNTER 2025-01-10 08:58 | Outpatient (CLI) | payer OTHER, SELFPAY ==
--- NOTE | ~2025-01-10 | US_ITS ---
US breast RT limited 01/10/2025 09:17 Indication: Follow-up right breast asymmetry Procedure: High-resolution Limited ultrasound of the right breast Comparison: Comparison to multiple prior studies sequentially, with oldest reviewed study dated 05/25/2024. Findings: At 2:00, 5 cm from the nipple there is a 9 mm intramammary lymph node which is stable, benign. No suspicious masses to suggest malignancy. Impression: 1: Benign 9 mm intramammary lymph node of the right breast at 2:00, 5 cm from the nipple. No evidence for malignancy. Routine yearly screening mammogram and regular clinical breast examination are recommended. BI-RADS CATEGORY 2 - BENIGN FINDINGS Reviewed, dictated and finalized at location B. Impression: 1: Benign 9 mm intramammary lymph node of the right breast at 2:00, 5 cm from t he nipple. No evidence for malignancy. Routine yearly screening mammogram and regular clinical breast examination are recommended. BI-RADS CATEGORY 2 - BENIGN FINDINGS
--- OUTSIDE RECORDS SUMMARY | 2025-01-10 09:28 | XMS_ITS | Encounter Summary ---
Author Organization [employer] Address [address] [place] [address] Care Team Providers Care Rubbish Collector Name Role Phone Yady Begum MD Primary Care Provider [phone] Encounter Details Date Type Department Care Team (Late st Contact Info) Description 02/01/2008 Outpatient Historical [facility] [place], Authorized [place] [address] [place] [address] Cholecystitis, Unspecified Social History Tobacco Use Types Packs/Day Years Used Date Smoking Tobacco: Former Cigarettes Q uit: 03/16/2007 Comments No Sex and Gender Information Value Date Recorded Sex Assigned at Not on file Legal Sex Female 5:35 AM EQUIPMENT SERVICE ENGINEER Gender Identity Not on file Sexual Orientation Not on file documented as of this encounter Plan of Treatment Not on file documented as of this encounter Procedures Procedure Name Priority Date/Time Associated Diagnosis Comments XR CHOLANGIOGRAM OPERATIVE Routine 02/02/2008 9:00 AM EQUIPMENT SERVICE ENGINEER POC , URINE Routine 02/02/2008 8:00 AM EQUIPMENT SERVICE ENGINEER CBC WITH DIFFERENTIAL Stat 02/01/2008 10:25 PM EQUIPMENT SERVICE ENGINEER LIPASE Stat 02/01/2008 10:25 PM EQUIPMENT SERVICE ENGINEER AMYLASE Stat 02/01/2008 10:25 PM EQUIPMENT SERVICE ENGINEER COMPREHENSIVE METABOLIC PANEL Stat 02/01/2008 10:25 PM EQUIPMENT SERVICE ENGINEER documented in this encounter Results * XR CHOLANGIOGRAM OPERATIVE (02/02/2008 9:00 AM EQUIPMENT SERVICE ENGINEER) Anatomical Region Laterality Modality Abdomen Other 02/02/2008 9:00 AM EQUIPMENT SERVICE ENGINEER Narrative 02/05/2008 10:44 AM EQUIPMENT SERVICE ENGINEER [facility] [address] [place], [place] [address] Admit Date: 02/02/2008 GABINO GREGORIO Sex: F Admit Prov: RAEGAN OHARA Date: 1980 Primary [facility] CMRN: [id number] Room: [address] [address] SSN: [id number] IMAGING SERVICES Ordering Prov: N/A Accession Number: [id number] Interpretation OPERATIVE CHOLANGIOGRAM 02/02/2008 Clinical history: Cholecystitis, [...] Procedure Note Mannie Campbell MD - 02/05/2008 [facility] [address] [place], [place] [address] Admit Date: 02/02/2008 GABINO GREGORIO Sex: F Admit Prov: RAEGAN OHARA Date: 1980 Primary Care Prov: YADY BEGUM CMRN: [id number] Room: [address] [address] SSN: [id number] IMAGING SERVICES Ordering Prov: N/A Interpretation OPERATIVE [...] * POC , URINE (02/02/2008 8:00 AM EQUIPMENT SERVICE ENGINEER) , URINE POC Negative Negative [facility] Urine specimen (specimen) 02/02/2008 8:00 AM EQUIPMENT SERVICE ENGINEER 02/02/2008 8:00 AM EQUIPMENT SERVICE ENGINEER us Raegan Ohara MD POINT OF CARE TESTING Final Re sult Performing Organization Address [facility] de Phone Number INTERFACE SYSTEM Refer to clinic/hospital department [facility] CLIA# [id number] [address] [place] [address] * LIPASE (02/01/2008 10:25 PM EQUIPMENT SERVICE ENGINEER) LIPASE 32 13 - 60 U/L [facility] Blood specimen (specimen) 02/01/2008 10:25 PM EQUIPMENT SERVICE ENGINEER 02/01/2008 11:35 PM EQUIPMENT SERVICE ENGINEER Parag Greenberg MD CHEMISTRY ORDERABLES Final Resul t Performing Organization Address [facility] de Phone Number INTERFACE SYSTEM Refer to clinic/hospital department [facility] CLIA# [id number] [address] [place] [address] * (ABNORMAL) COMPREHENSIVE METABOLIC PANEL (02/01/2008 10:25 PM EQUIPMENT SERVICE ENGINEER) CREATININE 0.90 0.51 - 0.95 mg/dL [facility] SODIUM 140 135 - 145 mmol/L [facility] ALT 93(H) 0 - 31 U/L [facility] ALKALINE PHOSPHATASE 52 35 - 104 U/L [facility] BILIRUBIN TOTAL 0.6 0.2 - 1.0 mg/dL [facility] CO2 26 22 - 30 mmol/L [facility] TOTAL PROTEIN 8.0 6.3 - 8.6 g/dL [facility] POTASSIUM 3.8 3.5 - 4.9 mmol/L [facility] GLUCOSE 115(H) 65 - 99 mg/dL [facility] AST 91(H) 12 - 32 U/L [facility] BUN 13 6 - 20 mg/dL [facility] CALCIUM 9.1 8.6 - 10.2 mg/dL [facility] CHLORIDE 102 96 - 108 mmol/L [facility] ALBUMIN 5.0(H) 3.4 - 4.8 g/dL [facility] GFR, >60 >=60 mL/min/1. 7 sq meter [facility] GFR >60 >=60 mL/min/1. 7 sq meter [facility] Comment: Modification of Diet in Renal Disease (MDRD) study formula. Estimated GFR rate interpretative information for both Americans and non- Americans is available on the [facility] Intranet at: [email or web address] Select: Lab Policies and Procedures Select: Reference Ranges - GFR Blood specimen (specimen) 02/01/2008 10:25 PM EQUIPMENT SERVICE ENGINEER 02/01/2008 11:35 PM EQUIPMENT SERVICE ENGINEER us Parag Greenberg MD CHEMISTRY ORDERABLES Edited INTERFACE SYSTEM Refer to clinic/hospital department [facility] CLIA# [id number] [address] [place] [address] * CBC WITH DIFFERENTIAL (02/01/2008 10:25 PM EQUIPMENT SERVICE ENGINEER) HEMATOCRIT 41.2 35.5 - 44.0 % [facility] RDW-STDEV 42.4 37.1 - 48.7 fL [facility] RBC 4.56 3.90 - 4.90 M/uL [facility] MCHC 33.5 31.5 - 35.5 % [facility] MCV 90.4 82.0 - 99.0 fL [facility] PLATELETS 253 140 - 350 K/uL [facility] HEMOGLOBIN 13.8 11.8 - 14.8 g/dL [facility] RDW 13.0 11.5 - 14.5 % [facility] WBC 9.3 4.0 - 9.8 K/uL [facility] MCH 30.3 27.2 - 32.6 pg [facility] MPV 11.4 9.3 - 12.4 fL [facility] BASOPHILS 0 0 - 2 % [facility] BASOPHILS ABSOLUTE 0.02 0.00 - 0.20 K/uL [facility] MONOCYTES 7 3 - 13 % [facility] MONOCYTE ABSOLUTE 0.68 0.10 - 1.30 K/uL [facility] NEUTROPHILS 66 45 - 70 % [facility] NEUTROPHIL ABSOLUTE 6.20 1.90 - 7.00 K/uL [facility] EOSINOPHILS 2 0 - 7 % [facility] EOSINOPHIL ABSOLUTE 0.19 0.00 - 0.70 K/uL [facility] LYMPHOCYTES 24 16 - 45 % [facility] LYMPHOCYTE ABSOLUTE 2.25 0.70 - 4.50 K/uL [facility] Blood specimen (specimen) 02/01/2008 10:25 PM EQUIPMENT SERVICE ENGINEER 02/01/2008 11:35 PM EQUIPMENT SERVICE ENGINEER Parag Greenberg MD HEMATOLOGY ORDERABLES Edited Performing Organization Address [facility] de Phone Number INTERFACE SYSTEM Refer to clinic/hospital department [facility] CLIA# [id number] [address] [place] [address] * (ABNORMAL) AMYLASE (02/01/2008 10:25 PM EQUIPMENT SERVICE ENGINEER) AMYLASE 258(H) 28 - 100 U/L [facility] Blood specimen (specimen) 02/01/2008 10:25 PM EQUIPMENT SERVICE ENGINEER 02/01/2008 11:35 PM EQUIPMENT SERVICE ENGINEER Parag Greenberg MD CHEMISTRY ORDERABLES Final Resul t Performing Organization Address [facility] Phone Number INTERFACE SYSTEM Refer to clinic/hospital department [facility] CLIA# [id number] [address] [place] [address] documented in this encounter Visit Diagnoses Diagnosis Cholecystitis, unspecified documented in this encounter Care Teams Rubbish Collector Relationship Specialty Start Date End Date Yady Begum MD [address] [place] [address] PCP - General 08/31/07 documented as of this encounter
--- OUTSIDE RECORDS SUMMARY | 2025-01-10 09:28 | XMS_ITS | Encounter Summary ---
Author Organization [facility] Address [address] [place] [address] Care Team Providers Care Mine Development Engineer Name Role Phone Corinna Arroyo MD Primary Care Provider [phone] Encounter Details Date Type Department Care Team (Latest Contact Info) Description 09/02/2008 Outpatient Historical [facility] Tasneem Marshall MD [address] [facility] [address] [place] [address] Other Specified Noninflammatory Disorder of Vagina Social History Tobacco Use Types Packs/Day Years Used Date Smoking Tobacco: Former Cigarettes Q uit: 03/16/2007 Comments No Sex and Gender Information Value Date Recorded Sex Assigned at Not on file Legal Sex Female 5:35 AM INTAKE CLINICIAN Gender Identity Not on file Sexual Orientation Not on file documented as of this encounter Plan of Treatment Not on file documented as of this encounter Visit Diagnoses Diagnosis Other specified noninflammatory disorder of vagina documented in this encounter Care Teams Mine Development Engineer Relationship Specialty Start Date End Date Corinna Arroyo MD [address] [place] [address] PCP - General 08/31/07 documented as of this encounter
--- OUTSIDE RECORDS SUMMARY | 2025-01-10 09:28 | XMS_ITS | Encounter Summary ---
Author Organization [facility] Address [address] [place] [address] Care Team Providers Care Infantry Operations Specialist Name Role Phone Yady Begum MD Primary Care Provider [phone] Encounter Details Date Type Department Care Team (Late st Contact Info) Description 01/24/2008 Outpatient Historical [facility] Yady Begum MD [address] [facility] [address] [place] [address] Abdominal Pain, Unspecified Site Social History Tobacco Use Types Packs/Day Years Used Date Smoking Tobacco: Former Cigarettes Q uit: 03/16/2007 Comments No Sex and Gender Information Value Date Recorded Sex Assigned at Not on file Legal Sex Female 5:35 AM FOOD COOKING MACHINE OPERATOR Gender Identity Not on file Sexual Orientation Not on file documented as of this encounter Plan of Treatment Not on file documented as of this encounter Procedures Procedure Name Priority Date/Time Associated Diagnosis Comments US ABDOMEN LIMITED Timed Study 01/24/2008 7: 27 AM FOOD COOKING MACHINE OPERATOR documented in this encounter Results * US ABDOMEN LIMITED (01/24/2008 7:27 AM FOOD COOKING MACHINE OPERATOR) Anatomical Region Laterality Modality Abdomen Other 01/24/2008 7:27 AM FOOD COOKING MACHINE OPERATOR Narrative 01/24/2008 9:56 AM FOOD COOKING MACHINE OPERATOR [address] [address] Admit Date: 01/24/2008 MARY GREGORIO Sex: F Admit Prov: YADY BEGUM Date: 1980 Primary Care Prov: MARIOLA AHUMADA CMRN: [id number] [id number] [facility] Ordering Prov: N/A Accession Number: [id number] Interpretation ULTRASOUND OF THE ABDOMEN, LIMITED, 01/24/2008 [...] Procedure Note Janie Bar MD - 01/24/2008 [facility] [address], [place] [address] Admit Date: 01/24/2008 MARY GREGORIO Sex: F Admit Prov: YADY BEGUM Date: 1980 Primary Care Prov: MARIOLA AHUMADA CMRN: [id number] [id number] IM[facility]ING SERVICES Ordering Prov: N/A Interpretation ULTRASOUND [...] BAR 01/24/2008 09:54 Transcribed: 01/24/2008 09:27 DKT Yday Begum MD ORDERABLES Final Result documented in this encounter Visit Diagnoses Diagnosis Abdominal pain, unspecified site documented in this encounter Care Teams Infantry Operations Specialist Relationship Specialty Start Date End Date Yady Begum MD [address] [facility] [address] [place] [address] PCP - General 08/31/07 documented as of this encounter
--- OUTSIDE RECORDS SUMMARY | 2025-01-10 09:28 | XMS_ITS | Encounter Summary ---
Author Organization [facility] Address [address] [place] [address] Care Team Providers Care Middleware Consultant Name Role Phone Corinna Arroyo MD Primary Care Provider [phone] Encounter Details Date Type Department Care Team (Late st Contact Info) Description 06/27/2017 Lab Requisition [facility] Services [facility] [address] [place] [phone] [place] [address] [address] [facility] [address] [place] [address] Contact with and (suspected) exposure [...] file Legal Sex Female 5:35 AM BEHAVIORAL PSYCHOLOGIST Gender Identity Not on file Sexual Orientation [...] Undetected Undetected IU/mL 06/28/2017 8:18 PM CDT [facility] Comment: Result in log IU/mL is Undetected. ADDITIONAL INFORMATION The quantification range of this assay is 15 to 100,000,000 IU/mL (1.18 log to 8.00 log IU/mL). Testing was performed using the chris HCV test ([employer] with the chris [employer] System. Test Performed by: [facility] [address] [place] [address] Blood Collection / Unknown 06/27/2017 3:50 PM CDT 06/27/2017 3:51 PM CDT Ryan Mccall MD CHEMISTRY ORDERABLES Final R esult [facility] documented in this encounter Visit Diagnoses Diagnosis Contact with and (suspected) exposure to potentially hazardous body fluids (CODE) documented in this encounter Care Teams Middleware Consultant Relationship Specialty Start Date End Date Corinna Arroyo MD [address] [place] [address] PCP - General 08/31/07 documented as of this encounter
--- OUTSIDE RECORDS SUMMARY | 2025-01-10 09:28 | XMS_ITS | Encounter Summary ---
Author Organization [employer] Address [address] [place] [address] Care Team Providers Care Docket Clerk Name Role Phone Corinna Arroyo MD Primary Care Provider [phone] Encounter Details Date Type Department Care Team (Latest Contact Info) Description 08/19/2008 Outpatient Historical [facility], [address] Tasneem Marshall MD [address] [place] [address] Routine Gynecological Examination Social History Tobacco Use Types Packs/Day Years Used Date Smoking Tobacco: Former Cigarettes Q uit: 03/16/2007 Comments No Sex and Gender Information Value Date Recorded Sex Assigned at Not on file 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
--- OUTSIDE RECORDS SUMMARY | 2025-01-10 09:28 | XMS_ITS | Encounter Summary ---
Author Organization [facility] Address [address] [place] [address] Care Team Providers Care Events Traffic Controller Name Role Phone Corinna Arroyo MD Primary Care Provider [phone] Reason for Visit * Reason Comments Medication Refill Encounter Details Date Type Department Care Team (Late st Contact Info) Description 11/03/2017 Refill [facility] Endocrinology [address] [place] [address] Leonor Mora MD [address] [place] [address] Social History Tobacco Use Types Packs/Day Years Used Date Smoking Tobacco: Former Cigarettes Q uit: 03/16/2007 Smokeless Tobacco: Never Alcohol Use Standard Drinks/Week Comments No 0 (1 standard drink = 0.6 oz pur e alcohol) Comments No Sex and Gender Information Value Date Recorded Sex Assigned at Not on file 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
--- OUTSIDE RECORDS SUMMARY | 2025-01-10 09:28 | XMS_ITS | Encounter Summary ---
Author Organization [facility] Address 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 Gender Identity Not on file Sexual Orientation Not on file documented as of this encounter Plan of Treatment Not on file documented as of this encounter Procedures Procedure Name Priority Date/Time Associated Diagnosis Comments PATHOLOGY Routine 02/02/2008 10:18 AM 1ST GRADE TEACHER documented in this encounter Results * PATHOLOGY (02/02/2008 10:18 AM 1ST GRADE TEACHER) FINAL REPORT [facility] [place], [place] [address] Patient: MARY GREGORIO : 1980 Procedure Date: 02/02/2008 Accession Date: 02/02/2008 Case No: [id number] Ordering Dr: ANABELLA OHARA Case types AW, BW, FW, NW and SH are performed by [facility], [place], [place] SURGICAL PATHOLOGY & NON-GYNECOLOGIC CYTOPATHOLOGY REPORT [...] 0.2 cm. The cystic duct margin and premium representative sections of gallbladder are submitted in block A1. [facility] 02.02.2008 05:11 pm Microscopic: The slide is labeled [id number] and Mary Gregorio. Histologic sections of the gallbladder mucosa reveal chronic inflammation. There are collections of foamy macrophages present in the glandular villi, consistent with cholesterolosis. There is no evidence of malignancy. GL/GDH 02.05.2008 02:45 pm Staging Form: No. ELECTRONIC SIGNATURE FOR ALONZO CAMPOS M.D.- 02/05/08 04:23 pm INTERFACE SYSTEM 02/02/2008 10:1 8 AM 1ST GRADE TEACHER Anabella Ohara MD PATHOLOGY/CYTOLOGY ORDERABLES Final Result INTERFACE SYSTEM Refer to clinic/hospital department documented in this encounter Visit Diagnoses Diagnosis Calculus of gallbladder without mention of cholecystitis or obstruction documented in this encounter Care Teams Marine Water Tender Relationship Specialty Start Date End Date Corinna Arroyo MD [address] [place] [address] PCP - General 08/31/07 documented as of this encounter
--- OUTSIDE RECORDS SUMMARY | 2025-01-10 09:28 | XMS_ITS | Encounter Summary ---
Author Organization [employer] Address 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 Gender Identity Not on file Sexual Orientation Not on file documented as of this encounter Plan of Treatment Not on file documented as of this encounter Procedures Procedure Name Priority Date/Time Associated Diagnosis Comments CERV/VAG CYTOPATH, SUREPATH W/RFLX HPV Routine 10/02/2007 11:34 AM CDT documented in this encounter Results * CERV/VAG CYTOPATH, SUREPATH W/RFLX HPV (10/02/2007 11:34 AM CDT) SOURCE Cervix, Endocervix S [facility] LAST MENSTRUAL PERIOD 07-13-07 [facility] CYTOTECHNOLOGI ST: SEUN CASE(ASCP) [facility] Comment: Lab test performed by: [facility] [address] [place] [address] BEV SRIVASTAVA MD REPORT STATUS FINAL [facility] ADEQUACY: Satisfactory for evaluation. Endocervical/trans formation zone component present. [facility] CLINICAL INFORMATION Information not provided [facility] PAP INTERP Negative for intraepithelial lesion or malignancy. [facility] PREV BX: Information not provided [facility] Egg Caser Pap Comment Based on the cytology result, reflex High Risk HPV DNA testing was not performed. [facility] PREV PAP: Information not provided [facility] Specimen from uterine cervix (specimen) 10/02/2007 11:34 AM CDT 10/03/2007 12:09 PM CDT Tasneem Marshall MD PATHOLOGY/CYTOLOGY ORDERA BLES Final Result [facility] CLIA# [id number] [address] [place] [address] documented in this encounter Visit Diagnoses Diagnosis Routine gynecological examination documented in this encounter Care Teams Baker Bread Relationship Specialty Start Date End Date Corinna Arroyo MD [address] [place] [address] PCP - General 08/31/07 documented as of this encounter
--- OUTSIDE RECORDS SUMMARY | 2025-01-10 09:28 | XMS_ITS | Clinical Summary ---
Author Organization [facility] Address [address] [place] [address] Care Team Providers Care Grades 7 8 Tutor Name Role Phone Corinna Arroyo MD Primary Care Provider [phone] Allergies Active Allergy Reactions Criticality Noted Date [...] on file Legal Sex Female 5:35 AM [employer] Gender Identity Not on file Sexual Orientation Not on file Last Filed Vital Signs Vital Sign Reading Time Taken Comments Blood Pressure 117/82 03/24/2021 9:25 AM [employer] Pulse 80 10/02/2018 10:05 AM CDT Temperature 36.7 C (98 F) 06/27/2017 8:30 AM CDT Respiratory Rate 18 06/27/2017 8:30 AM CDT Oxygen Saturation 98% 06/26/2017 9:30 PM CDT Inhaled Oxygen Concentration - - Weight 133.8 kg (295 lb) 03/24/2021 9:25 AM [employer] Height 162.6 cm (5' 4) 03/24/2021 9:25 AM [employer] Body Mass Index 50.64 03/24/2021 9:25 AM [employer] Plan of Treatment Health Maintenance Due Date Last Done Comments HEPATITIS B VACCINES (1 of 3 - 19+ 3-dose series) 2001 HPV VACCINES (1 - 3-dose SCD M series) 2009 CERVICAL CANCER SCREENING 05/23/2019 PAP SMEAR 05/23/2019 05/22/2018, 0311/2016, 05/20/2016, Additional history exists Pre-Diabetes and Diabetes Screening 10/07/2021 10/07/2018, 03/11/2018, 12/27/2016, Additional history exists BREAST CANCER SCREENING 2022 HPV/Cotest (21-29) 05/23/2023 05/22/2018, 0 05/20/2016, 12/06/2013, Additional history exists HPV/Cotest (30-65) 05/23/2023 05/22/2018, 0 05/20/2016, 12/06/2013, Additional history exists Preventative Visit- Commercial 03/14/2024 0 09/04/2018, 05/22/2018, 05/20/2016, Additional history exists INFLUENZA VACCINE (#1) 2024 8, 12/15/2016, 12/24/2015, Additional history exists DTAP/TDAP/TD VACCINES (2 - T d or Tdap) 04/05/2027 04/05/2017 Procedures Procedure Name Priority Date/Time Associated Diagnosis [...] <5.7 % 10/07/2018 4:[address] [facility] EST. AVG GLUCOSE, A1C 117 mg/dL 10/07/2018 4:[address] [facility] Blood Venipuncture / Unknown 10/07/2018 11:06 AM CDT 10/07/2018 11:[address] [facility] - 10/07/2018 4:45 PM CDT HGB A1C INTERPRETATION NORMAL: <5.7% PRE-DIABETES: 5.7 - 6.4% DIABETES: 6.5% OR GREATER Corinna Arroyo MD CHEMISTRY ORDERABLES Final R esult [facility] CLIA# [id number] [address] [place] [id number] * CERV/VAG CYTO AGE BASED SCREEN PAP (05/22/2018 9:05 AM CDT) COMMENT (PAP): SEE COMMENT 7:50 AM CDT [facility] Comment: This order for age-based cervical cancer and STI screening follows ACOG guidelines(PB 168, 140, KWF045). See individual assays for performing site location. [...] 05/29/2018 7:50 AM CDT [facility] LAUNCH STEWARD: SEE COMMENT 2018 7:50 AM CDT [facility] Comment: MXL, CT(ASCP) CT screening location: [place] [address] [address] [place] [id number] REVIEW LAUNCH STEWARD: SEE COMMENT 05/29/2018 7:50 AM CDT [facility] Comment: AMW, CT(ASCP) CT screening location: [place] [address] [address] [place] [place] [id number] EXPLANATORY NOTE SEE COMMENT 019 7:50 AM [...] was performed using the APTIMA HPV Assay ([employer] This assay detects E6/E7 viral messenger RNA (mRNA) from 14 high-risk HPV types (16,18,31,33,35,39,45,51,52,56,58,59,66,68). The analytical performance characteristics of this assay have been determined by [facility]. The modifications have not been cleared or approved by the FDA. This assay has been validated pursuant to the CLIA regulations and is used for clinical purposes. Genital SWAB OF ENDOCERVIX / Unknown Collection / Unknown 05/22/2018 9:05 AM CDT 05/22/2018 10:49 AM CDT Narrative [facility] - 05/29/2018 7:50 AM CDT Performing Organization Information: Site ID: [id number] Name: [facility] Address: [address] [place] [address] [place] [address] Director: Sanchez Koehler D.O., MPH Site ID: [place] Name: [facility] Address: [address] [address] [place] [id number] Director: Deangelo Valdivia june Vishal DEWEY PATHOLOGY/CYTOLOGY ORDERABLES Final Result [facility] [phone] from Last 3 Months or Most Recently Relevant to Health Maintenance Insurance ADMINISTRATIVE CONCEPTS LBP Advance Directives For more information, please contact: [phone] * Full Code (Latest Code Status on File) Date Activated Date Inactivated Comments 06/25/2017 6:02 AM 06/27/2017 1:36 PM * Full Code Date Activated Date Inactivated Comments 06/24/2017 10:03 AM 06/25/2017 2:21 AM * Full Code Date Activated Date Inactivated Comments 06/24/2017 9:29 AM 06/24/2017 10:03 AM Care Teams Grades 7 8 Tutor Relationship Specialty Start Date End Date Corinna Arroyo MD [address] [place] [id number] PCP - General 08/31/07
== END 2025-01-10 08:59 | disposition home or self-care (01) ==
LOC: CHSIMG 09:02
PROVIDERS: PCP Nurse Practitioner Family; Visit Provider Obstetrics & Gynecology
DX: R92.8 Other abnormal and inconclusive findings on diagnostic imaging of breast (principal); R93.89 Abnormal findings on diagnostic imaging of other specified body structures
CPT/HCPCS: 76642